=== PATIENT | female | born 1990 | race Caucasian/White ===

== ENCOUNTER 2017-04-14 21:39 | Inpatient (IN) ==
[2017-04-14] MEDS ORDERED: Famotidine 20 MG/2 ML VIAL IVP ONE (21:56)
[2017-04-14] MEDS ORDERED: Promethazine 12.5 MG in 0.9 % Sodium Chloride 50 ML IVPB ONE (21:57)
[2017-04-14] MEDS ORDERED: D5% in 0.45% NACL 1,000 ML IVC SCH (22:00)
--- NOTE | 2017-04-14 22:00 | Emergency Department Note ---
Disposition Clinical Impression: Dehydration, Nausea and vomiting during Disposition: Admitted As Inpatient Condition: Good Nausea/Vomiting/Diarrhea HPI - General Chief complaint: ED Nausea/Vomiting/Diarrhea Stated complaint: vomiting since seen last week Time Seen by Provider: 04/14/17 21:50 Source: patient, family Mode of arrival: ambulatory Limitations: no limitations Nursing Notes Reviewed: Yes Vital Signs Reviewed: Yes - History of Present Illness HPI Narrative: Patient is a currently 8 weeks who complains of persistent nausea and vomiting. Symptoms present for the past several days. She is taking Phenergan and Benadryl at home but states she cannot keep it down. She feels dehydrated. She complains of palpitations and chest pain. She also complains of epigastric pain. She was recently seen for similar symptoms and transferred to [facility]. She states she transiently felt better upon discharge. Pt Subjective Complaint: nausea, vomiting, abdominal pain Onset (ago): day(s) Description of emesis: food contents Associated Abdominal Pain: Yes If pain, Location of pain: epigastric Consistency: intermittent Improves with: nothing Worsens with: vomiting Associated symptoms: Reports: chest pain - Related Data Home Medications Medication Instructions Recorded Confirmed Albuterol Sulfate [Albuterol 1 puff IH Q4HR PRN 01/22/17 04/04/17 Inhaler] Benadryl 25 mg PO Q6HR PRN 04/15/17 04/15/17 Buprenorphine HCl/Naloxone HCl 1 each SL DAILY 04/15/17 04/15/17 [Suboxone 8 mg-2 mg Sl Film] Promethazine [Phenergan] 25 mg PO Q6HR 04/15/17 04/15/17 Previous Rx's Medication Instructions Recorded Ondansetron ODT [Zofran ODT] 4 mg SL Q6HR PRN #20 tab.rapdis 04/03/17 Famotidine [Pepcid] 20 mg PO BID #20 tablet 04/04/17 Ondansetron ODT [Zofran ODT] 4 mg SL Q6HR PRN #12 tab.rapdis 04/04/17 Allergies Allergy/AdvReac Type Severity Reaction Status Date / Time cephalexin [From Keflex] Allergy Rash Verified 04/10/17 22:37 Penicillins [PCN] Allergy Hives Verified 04/10/17 22:37 tramadol [From Ultram] Allergy Chest Pain Verified 04/10/17 22:37 All systems ED: reviewed and negative except as stated. Constitutional: Reports: as per HPI Eyes: Reports: as per HPI ENT ED: Reports: as per HPI Cardiovascular: Reports: chest pain, palpitations Respiratory: Reports: as per HPI Gastrointestinal: Reports: abdominal pain, nausea, vomiting Genitourinary: Reports: as per HPI Musculoskeletal: Reports: back pain Integumentary: Reports: as per HPI Neurological: Reports: as per HPI Psychiatric: Reports: as per HPI Endocrine: Reports: as per HPI Hematological/Lymphatic: Reports: as per HPI Allergic/Immunologic: Reports: as per HPI Past Medical History - Past Medical History Source: patient Medical history: Reports: asthma Surgical history: Reports: cholecystectomy Psychiatric history: Reports: anxiety TOWING PILOT history: Reports: no TOWING PILOT history - Social History Smoking Status: Current every day smoker Smokeless Tobacco Status: No Alcohol use: Reports: none Drug use: Reports: prescription drug abuse Physical Exam - General Limitations: no limitations General appearance: alert, in no apparent distress - Head Head exam: atraumatic - Eye Eye exam: Present: normal appearance - ENT ENT exam: normal exam - Neck Neck exam: Present: normal inspection - Chest Chest inspection: Present: normal inspection, symmetric chest wall rise - Respiratory Respiratory exam: Present: normal lung sounds bilaterally - Cardiovascular Cardiovascular exam: Present: tachycardia, normal heart sounds - Abdominal Exam Abdominal exam: Present: soft, tenderness (minimal tenderness at the epigastrium ) - Rectal Exam Rectal exam: Present: deferred - Extremities Exam Extremities exam: Present: normal inspection - Neurological Exam Neurological exam: Present: alert, oriented X3, CN II-XII intact - Psychiatric Psychiatric exam: Present: normal affect, normal mood - Skin Skin exam: Present: warm, dry, intact Course Course Narrative: Patient complains of continued nausea and vomiting. She is a currently 8 weeks . She is tachycardic on exam. I will hydrate and provide anti- emetics. I will check labs and reassess. - Reevaluation(s) Reevaluation #1: Care to be endorsed to Dr. Melendez at 23:00 pending labs, re-eval Vital Signs Temperature 97.7 F 04/14/17 21:42 Pulse Rate 140 04/14/17 21:42 Respiratory Rate 18 04/14/17 21:42 Blood Pressure 112/77 04/14/17 21:42 O2 Sat by Pulse Oximetry 95 04/14/17 21:42 Temperature 98.3 F 04/15/17 08:00 Pulse Rate 111 04/15/17 08:00 Respiratory Rate 16 04/15/17 08:00 Blood Pressure 123/88 04/15/17 08:00 O2 Sat by Pulse Oximetry 97 04/15/17 08:00 Oxygen Delivery Oxygen Delivery Room Air Nausea/Vomiting/Diarrhea - Medical Records Medical records reviewed: Yes I reviewed the patient's medical records. - Lab Data Result diagrams: 04/14/17 23:15 04/14/17 23:15 Lab Results 04/14/17 04/14/17 04/14/17 Range/Units 22:50 23:15 23:15 WBC 22.8 H (4.3-11.1) K/mcL RBC 5.42 H (3.82-4.97) M/mcL Hgb 16.1 H (11.5-15.4) g/dL Hct 44.5 (35.3-44.9) % MCV 82.1 L (83.0-100.0) fL MCH 29.7 (28.0-33.3) pg MCHC 36.2 H (31.6-35.5) g/dL RDW 12.1 (11.5-14.5) % Plt Count 421 H (140-400) K/mcL MPV 9.7 (9.4-12.4) fL Immature Gran % 0.4 (0-4) % Seg Neutrophils % 72.9 % Lymphocytes % 18.8 % Monocytes % 7.0 % Eosinophils % 0.6 % Basophils % 0.3 % Neutrophils # 16.7 H (1.6-8.9) K/mcL Lymphocytes # 4.3 (0.6-4.6) K/mcL Monocytes # 1.6 H (0.0-1.3) K/mcL Eosinophils # 0.1 (0.0-0.6) K/mcL Basophils # 0.1 (0.0-0.2) K/mcL Sodium 134 L (136-145) mEq/L Potassium 3.5 (3.5-4.5) mEq/L Chloride 99 (98-109) mEq/L Carbon Dioxide 20 (19-29) mEq/L BUN 8 (7-20) mg/dL Creatinine 0.61 (0.57-1.11) mg/dL Est GFR ( Amer) > 60 (> 60) Est GFR (Non-Af Amer) > 60 (> 60) BUN/Creatinine Ratio 13 (6-26) Glucose 100 H (70-99) mg/dL Calculated Osmolality 276 L (280-300) Calcium 10.4 (8.6-10.8) mg/dL Magnesium 2.1 (1.6-2.6) mg/dL Total Bilirubin 0.7 (0.2-1.2) mg/dL AST 38 H (5-34) Units/L ALT 80 H (0-55) Units/L Alkaline Phosphatase 94 (38-126) Units/L Serum Total Protein 8.3 (6.0-8.3) g/dL Albumin 4.6 (3.5-5.0) g/dL Globulin 3.7 H (2.4-3.5) g/dL Albumin/Globulin Ratio 1.2 (1.1-2.2) Lipase 24 (8-78) Units/L Urine Color Dark Yellow (Yellow) Urine Clarity Cloudy A (Clear) Urine pH 6.5 (5.0-8.0) pH Units Ur Specific [place] > 1.030 H (1.010-1.025) Urine Protein >=300 H (Neg-Trace) mg/dL Urine Glucose (UA) 100 H (Normal) mg/dL Urine Ketones >=160 H (Negative) mg/dL Urine Blood Trace H (Negative) Urine Nitrite Negative (Negative) Urine Bilirubin Small H (Negative) Urine Urobilinogen Normal (Normal) mg/dL Ur Leukocyte Esterase Negative (Negative) Urine Microscopic RBC 0-3 (0-3) per hpf Urine Microscopic WBC 3-5 H (0-3) per hpf Ur Squamous Epith Cells Many H (None-Few) per lpf Urine Bacteria Few (None-Few) per hpf Hyaline Casts Few (None-Few) per lpf - EKG Data EKG attestation: Yes I reviewed and interpreted this EKG. EKG results narrative: Sinus tachycardia rate 116 CO 132 QRS 82 QT/QTC 317/386. No acute ST segment elevation
[2017-04-14] MEDS ORDERED: *HR* Promethazine 25 MG/ML VIAL IV ONE (22:15)
--- NOTE | 2017-04-14 23:08 | Emergency Department Note ---
Disposition Clinical Impression: Dehydration, Nausea and vomiting during Disposition: Admitted As Inpatient Condition: Good Referrals: NONE,PCP [Primary Care Provider] - Forms: ED Satisfaction Letter Time of Disposition: 00:53 Nausea/Vomiting/Diarrhea HPI - General Chief complaint: ED Nausea/Vomiting/Diarrhea Stated complaint: vomiting since seen last week Time Seen by Provider: 04/14/17 21:50 Source: patient, family Mode of arrival: ambulatory Limitations: no limitations - History of Present Illness Pt Subjective Complaint: nausea, vomiting, abdominal pain Description of emesis: food contents Associated Abdominal Pain: Yes If pain, Location of pain: epigastric Improves with: nothing Worsens with: vomiting Associated symptoms: Reports: chest pain - Related Data Home Medications Medication Instructions Recorded Confirmed Albuterol Sulfate [Albuterol 1 puff IH Q4HR PRN 01/22/17 04/04/17 Inhaler] Previous Rx's Medication Instructions Recorded Ondansetron ODT [Zofran ODT] 4 mg SL Q6HR PRN #20 tab.rapdis 04/03/17 Famotidine [Pepcid] 20 mg PO BID #20 tablet 04/04/17 Ondansetron ODT [Zofran ODT] 4 mg SL Q6HR PRN #12 tab.rapdis 04/04/17 Allergies Allergy/AdvReac Type Severity Reaction Status Date / Time cephalexin [From Keflex] Allergy Rash Verified 04/10/17 22:37 Penicillins [PCN] Allergy Hives Verified 04/10/17 22:37 tramadol [From Ultram] Allergy Chest Pain Verified 04/10/17 22:37 Constitutional: Reports: as per HPI Eyes: Reports: as per HPI ENT ED: Reports: as per HPI Cardiovascular: Reports: chest pain, palpitations Respiratory: Reports: as per HPI Gastrointestinal: Reports: abdominal pain, nausea, vomiting Genitourinary: Reports: as per HPI Musculoskeletal: Reports: back pain Integumentary: Reports: as per HPI Neurological: Reports: as per HPI Psychiatric: Reports: as per HPI Endocrine: Reports: as per HPI Hematological/Lymphatic: Reports: as per HPI Allergic/Immunologic: Reports: as per HPI Past Medical History - Past Medical History Medical history: Reports: asthma Surgical history: Reports: cholecystectomy Psychiatric history: Reports: anxiety EXTRACT OPERATOR history: Reports: no EXTRACT OPERATOR 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 She has not been able to eat or drink anything over the last several days to weeks. She was seen earlier this week and transferred to [facility] for symptomatic treatment. She is provided with IV Phenergan at that facility and then discharged home with the same medication. She has been unable to take that home would last several days. Denies any other complaints or issues. No vaginal discharge. Denies any fevers or chills at home. Patient has significant emesis secondary to what appears to be hyperemesis gravidarum. Lungs are clear heart is regular abdomen is soft. Patient does have some diminished skin turgor and dry mucous members. IV access. And nausea medication management will be given consideration to get achieved with the Phenergan and her previous evaluation. Labs will be drawn and collected. Expect patient will most likely need admission to the hospital for poorly controlled emesis outpatient management. Patient is otherwise stable resting comfortably by this time and understands a productive course of care. No other concerns or issues noted initially. - Reevaluation(s) Reevaluation #1: She still has significant protein and ketones in her urine. She does have an elevated white blood cell count is most likely reactionary. Patient is still only 8 weeks and is not a viable this point. Patient denies any bleeding or discharge at this point. Fluids been provided along with Phenergan for nausea control. Nausea is better for a while but is coming back at this point. Repeat dosing of Phenergan to be given in the admission process for hyperemesis to be completed. Patient family was informed and comfortable this plan. Discussed this with the hospital since he is comfortable taking care of this patient here in our facility. Dr. Contreras the on-call obstetrics provider was contacted. She requested a serum ketone evaluation test positive she is happy to keep the patient here in the hospital for evaluation. No other concerns or issues noted this point. Fluid hydration and antiemetics to be given. Patient is otherwise resting comfortably in the bed. Time: 00:52 Reevaluation #2: She does have elevated ketones in the serum at this time. Patient will be admitted to the obstetrics floor for further evaluation. Time: 01:28 Vital Signs Temperature 97.7 F 04/14/17 21:42 Pulse Rate 140 04/14/17 21:42 Respiratory Rate 18 04/14/17 21:42 Blood Pressure 112/77 04/14/17 21:42 O2 Sat by Pulse Oximetry 95 04/14/17 21:42 Temperature 97.7 F 04/14/17 21:42 Pulse Rate 140 04/14/17 21:42 Respiratory Rate 18 04/14/17 21:42 Blood Pressure 112/77 04/14/17 21:42 O2 Sat by Pulse Oximetry 95 04/14/17 21:42 Oxygen Delivery Oxygen Delivery Room Air Nausea/Vomiting/Diarrhea - MDM Narrative Medical decision making narrative: Hyperemesis gravidarum. First trimester gestation. - Medical Records Medical records reviewed: Yes I reviewed the patient's medical records. - Lab Data Lab results reviewed: Yes I reviewed the patient's lab results. Result diagrams: 04/14/17 23:15 04/14/17 23:15 Lab Results 04/14/17 04/14/17 04/14/17 Range/Units 22:50 23:15 23:15 WBC 22.8 H (4.3-11.1) K/mcL RBC 5.42 H (3.82-4.97) M/mcL Hgb 16.1 H (11.5-15.4) g/dL Hct 44.5 (35.3-44.9) % MCV 82.1 L (83.0-100.0) fL MCH 29.7 (28.0-33.3) pg MCHC 36.2 H (31.6-35.5) g/dL RDW 12.1 (11.5-14.5) % Plt Count 421 H (140-400) K/mcL MPV 9.7 (9.4-12.4) fL Immature Gran % 0.4 (0-4) % Seg Neutrophils % 72.9 % Lymphocytes % 18.8 % Monocytes % 7.0 % Eosinophils % 0.6 % Basophils % 0.3 % Neutrophils # 16.7 H (1.6-8.9) K/mcL Lymphocytes # 4.3 (0.6-4.6) K/mcL Monocytes # 1.6 H (0.0-1.3) K/mcL Eosinophils # 0.1 (0.0-0.6) K/mcL Basophils # 0.1 (0.0-0.2) K/mcL Sodium 134 L (136-145) mEq/L Potassium 3.5 (3.5-4.5) mEq/L Chloride 99 (98-109) mEq/L Carbon Dioxide 20 (19-29) mEq/L BUN 8 (7-20) mg/dL Creatinine 0.61 (0.57-1.11) mg/dL Est GFR ( Amer) > 60 (> 60) Est GFR (Non-Af Amer) > 60 (> 60) BUN/Creatinine Ratio 13 (6-26) Glucose 100 H (70-99) mg/dL Calculated Osmolality 276 L (280-300) Calcium 10.4 (8.6-10.8) mg/dL Magnesium 2.1 (1.6-2.6) mg/dL Total Bilirubin 0.7 (0.2-1.2) mg/dL AST 38 H (5-34) Units/L ALT 80 H (0-55) Units/L Alkaline Phosphatase 94 (38-126) Units/L Serum Total Protein 8.3 (6.0-8.3) g/dL Albumin 4.6 (3.5-5.0) g/dL Globulin 3.7 H (2.4-3.5) g/dL Albumin/Globulin Ratio 1.2 (1.1-2.2) Lipase 24 (8-78) Units/L Urine Color Dark Yellow (Yellow) Urine Clarity Cloudy A (Clear) Urine pH 6.5 (5.0-8.0) pH Units Ur Specific [place] > 1.030 H (1.010-1.025) Urine Protein >=300 H (Neg-Trace) mg/dL Urine Glucose (UA) 100 H (Normal) mg/dL Urine Ketones >=160 H (Negative) mg/dL Urine Blood Trace H (Negative) Urine Nitrite Negative (Negative) Urine Bilirubin Small H (Negative) Urine Urobilinogen Normal (Normal) mg/dL Ur Leukocyte Esterase Negative (Negative) Urine Microscopic RBC 0-3 (0-3) per hpf Urine Microscopic WBC 3-5 H (0-3) per hpf Ur Squamous Epith Cells Many H (None-Few) per lpf Urine Bacteria Few (None-Few) per hpf Hyaline Casts Few (None-Few) per lpf
[2017-04-14 23:25] LABS: Basophils # 0.1 K/mcL (0.0-0.2); Basophils % 0.3 %; Eosinophils # 0.1 K/mcL (0.0-0.6); Eosinophils % 0.6 %; Hematocrit 44.5 % (35.3-44.9); Hemoglobin 16.1 g/dL (11.5-15.4); Immature Granulocytes % 0.4 % (0-4); Lymphocytes # 4.3 K/mcL (0.6-4.6); Lymphocytes % 18.8 %; Mean Corpuscular HGB Conc 36.2 g/dL (31.6-35.5); Mean Corpuscular Hemoglobin 29.7 pg (28.0-33.3); Mean Corpuscular Volume 82.1 fL (83.0-100.0); Mean Platelet Volume 9.7 fL (9.4-12.4); Monocytes # 1.6 K/mcL (0.0-1.3); Neutrophils # 16.7 K/mcL (1.6-8.9); Platelet Count 421 K/mcL (140-400); Red Blood Count 5.42 M/mcL (3.82-4.97); Red Cell Distribution Width 12.1 % (11.5-14.5); Segmented Neutrophils % 72.9 %
[2017-04-14 23:36] LABS: Alanine Aminotransferase 80 Units/L (0-55); Albumin 4.6 g/dL (3.5-5.0); Albumin/Globulin Ratio 1.2 (1.1-2.2); Alkaline Phosphatase 94 Units/L (38-126); Aspartate Amino Transferase 38 Units/L (5-34); BUN/Creatinine Ratio 13 (6-26); Bilirubin,Total 0.7 mg/dL (0.2-1.2); Blood Urea Nitrogen 8 mg/dL (7-20); Calcium 10.4 mg/dL (8.6-10.8); Carbon Dioxide 20 mEq/L (19-29); Chloride 99 mEq/L (98-109); Globulin 3.7 g/dL (2.4-3.5); Glucose 100 mg/dL (70-99); Lipase 24 Units/L (8-78); Magnesium 2.1 mg/dL (1.6-2.6); Osmolality,Calculated 276 (280-300); Potassium 3.5 mEq/L (3.5-4.5); Sodium 134 mEq/L (136-145); Total Protein 8.3 g/dL (6.0-8.3); eGFR For African Americans > 60 (> 60); eGFR For Non-African Americans > 60 (> 60)
[2017-04-14 23:59] LABS: Bilirubin,Urine Small (Negative); Blood,Urine Trace (Negative); Clarity,Urine Cloudy (Clear); Color,Urine Dark Yellow (Yellow); Glucose,Urine (UA) 100 mg/dL (Normal); Ketones,Urine >=160 mg/dL (Negative); Leukocyte Esterase,Urine Negative (Negative); Nitrite,Urine Negative (Negative); PH,Urine 6.5 pH Units (5.0-8.0); Protein,Urine >=300 mg/dL (Neg-Trace); Specific Gravity,Urine > 1.030 (1.010-1.025); Urobilinogen,Urine Normal (Normal)
[2017-04-15] LABS: Bacteria,Urine Few per hpf (None-Few); Hyaline Casts,Urine Few per lpf (None-Few); RBC,Urine 0-3 per hpf (0-3); Squamous Epithelial Cell,Urine Many per lpf (None-Few)
[2017-04-15] MEDS ORDERED: *HR* Promethazine 25 MG/ML VIAL IVP ONE (01:27)
[2017-04-15] MEDS: D5% in 0.45% NACL 1,000 ML IVC SCH ×4 (01:47→22:10)
[2017-04-15] MEDS: Promethazine 25 MG in 0.9 % Sodium Chloride 50 ML IVPB SCH ×3 (02:18→15:23)
[2017-04-15 03:09] LABS: Amphetamine Screen,Urine Negative ng/mL (Cutoff=1000); Barbiturate Screen,Urine Negative ng/mL (Cutoff=200); Benzodiazepines Screen,Urine Negative ng/mL (Cutoff=200); Cannabinoid Screen,Urine Positive ng/mL (Cutoff = 50); Cocaine Screen,Urine Negative ng/mL (Cutoff= 300); Opiate Screen,Urine Negative ng/mL (Cutoff=300); Phencyclidine Screen,Urine Negative ng/mL (Cutoff=25)
[2017-04-15] MEDS: Famotidine 20 MG/2 ML VIAL IVP SCH ×2 (05:54→18:12)
--- NOTE | 2017-04-15 08:53 | OB/GYN History & Physical ---
Date of Encounter: 04/15/17 Time of Encounter: 07:50 Assessment and Plan (1) Nausea and vomiting during Current visit: Yes Status: Acute BP is normotensive at 123/88. She is afebrile. Tachycardia at 111 likely secondary to some dehydration. Elevated liver enzymes likely secondary to hyperemesis. Patient denies any history of hepatitis. Elevated Beta- hydroxybuyric acid likely secondary to hyperemesis. Corrected AG at 13.5. Slightly hyponatremic. Other electrolytes within normal ranges. Lipase within normal range. UA non indicative of infection. UDS was positive for THC. WBC elevated at 22.8 which is likely reactionary secondary to dehydration. - Continue IV fluids. - Continue Bendaryl PRN. - Pepcid. - Continue Phenergan. - Regular diet. - Obtain lab records from [facility]. (2) Dehydration Current visit: Yes Status: Acute (3) Drug addiction Current visit: No Status: Acute Patient has been taking suboxone at home for past 6 months. (4) 9 weeks gestation of Current visit: Yes Status: Acute History of Present Illness Chief complaint: Nausea/vomiting HPI: Ms. Callahan is a 27 year old female at 9 weeks gestation that presents for nausea/vomiting. Patient says that she started experiencing symptoms of MCCOY, ear aches, head congestion, cough, fever, chills, and total body cramps on . She then proceeded to have persistent vomiting everyday since 03/30/17. She says she has not been able to eat anything since then because she ends up vomiting anything she eats. She has been taking Phenergan and Benadryl at home but states that she hasn't been able to keep it down. She reported to the ER at [facility] on 04/10/17 and was discharged after feeling better, but came to [place] ER on 04/14/17 after she got worse again. Patient had significant protein and ketones in her urine and had an elevated WBC count. She was complaining of chest pain last night with radiation to her left arm. An EKG was done and showed a sinus tachycardia with no ST-elevations or other ischemic changes. No significant changes of EKG from 2005. When seen today, patient says she feels much better than last night. She denies any MCCOY, vision changes, fever, chills, or dizziness, but still admits to some nausea. Last time she vomited was at 0200 at night. She says that she has been able to eat some crackers today and not vomit for the first time since 03/30/17. She denies having any blood in her urine. She says she has not had a bowel movement since her symptoms started on the . She does admit that she had some minor vaginal blood spotting 3 days ago. Patient says that she has been on suboxone for the past 6 months. She denies any history of hepatitis. Agree with above note, patient states that the last time she "Suboxone off the straight was 23 days ago. She states she has had nothing in that time symptoms have progressively gotten worse since then also. On the patient did have a positive opiate drug screen. Patient was in our Suboxone group in the past but according to the physician that ran that practice she was dismissed for noncompliance. Patient states she was seeing someone up in [place] but has not done there in some time now. Patient's had 3 visits in the last week for similar complaints it was noted that her white count has slowly been elevating and urinalysis looks like she might have a UTI. Patient has characteristics of some ongoing through withdrawals we will consult the hospitalist to evaluate the patient go-ahead started on antibiotics and then wait and see what additional laboratory might need. At this time we will wait to see what they recommend before changing her antinausea medicine Past Med Surg Social Fam HX - Past Medical History Medical history: asthma Psychiatric history: anxiety - Past Surgical History Surgical History: cholecystectomy - Social History Smoking Status: Current every day smoker Smokeless Tobacco Status: No Alcohol use: none Drug use: prescription drug abuse Obstetrical History - Pregnancies : 5 Para: 4 Term: 4 : 0 Ab's: 0 Livin Medications and Allergies Albuterol Sulfate [Albuterol Inhaler] 1 puff IH Q4HR PRN 01/22/17 [History] Ondansetron ODT [Zofran ODT] 4 mg SL Q6HR PRN #20 tab.rapdis 04/03/17 [Rx] Famotidine [Pepcid] 20 mg PO BID #20 tablet 04/04/17 [Rx] Ondansetron ODT [Zofran ODT] 4 mg SL Q6HR PRN #12 tab.rapdis 04/04/17 [Rx] Benadryl 25 mg PO Q6HR PRN 04/15/17 [History] Buprenorphine HCl/Naloxone HCl [Suboxone 8 mg-2 mg Sl Film] 1 each SL DAILY 10/25 [History] Promethazine [Phenergan] 25 mg PO Q6HR 04/15/17 [History] 3 Allergy/AdvReac Type Severity Reaction Status Date / Time cephalexin [From Keflex] Allergy Rash Verified 04/10/17 22:37 Penicillins [PCN] Allergy Hives Verified 04/10/17 22:37 tramadol [From Ultram] Allergy Chest Pain Verified 04/10/17 22:37 Exam - Vital Signs Vital signs: Initial Vital Signs Temp Pulse Resp BP Pulse Ox 97.7 F 140 18 112/77 95 04/14/17 21:42 04/14/17 21:42 04/14/17 21:42 04/14/17 21:42 04/14/17 21:42 - Constitutional Constitutional: well developed, well nourished, no acute distress, average body habitus - Lungs Respiratory exam: CTAB - Cardiovascular Cardiovascular exam: RRR, +S1, +S2 - Abdomen Abdomen: Present: bowel sounds normal. Absent: guarding noted Abdomen detail: right upper quadrant: tenderness (Minor tenderness with deep palpation B/L. ), right lower quadrant: tenderness - Extremities Extremities exam: full ROM, normal inspection, radial pulses palpable and symmetrical Deep Tendon Reflex Grade: 2+ Normal Results Result Diagrams: 04/14/17 23:15 04/14/17 23:15 Abnormal lab results WBC 22.8 K/mcL (4.3-11.1) H 04/14/17 23:15 RBC 5.42 M/mcL (3.82-4.97) H 04/14/17 23:15 Hgb 16.1 g/dL (11.5-15.4) H 04/14/17 23:15 MCV 82.1 fL (83.0-100.0) L 04/14/17 23:15 MCHC 36.2 g/dL (31.6-35.5) H 04/14/17 23:15 Plt Count 421 K/mcL (140-400) H 04/14/17 23:15 Neutrophils # 16.7 K/mcL (1.6-8.9) H 04/14/17 23:15 Monocytes # 1.6 K/mcL (0.0-1.3) H 04/14/17 23:15 Sodium 134 mEq/L (136-145) L 04/14/17 23:15 Glucose 100 mg/dL (70-99) H 04/14/17 23:15 Calculated Osmolality 276 (280-300) L 04/14/17 23:15 AST 38 Units/L (5-34) H 04/14/17 23:15 ALT 80 Units/L (0-55) H 04/14/17 23:15 Globulin 3.7 g/dL (2.4-3.5) H 04/14/17 23:15 Beta-Hydroxybutyric Acd 1.75 mmol/L (0.02-0.27) H 04/15/17 01:08 EST Urine Clarity Cloudy (Clear) A 04/14/17 22:50 Ur Specific [place] > 1.030 (1.010-1.025) H 04/14/17 22:50 Urine Protein >=300 mg/dL (Neg-Trace) H 04/14/17 22:50 Urine Glucose (UA) 100 mg/dL (Normal) H 04/14/17 22:50 Urine Ketones >=160 mg/dL (Negative) H 04/14/17 22:50 Urine Blood Trace (Negative) H 04/14/17 22:50 Urine Bilirubin Small (Negative) H 04/14/17 22:50 Urine Microscopic WBC 3-5 per hpf (0-3) H 04/14/17 22:50 Ur Squamous Epith Cells Many per lpf (None-Few) H 04/14/17 22:50 U Marijuana (THC) Screen Positive ng/mL (Cutoff = 50) H 04/15/17 02:50 All other labs normal. - Attending Attestation I examined this patient and my medical decision-making was reviewed with the Resident Physician. I agree with the documented findings, disposition and treatment plan as described except to the extent set forth below. Rafael Vazquez DO
[2017-04-15] MEDS ORDERED: Gentamicin 120 MG in 0.9 % Sodium Chloride 100 ML IVPB ONE (13:27)
--- NOTE | 2017-04-15 14:37 | Internal Medicine Consult Note ---
Date of Encounter: 04/15/17 Time of Encounter: 14:33 - Assessment and Plan (1) Nausea and vomiting during Current Visit: Yes Status: Acute Assessment and plan: suspect multifactorial with hyperemesis gravidarum. Also component of suboxone withdrawal and possible UTI/SIRS. (2) Drug addiction Current Visit: No Status: Acute Assessment and plan: Uses 1/2 tab suboxone BID. Will start subutex 2mg QD for now and monitor response - discussed risk and benefit with patient related to 1st trimester and potential for harm, addiction. Also d/w primary service. Will need to establish with Dr Davila and wean off. (3) SIRS (systemic inflammatory response syndrome) Current Visit: Yes Status: Acute Assessment and plan: urine and blood cx ordered Possible UTI On empiric gent IV IVF trend lactate (4) UTI (urinary tract infection) Current Visit: Yes Status: Acute Assessment and plan: on antibiotics Qualifiers: Urinary tract infection type: acute cystitis Qualified Code(s): N30.00 - Acute cystitis without hematuria (5) 9 weeks gestation of Current Visit: Yes Status: Acute Assessment and plan: management per OB. Will need social work, case packer and for patient to see Dr davila for comprehensive care in this complicated . High risk for morbidity and mortality due to the above Internal Medicine - CN: HPI - Data of Consult Requesting Physician: Michelle Contreras - Consult Narrative Reason for consult: Withdrawal, emesis, elevated WBC History of present illness: Ms. Callahan is a 27 year old female who has not received pre-rolo care and is approx 8 week (has 5 children at home) who presents with intracted n/v since Mar. Found elevated WBC and pyuria suspicious for UTI. Of not, she has been a self-prescribed suboxone user 1/2 tab BID for last 6-8 months. She was previously self medicating with off the streets opiate for her dental pain but transitioned to suboxone as she was told that it would not cause her to be addicted - unlike pain medications. Her last subutex dose was 3 days ago. She is displaying new diarrhea today along with chest, abdo cramps, anxiety concerning for acute suboxone withdrawal. ROS positive for chills. Past Med Surg Social Fam HX - Past Medical History Medical history: asthma Psychiatric history: anxiety - Past Surgical History Surgical History: cholecystectomy - Social History Smoking Status: Current every day smoker Smokeless Tobacco Status: No Alcohol use: none Drug use: prescription drug abuse - Additional Family History Additional family history: HTN Review of systems: ROS 14 point review of systems reviewed as best as possible given presentation. Pertinent positive or negative as per HPI or otherwise reviewed as negative Internal Medicine - CN: Meds Albuterol Sulfate [Albuterol Inhaler] 1 puff IH Q4HR PRN 01/22/17 [History] Ondansetron ODT [Zofran ODT] 4 mg SL Q6HR PRN #20 tab.rapdis 04/03/17 [Rx] Famotidine [Pepcid] 20 mg PO BID #20 tablet 04/04/17 [Rx] Ondansetron ODT [Zofran ODT] 4 mg SL Q6HR PRN #12 tab.rapdis 04/04/17 [Rx] Benadryl 25 mg PO Q6HR PRN 04/15/17 [History] Buprenorphine HCl/Naloxone HCl [Suboxone 8 mg-2 mg Sl Film] 1 each SL DAILY 10/25 [History] Promethazine [Phenergan] 25 mg PO Q6HR 04/15/17 [History] 3 Allergy/AdvReac Type Severity Reaction Status Date / Time cephalexin [From Keflex] Allergy Rash Verified 04/10/17 22:37 Penicillins [PCN] Allergy Hives Verified 04/10/17 22:37 tramadol [From Ultram] Allergy Chest Pain Verified 04/10/17 22:37 Internal Medicine - CN: Exam - Constitutional Vitals: Temp Pulse Resp BP Pulse Ox 98.6 F 93 16 152/99 98 04/15/17 13:32 04/15/17 13:32 04/15/17 13:32 04/15/17 13:32 04/15/17 13:32 Exam: General - AAO x 3 Psych - Appropriate affect/speech. No agitation Eyes - GIBSON. Eye lids intact. No scleral icterus Heart - Sinus. RRR. S1 and S2 present. No added HS/murmurs appreciated. No elevated JVD appreciated. Lung - Adequate air entry b/l, No crackles/wheezes appreciated GI - Soft, non-tender. No hepatosplenomegaly/ascites. BS+ - No CVA/suprapubic tenderness or palpable bladder distension Skin - Intact. No rash/petechiae/ecchymosis. Warm extremities Internal Medicine - CN: Reslt - Labs CBC & Chem 7: 04/14/17 23:15 04/14/17 23:15 Consult Discharge Plan - Plan Referrals: NONE,PCP [Primary Care Provider] -
--- NOTE | 2017-04-15 14:56 | OB/GYN Progress Note ---
Date of Encounter: 04/15/17 Time of Encounter: 14:45 - Assessment and Plan (1) Chest pain Current Visit: No Status: Acute Patient unable to describe chest pain symptoms in full detail. EKG was ordered and revealed a normal sinus rhythm with no ST-elevations or signs of ischemic changes. Qualifiers: Chest pain type: unspecified Qualified Code(s): R07.9 - Chest pain, unspecified (2) Nausea and vomiting during Current Visit: Yes Status: Acute Patient continues to feel nausea and is vomiting. She has been unable to eat. Given her symptoms and history of suboxone use and the fact that her last dose was 3 days ago and she has been taking it intermittently for the past month, her current state is probably a combination of hyperemesis gravidum and opiod withdrawl. - Internal medicine consult order. - Continue IV fluids. - Continue Bendaryl PRN. - Pepcid. - Continue Phenergan. - Regular diet. - Obtain lab records from [facility]. (3) Dehydration Current Visit: Yes Status: Acute - Continue IV fluids. (4) Drug addiction Current Visit: No Status: Acute Per IM consult, patient has been started on suboxone. (5) UTI (urinary tract infection) Current Visit: Yes Status: Acute Possible UTI. Per IM consult, urine and blood culture were ordered. - On Gentamicin. Qualifiers: Urinary tract infection type: acute cystitis Hematuria presence: without hematuria Qualified Code(s): N30.00 - Acute cystitis without hematuria (6) 9 weeks gestation of Current Visit: Yes Status: Acute Subjective - Subjective Principal diagnosis: Nausea/vomiting Interval history: Patient says that she has been having chest pain. She said it was located all across her chest. She continues to complain of nausea, muscle aches, rhinorrea, diarrhea, and insomnia. She denies any fever. She said she was had two incidents of vomiting since this morning. She has still been unable to eat without feeling nauseous and vomiting. She refused to give more information as she was afraid of vomiting. I evaluated the patient with the resident and agree with the above Objective - Vital Signs Vital Signs: Vital Signs Temp Pulse Pulse Resp BP Pulse Ox 04/15/17 13:32 98.6 F 93 16 152/99 98 04/15/17 08:00 98.3 F 111 111 16 123/88 97 04/15/17 06:17 97.5 F L 95 16 119/80 98 04/15/17 01:45 EST 98.5 F 108 16 118/87 97 04/15/17 01:20 EST 16 132/70 Intake and Output 04/15/17 04/15/17 04/15/17 00:59 07:59 15:59 Intake Total 1250 / 1250 Output Total 800 / 800 Balance 450 / 450 Intake: IV Fluids 950 / 950 D5% And 0.45% Nacl 1000 Ml Bag 950 / 950 1,000 ML @ 150 mls/hr IVC . Q6H40M [facility] Rx#:[id number] Phenergan 25 MG In 0.9 % Sodium Chloride 50 ML @ 204 mls/hr IVPB Q8HR [facility] Rx#:[id number] Oral 300 / 300 Output: Urine 500 / 500 Emesis 300 / 300 Other: Stool Consistency liquid Stool Color Green # Bowel Movements 3 Weight Patient Weight 04/15/17 22:59 Weight 72.8 kg - Exam Comments: Patient refused physical examination. - Labs Labs: Abnormal lab results WBC 22.8 K/mcL (4.3-11.1) H 04/14/17 23:15 RBC 5.42 M/mcL (3.82-4.97) H 04/14/17 23:15 Hgb 16.1 g/dL (11.5-15.4) H 04/14/17 23:15 MCV 82.1 fL (83.0-100.0) L 04/14/17 23:15 MCHC 36.2 g/dL (31.6-35.5) H 04/14/17 23:15 Plt Count 421 K/mcL (140-400) H 04/14/17 23:15 Neutrophils # 16.7 K/mcL (1.6-8.9) H 04/14/17 23:15 Monocytes # 1.6 K/mcL (0.0-1.3) H 04/14/17 23:15 Sodium 134 mEq/L (136-145) L 04/14/17 23:15 Glucose 100 mg/dL (70-99) H 04/14/17 23:15 Calculated Osmolality 276 (280-300) L 04/14/17 23:15 AST 38 Units/L (5-34) H 04/14/17 23:15 ALT 80 Units/L (0-55) H 04/14/17 23:15 Globulin 3.7 g/dL (2.4-3.5) H 04/14/17 23:15 Beta-Hydroxybutyric Acd 1.75 mmol/L (0.02-0.27) H 04/15/17 01:08 EST Urine Clarity Cloudy (Clear) A 04/14/17 22:50 Ur Specific [place] > 1.030 (1.010-1.025) H 04/14/17 22:50 Urine Protein >=300 mg/dL (Neg-Trace) H 04/14/17 22:50 Urine Glucose (UA) 100 mg/dL (Normal) H 04/14/17 22:50 Urine Ketones >=160 mg/dL (Negative) H 04/14/17 22:50 Urine Blood Trace (Negative) H 04/14/17 22:50 Urine Bilirubin Small (Negative) H 04/14/17 22:50 Urine Microscopic WBC 3-5 per hpf (0-3) H 04/14/17 22:50 Ur Squamous Epith Cells Many per lpf (None-Few) H 04/14/17 22:50 U Marijuana (THC) Screen Positive ng/mL (Cutoff = 50) H 04/15/17 02:50
[2017-04-15] MEDS: *HR* Buprenorphine HCl 2 MG SUBLINGUAL TABLET SL SCH (15:46)
[2017-04-15] MEDS ORDERED: Nicotine 14 MG PATCH.TD24 TD SCH (22:15)
[2017-04-16] MEDS: Promethazine 25 MG in 0.9 % Sodium Chloride 50 ML IVPB SCH ×2 (00:02→08:16)
[2017-04-16] MEDS: D5% in 0.45% NACL 1,000 ML IVC SCH (04:55)
[2017-04-16 05:21] LABS: Basophils % 0.2 %; Eosinophils # 0.3 K/mcL (0.0-0.6); Eosinophils % 1.9 %; Hematocrit 36.2 % (35.3-44.9); Immature Granulocytes % 0.3 % (0-4); Lymphocytes # 4.7 K/mcL (0.6-4.6); Lymphocytes % 32.5 %; Mean Corpuscular HGB Conc 35.4 g/dL (31.6-35.5); Mean Corpuscular Hemoglobin 29.2 pg (28.0-33.3); Mean Corpuscular Volume 82.6 fL (83.0-100.0); Mean Platelet Volume 9.8 fL (9.4-12.4); Monocytes # 0.9 K/mcL (0.0-1.3); Monocytes % 6.1 %; Neutrophils # 8.6 K/mcL (1.6-8.9); Platelet Count 293 K/mcL (140-400); Red Blood Count 4.38 M/mcL (3.82-4.97)
[2017-04-16 05:22] LABS: Hemoglobin 12.8 g/dL (11.5-15.4)
[2017-04-16 05:35] LABS: Alanine Aminotransferase 74 Units/L (0-55); Albumin/Globulin Ratio 1.1 (1.1-2.2); Alkaline Phosphatase 73 Units/L (38-126); Aspartate Amino Transferase 36 Units/L (5-34); Bilirubin,Direct 0.4 mg/dL (0.0-0.5); Bilirubin,Indirect 0.4 mg/dL (0.0-1.2); Bilirubin,Total 0.8 mg/dL (0.2-1.2); Calcium 8.9 mg/dL (8.6-10.8); Carbon Dioxide 22 mEq/L (19-29); Chloride 104 mEq/L (98-109); Globulin 3.1 g/dL (2.4-3.5); Glucose 121 mg/dL (70-99); Magnesium 1.4 mg/dL (1.6-2.6); Osmolality,Calculated 278 (280-300); Potassium 2.7 mEq/L (3.5-4.5); Sodium 135 mEq/L (136-145); eGFR For African Americans > 60 (> 60); eGFR For Non-African Americans > 60 (> 60)
[2017-04-16 05:36] LABS: Albumin 3.3 g/dL (3.5-5.0); Total Protein 6.4 g/dL (6.0-8.3)
[2017-04-16 05:49] LABS: BUN/Creatinine Ratio 6 (6-26); Blood Urea Nitrogen 3 mg/dL (7-20)
[2017-04-16] MEDS: Famotidine 20 MG/2 ML VIAL IVP SCH (06:43)
[2017-04-16] MEDS ORDERED: Potassium Chloride Elixir 20 MEQ/15 ML UDC PO ONE (08:10)
[2017-04-16] MEDS: *HR* Buprenorphine HCl 2 MG SUBLINGUAL TABLET SL SCH (08:17)
[2017-04-16 08:59] LABS: Hepatitis A Antibody IgM Nonreactive (Nonreactive); Hepatitis B Core IgM Nonreactive (Nonreactive); Hepatitis B Surface Antigen Nonreactive (Nonreactive); Hepatitis C Virus Antibody Nonreactive (Nonreactive)
[2017-04-16 12:04] VITALS: BP 125/87
--- NOTE | 2017-04-16 13:25 | OB/GYN Progress Note ---
Date of Encounter: 04/16/17 Time of Encounter: 13:22 - Assessment and Plan (1) Nausea and vomiting during Status: Resolved Patient states [facility] prescribed phenergen and benadryl as prescribed by [facility]. Requesting Phenergen. Discussed with Dr. Willoughby will give reglan upon discharge. -Patient stable for discharge, awaiting medicine final recommendations. (2) Drug addiction Status: Acute Patient enrolled in subutex clinic and follow up weekly group meetings. -FU already scheduled with Dr. Akins Subjective - Subjective Principal diagnosis: Opiate Withdrawal Interval history: Pt states no emesis since 1899 last night, tolerating diet without difficulty. States had BM Patient is tearful and requesting to be discharged immediately. She is requesting a refill of phenergen despite tremors. She is willing to begin subutex clinic with the providers here at [place]. She expresses motivation to get sober once no longer . She expressed curiosity about recovery. She does state her nausea and vomitting has improved with administration of subutex. Antepartum ROS: movement normal, no loss of fluid, no vaginal bleeding Objective - Vital Signs Vital Signs: Intake and Output 04/15/17 04/16/17 04/16/17 23:59 07:59 15:59 Intake Total 200 / 300 Balance 200 / -200 Intake: IV Fluids 200 / 200 Potassium Chloride 10 mEq/100mL 200 / 200 10 meq In 100 ml @ 100 mls/hr IVPB Q1H [facility] Rx#:[id number] - Exam Auscultation: bilateral: normal Abdomen: Present: normal appearance, soft. Absent: tenderness - Labs Labs: Abnormal lab results WBC 14.5 K/mcL (4.3-11.1) H 04/16/17 05:11 MCV 82.6 fL (83.0-100.0) L 04/16/17 05:11 Lymphocytes # 4.7 K/mcL (0.6-4.6) H 04/16/17 05:11 Sodium 135 mEq/L (136-145) L 04/16/17 05:11 Potassium 2.7 mEq/L (3.5-4.5) L 04/16/17 05:11 BUN 3 mg/dL (7-20) L 04/16/17 05:11 Creatinine 0.50 mg/dL (0.57-1.11) L 04/16/17 05:11 Glucose 121 mg/dL (70-99) H 04/16/17 05:11 Calculated Osmolality 278 (280-300) L 04/16/17 05:11 Magnesium 1.4 mg/dL (1.6-2.6) L 04/16/17 05:11 AST 36 Units/L (5-34) H 04/16/17 05:11 ALT 74 Units/L (0-55) H 04/16/17 05:11 Albumin 3.3 g/dL (3.5-5.0) L D 04/16/17 05:11 Beta-Hydroxybutyric Acd 1.75 mmol/L (0.02-0.27) H 04/15/17 01:08 EST Urine Clarity Cloudy (Clear) A 04/14/17 22:50 Ur Specific [place] > 1.030 (1.010-1.025) H 04/14/17 22:50 Urine Protein >=300 mg/dL (Neg-Trace) H 04/14/17 22:50 Urine Glucose (UA) 100 mg/dL (Normal) H 04/14/17 22:50 Urine Ketones >=160 mg/dL (Negative) H 04/14/17 22:50 Urine Blood Trace (Negative) H 04/14/17 22:50 Urine Bilirubin Small (Negative) H 04/14/17 22:50 Urine Microscopic WBC 3-5 per hpf (0-3) H 04/14/17 22:50 Ur Squamous Epith Cells Many per lpf (None-Few) H 04/14/17 22:50 U Marijuana (THC) Screen Positive ng/mL (Cutoff = 50) H 04/15/17 02:50 - Allied health notes Allied health notes reviewed: social work
--- NOTE | 2017-04-16 13:55 | Discharge Summary ---
Date of Encounter: 04/16/17 Time of Encounter: 14:03 - Discharge Diagnosis (1) Nausea and vomiting during Priority: Primary Status: Resolved Comments: Patient now tolerating PO diet -Nausea has improved. -BM today. No emesis for 18 hours. -Patient requesting discharge home with promethazine, but reports tremor and use of benadryl to ameliorate tremor. We will discharge her home with reglan instead of promethazine. -Discussed plan of care with Dr. Willoughby. (2) Drug addiction Priority: Primary Status: Acute Comments: Patient has intake appointment on Sunday with Dr. Akins. -Maternal Recovery group on . -Patient expresses interest in recovery, desires to be a present and available mother. - Discharge Medications Prescriptions: Metoclopramide [Reglan] 10 mg PO Q6HR #30 tablet Home Medications: Albuterol Sulfate [Albuterol Inhaler] 1 puff IH Q4HR PRN 01/22/17 [History] Famotidine [Pepcid] 20 mg PO BID #20 tablet 04/04/17 [Rx] Benadryl 25 mg PO Q6HR PRN 04/15/17 [History] Buprenorphine HCl/Naloxone HCl [Suboxone 8 mg-2 mg Sl Film] 1 each SL DAILY 10/25 [History] Metoclopramide [Reglan] 10 mg PO Q6HR #30 tablet 04/16/17 [Rx] Nicotine Patch [Nicoderm] 14 mg TD DAILY patch.td24 04/16/17 [Rx] Allergies/Adverse Reactions: 3 Allergy/AdvReac Type Severity Reaction Status Date / Time cephalexin [From Keflex] Allergy Rash Verified 04/10/17 22:37 Penicillins [PCN] Allergy Hives Verified 04/10/17 22:37 tramadol [From Ultram] Allergy Chest Pain Verified 04/10/17 22:37 Date of admission: 04/16/17 08:34 Primary care physician: PCP NONE Consults: Medicine Discharging clinician: Rachael Jolly Anticipated date of discharge: 04/16/17 - Patient Status Disposition: Home, Self-Care Condition: Good Overall status at discharge: patient is progressing back to baseline - Discharge Instructions Follow Up With: NONE,PCP [Primary Care Provider] - Renny Akins MD [Partnered Physician] - Additional Instructions: Small meals throughout day - Diet and Activity Activity: increase activity as tolerated Diet: advance to your usual diet Hospital Course [employer]PATCH[employer] Reason for admission: other (Nausea and Vomitting; drug withdrawal) Discharge diagnosis: other (Nausea and Vomitting, Opiate withdrawal) Hospital course: 27 yo presented to [facility] with nausea and vomitting. She was found to be in suboxone withdrawal. Patients symptoms improved upon resuming buprenorphine treatment as an inpatient. Patient did receive one dose of gentamycin for a presumed UTI, however, urine cultures were negative, and antibiotics were discontinued. Patient states nausea improved with administration of phenergen which she was prescribed at [facility] along with benadryl for EPS side effects. Patient understood she would be discharged home with reglan instead of phenergen to see if she tolerated this medication more favorably. All questions were answered and patient expressed understanding of the plan to be discharged home with FU with Dr. Akins for medication assistance on Sunday, and maternal centered recovery group on . Time Attestation: Total time spent providing and/or coordinating discharge services: Time Spent: Less than 30 minutes Exam - Constitutional Vitals: Temp Pulse Resp BP Pulse Ox 98.4 F 96 16 125/87 98 04/16/17 08:10 04/16/17 08:10 04/16/17 08:10 04/16/17 08:10 04/16/17 08:10 General appearance IM: A&O X 3 - Respiratory Respiratory exam: Present: CTAB - Cardiovascular Cardiovascular exam IM: Present: RRR, +S1, +S2. Absent: diastolic murmur, systolic murmur - GI/Abdominal GI/Abdominal exam IM: normal bowel sounds, soft, no peritoneal signs - Extremities Exam Extremities exam IM: Present: normal inspection, radial pulses palpable and symmetrical. Absent: pedal edema - Neurological Exam Neurological exam: normal gait, oriented X3 - VTE Reasons for not Prescribing Prophylaxis: Treatment not Indicated - Low risk for VTE
--- NOTE | 2017-04-16 14:27 | Internal Med Progress Note ---
Date of Encounter: 04/16/17 Time of Encounter: 14:00 - Assessment and plan (1) Nausea and vomiting during Status: Resolved Assessment and plan: Improving; likely related to morning sickness and withdrawal from Suboxone; has been started on Subutex in the hospital along with supportive care with PRN antiemetics; tolerates diet; (2) SIRS (systemic inflammatory response syndrome) Status: Acute Assessment and plan: has leukocytosis and tachycardia, which are likely due to withdrawal and vomiting; WBC count stable; urine culture shows no significant growth. No further antibiotics at this time. (3) UTI (urinary tract infection) Status: Ruled-out Qualifiers: Urinary tract infection type: site unspecified Hematuria presence: without hematuria Qualified Code(s): N39.0 - Urinary tract infection, site not specified (4) Drug withdrawal Status: Acute Assessment and plan: Patient has been using Suboxone obtained off the streets for the last 6-8 months. Encouraged patient to follow up with Dr. Akins for continued Suboxone treatment and obstetrics care. dining services manager on board. Qualifiers: Substance type: opioid Qualified Code(s): F11.23 - Opioid dependence with withdrawal (5) Tobacco abuse Status: Chronic Assessment and plan: Smoking cessation advised. Patient states that she has smoked through her previous 5 pregnancies but had healthy children. She does not see this as a priority at this time. - Subjective Interval history: Feels better; still has nausea and intermittent palpitations but no vomiting, abdominal pain, diarrhea; no fever/chills; - Constitutional Vitals: Temp Pulse Resp BP Pulse Ox 98.4 F 96 16 125/87 98 04/16/17 08:10 04/16/17 08:10 04/16/17 08:10 04/16/17 08:10 04/16/17 08:10 General appearance: Present: A&O X 3, answers questions appropriately - Respiratory Respiratory exam: Present: CTAB. Absent: accessory muscle use, rales, rhonchi, wheezes - Cardiovascular Cardiovascular exam: Present: RRR, +S1, +S2, tachycardia. Absent: diastolic murmur, gallop, rubs, systolic murmur - GI/Abdominal GI/Abdominal exam: Present: normal bowel sounds, soft, no peritoneal signs. Absent: distended, tenderness - Extremities Exam Extremities exam: Present: full ROM, warm, radial pulses palpable and symmetrical. Absent: calf tenderness, cyanotic, pedal edema Internal Medicine: Result - Labs CBC & Chem 7: 04/16/17 05:11 04/16/17 14:16 - VTE Reasons for not Prescribing Prophylaxis: Treatment not Indicated - Low risk for VTE Consult Discharge Plan - Plan Additional Instructions: Small meals throughout day Referrals: NONE,PCP [Primary Care Provider] - Renny Akins MD [Partnered Physician] - Prescriptions: Metoclopramide [Reglan] 10 mg PO Q6HR #30 tablet
--- NOTE | 2017-04-16 16:42 | Electrocardiograph Report ---
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
--- NOTE | 2017-04-16 16:57 | Electrocardiograph Report ---
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
== END 2017-04-16 14:30 | disposition home or self-care (01) | DRG 566 ==
LOC: EMEROO 21:39 → 1NENUOBS 21:39
PROVIDERS: ADMIT Obstetrics & Gynecology; ATTEND Obstetrics & Gynecology

== ENCOUNTER 2017-06-13 11:07 | Observation (INO) ==
[2017-06-13] MEDS ORDERED: Scopolamine Patch 1.5 MG PATCH.TD72 TD SCH (13:15)
[2017-06-13] MEDS ORDERED: Pyridoxine (B-6) 25 MG in Ringers Solution, Lactated 1,000 ML IVPB SCH (13:30)
[2017-06-13] MEDS: Ondansetron 4 MG/2 ML VIAL IVP PRN ×2 (14:43→21:16)
[2017-06-13] MEDS: Pyridoxine (B-6) 25 MG in Ringers Solution, Lactated 1,000 ML IVPB SCH (15:29)
--- NOTE | 2017-06-13 15:36 | OB/GYN History & Physical ---
Date of Encounter: 06/13/17 Time of Encounter: 15:34 Assessment and Plan (1) Dehydration Current visit: No Status: Acute Pt has already received IV fluid bolus in ED after UA showed 160 ketones and high specific gravity. (2) Drug withdrawal Current visit: No Status: Acute Pt hasn't been able to keep down her subutex for the last 2 days. Will try to get nausea and vomiting under control and then resume subutex. Qualifiers: Substance type: opioid Qualified Code(s): F11.23 - Opioid dependence with withdrawal (3) Nausea and vomiting during prior to 22 weeks gestation Current visit: No Status: Acute Pt has failed treatment with zofran, reglan, and phenergan. Admit for observation to antepartum. Will try adding vitamin B6 and phenergan to IV bag. Scopalamine patch ordered as well. History of Present Illness Chief complaint: vomiting HPI: Ms. Callahan is a 27 year old female presenting at 17 weeks 2 days gestation with c/o intractable nausea and vomiting. She was seen earlier today at [place] ED where she received an IV fluid bolus, reglan, zofran, phenergan, and benadryl. She was transferred here due to ongoing vomiting after treatment. Pt reports she has had intermittent vomiting throughout her but that it worsened yesterday afternoon and she hasn't kept anything down since. States that she has been vomiting every 15 minutes and cannot keep anything down including her medications. She reports upper abdominal and epigastric pain that started after the vomiting and only occurs during and immediately after her vomiting episodes. States she has not had a bowel movement in 1 week. States her last prior bowel movement was hard. She is a at 17 weeks gestation with EDC of 11/19 by ultrasound. This has been complicated by recurrent nausea and vomiting. Her only medications are Subutex, vitamins, Reglan and Zofran. States she has not been able to keep down her Subutex for the past 2 days. She also tried taking her Reglan and Zofran at home but vomited this back up as well. Reports chills but no fever. No urinary symptoms. No URI symptoms. No vaginal bleeding or leakage of fluid. She does report positive movement. No chest pain or difficulty breathing. She sees Dr. Akins for OB. States she saw her steeple jack yesterday and reported the nausea and vomiting. She was not given any new medications. [facility] she was told to come back if things got worse. [facility] she wanted to go to [facility] today but did not have enough gas money to get there. She has been on Subutex since March. Prior to that she was on Suboxone. [facility] she used to abuse prescription pain pills but has not used in over 6 months. No other chronic medical problems. She states the only thing that typically works for her nausea when she goes to the hospital is Phenergan and Benadryl. [facility] she was prescribed Reglan and Zofran for home because she told the doctor she did not want to be drowsy with her kids which happens with Phenergan and Benadryl. She has had a cholecystectomy but no other abdominal surgeries. Past Med Surg Social Fam HX - Past Medical History Medical history: asthma Psychiatric history: anxiety - Past Surgical History Surgical History: cholecystectomy - Social History Smoking Status: Current every day smoker Smokeless Tobacco Status: No Alcohol use: none Drug use: prescription drug abuse Obstetrical History - Pregnancies : 5 Para: 4 Term: 4 : 0 Ab's: 0 Livin Medications and Allergies Buprenorphine HCl/Naloxone HCl [Suboxone 8 mg-2 mg Sl Film] 1 each SL DAILY 10/25 [History] Metoclopramide [Reglan] 10 mg PO Q6HR #30 tablet 04/16/17 [Rx] Vit #116/Iron/FA/Dha [ Formula-Dha Softgel] 1 each PO DAILY 08/26 [History] 3 Allergy/AdvReac Type Severity Reaction Status Date / Time cephalexin [From Keflex] Allergy Rash Verified 04/10/17 22:37 Penicillins [PCN] Allergy Hives Verified 04/10/17 22:37 tramadol [From Ultram] Allergy Chest Pain Verified 04/10/17 22:37 Review of System OB All systems PM: reviewed and no additional remarkable complaints except as stated Exam - Vital Signs Vital signs: Initial Vital Signs Temp Pulse Resp BP Pulse Ox 98.4 F 92 16 121/74 99 06/13/17 13:03 06/13/17 13:03 06/13/17 13:03 06/13/17 13:03 06/13/17 13:03 - Constitutional Constitutional: well developed, well nourished, no acute distress - HEENT HEENT: Mucus Membranes Moist - Lungs Respiratory exam: CTAB - Cardiovascular Cardiovascular exam: RRR - Abdomen Abdomen: Present: gravid, non tender - Extremities Extremities exam: normal inspection - Uterus Uterus exam: Present: normal size (below U) Results All other labs normal.
[2017-06-13 16:24] LABS: Amphetamine Screen,Urine Negative ng/mL (Cutoff=1000); Barbiturate Screen,Urine Negative ng/mL (Cutoff=200); Benzodiazepines Screen,Urine Negative ng/mL (Cutoff=200); Cannabinoid Screen,Urine Negative ng/mL (Cutoff = 50); Cocaine Screen,Urine Negative ng/mL (Cutoff= 300); Opiate Screen,Urine Negative ng/mL (Cutoff=300); Phencyclidine Screen,Urine Negative ng/mL (Cutoff=25)
[2017-06-13] MEDS: Promethazine 50 MG in Ringers Solution, Lactated 1,000 ML IVPB SCH (17:56)
[2017-06-13] MEDS ORDERED: *HR* Buprenorphine HCl 8 MG TAB.SUBL SL ONE (19:25)
[2017-06-14] MEDS: Promethazine 50 MG in Ringers Solution, Lactated 1,000 ML IVPB SCH ×3 (00:45→13:29)
[2017-06-14] MEDS: Pyridoxine (B-6) 25 MG in Ringers Solution, Lactated 1,000 ML IVPB SCH ×2 (01:40→09:31)
[2017-06-14] MEDS ORDERED: Acetaminophen 325 MG TABLET PO ONE (05:35)
[2017-06-14] MEDS: Ondansetron 4 MG/2 ML VIAL IVP PRN (06:18)
[2017-06-14] MEDS ORDERED: D5% in Lactated Ringers 1,000 ML IVC SCH (08:00)
[2017-06-14] MEDS ORDERED: Famotidine 20 MG/2 ML VIAL IVP ONE (08:39)
[2017-06-14] MEDS ORDERED: Metoclopramide 10 MG/2 ML VIAL IVP SCH (08:45)
[2017-06-14] MEDS ORDERED: *HR* Buprenorphine HCl 2 MG SUBLINGUAL TABLET SL SCH (09:00)
--- NOTE | 2017-06-14 09:24 | OB/GYN Progress Note ---
Date of Encounter: 06/14/17 Time of Encounter: 09:20 - Assessment and Plan (1) Nausea and vomiting during Current Visit: Yes Status: Resolved Mild improvement in vomiting Change Zofran to scheduled Add Reglan Add Pepcid X1 for epigastric pain Continue other nausea medications Continue IV hydration (2) Chest pain Current Visit: Yes Status: Acute Unlikely cardiac in nature - will not do EKG at this time Consistent with chest pain in the past during vomiting episodes Trial of pepcid Qualifiers: Chest pain type: unspecified Qualified Code(s): R07.9 - Chest pain, unspecified (3) Dehydration Current Visit: Yes Status: Acute Continue IV hydration Electrolytes normal (4) Drug withdrawal Current Visit: Yes Status: Acute Continue Subutex 8mg BID SL - continued to pet counselor patient to remove from her mouth if she needs to vomit while trying to get the medication to dissolve Qualifiers: Substance type: opioid Qualified Code(s): F11.23 - Opioid dependence with withdrawal Subjective - Subjective Principal diagnosis: Nausea/Vomiting Interval history: Pt reports that her nausea continues, but her vomiting has mildly slowed. She is also reporting some epigastric and chest pain that is worse with vomiting and coughing. Her chest pain is tender to palpation and worse with breathing. She denies any history of heart problems and states that her chest and stomach usually feel like this when she is vomiting a lot. She feels very fatigued and is chilling some. She denies fevers, dyspnea, changes in bowels, dysuria, shakiness, or edema. Antepartum ROS: movement normal (irregular, but appropriate for gestational age) Objective - Vital Signs Vital Signs: Vital Signs Temp Pulse Resp BP Pulse Ox 06/14/17 08:08 98.5 F 102 18 153/96 98 06/14/17 05:35 99.1 F 96 16 111/71 96 06/13/17 23:40 98.8 F 98 16 105/63 96 06/13/17 20:00 98.2 F 99 14 138/89 98 06/13/17 16:43 98.5 F 95 16 127/77 98 06/13/17 13:03 98.4 F 92 16 121/74 99 Intake and Output 06/13/17 06/14/17 06/14/17 23:59 07:59 15:59 Intake Total 420 / 420 2702.25 / 2702.25 Output Total 500 / 500 500 / 500 Balance -80 / -80 220. / 2201. Intake: IV Fluids 300 / 300 2702.25 / 2702.25 Phenergan 50 MG In Lactated 2001 / 2001 Ringers 1,000 ML @ 150 mls/hr IVPB .Q6H41M [facility] Rx#:[id number] Vitamin B-6 25 MG In Lactated 300 / 300 700.25 / 700.25 Ringers 1,000 ML @ 125 mls/hr IVPB .Q8H1M [facility] Rx#:[id number] Oral 120 / 120 Output: Urine 300 / 300 500 / 500 Emesis 200 / 200 Other: Stool Characteristics Normal for Patient - Exam Auscultation: bilateral: normal Abdomen: Present: normal appearance, soft, gravid, tenderness (epigastric and RUQ) Comments: Heart RRR, S1 and S2 Chest - tender to palpation along sternum and anterior ribs Normal inspection of extremities, No extremity edema
[2017-06-14] MEDS ORDERED: Ondansetron 4 MG/2 ML VIAL IVP SCH (12:00)
--- NOTE | 2017-06-14 14:20 | Discharge Summary ---
Date of Encounter: 06/14/17 Time of Encounter: 14:20 - Discharge Diagnosis (1) Nausea and vomiting during Priority: Primary Status: Resolved Comments: Pt reports that she is feeling better and her appetite is returning Will continue Reglan and Scopolamine at home. Zofran and Phenergan PRN Encouraged continued hydration (2) Chest pain Priority: Secondary Status: Acute Comments: Much improved with pepcid. Likely related to her vomiting and heartburn Qualifiers: Chest pain type: unspecified Qualified Code(s): R07.9 - Chest pain, unspecified (3) Dehydration Priority: Secondary Status: Acute (4) Drug withdrawal Priority: Secondary Status: Acute Qualifiers: Substance type: opioid Qualified Code(s): F11.23 - Opioid dependence with withdrawal - Discharge Medications Prescriptions: Metoclopramide [Reglan] 10 mg PO Q6HR #30 tablet Ondansetron ODT [Zofran ODT] 4 mg SL Q6HR #60 tab.rapdis Promethazine [Phenergan] 25 mg PO Q6HR #60 tablet Famotidine [Pepcid] 20 mg PO BID PRN #30 tablet PRN Reason: Heartburn Scopolamine Patch [Transderm-Scop] 1.5 mg TD Q72H #4 patch.td72 Home Medications: Buprenorphine HCl/Naloxone HCl [Suboxone 8 mg-2 mg Sl Film] 1 each SL DAILY 10/25 [History] Vit #116/Iron/FA/Dha [ Formula-Dha Softgel] 1 each PO DAILY 08/26 [History] Famotidine [Pepcid] 20 mg PO BID PRN #30 tablet 06/14/17 [Rx] Metoclopramide [Reglan] 10 mg PO Q6HR #30 tablet 06/14/17 [Rx] Ondansetron ODT [Zofran ODT] 4 mg SL Q6HR #60 tab.rapdis 06/14/17 [Rx] Promethazine [Phenergan] 25 mg PO Q6HR #60 tablet 06/14/17 [Rx] Scopolamine Patch [Transderm-Scop] 1.5 mg TD Q72H #4 patch.td72 06/14/17 [Rx] Allergies/Adverse Reactions: 3 Allergy/AdvReac Type Severity Reaction Status Date / Time cephalexin [From Keflex] Allergy Rash Verified 04/10/17 22:37 Penicillins [PCN] Allergy Hives Verified 04/10/17 22:37 tramadol [From Ultram] Allergy Chest Pain Verified 04/10/17 22:37 Data Procedures and tests throughout hospitalization: Laboratory Tests 06/13/17 13:50 Urine Opiates Screen Negative Ur Barbiturates Screen Negative Ur Phencyclidine Scrn Negative Ur Amphetamines Screen Negative U Benzodiazepines Scrn Negative Urine Cocaine Screen Negative U Marijuana (THC) Screen Negative Labs on day of discharge: Labs from last 24 hours 06/13/17 13:50 Urine Opiates Screen Negative Ur Barbiturates Screen Negative Ur Phencyclidine Scrn Negative Ur Amphetamines Screen Negative U Benzodiazepines Scrn Negative Urine Cocaine Screen Negative U Marijuana (THC) Screen Negative Date of admission: 06/13/17 12:08 Primary care physician: PCP AV Discharging clinician: Washington Ruiz Anticipated date of discharge: 06/14/17 - Patient Status Disposition: Home, Self-Care Condition: Good Functional capacity at discharge: independent ambulation Overall status at discharge: patient is progressing back to baseline - Discharge Instructions Follow Up With: NONE,PCP [Primary Care Provider] - Additional Instructions: Take Reglan every 6 hours Use scopolamine patch every 3 days Take Zofran and Phenergan as needed Follow-up with OB Return to the hospital if your symptoms return or worsen - Diet and Activity Activity: increase activity as tolerated Diet: advance to your usual diet Hospital Course HELP DESK INTERN Reason for admission: other (nausea and vomiting) Discharge diagnosis: other (nausea and vomiting) Hospital course: Pt presented with intractable nause and vomiting. She was dehydrated as well. She was taking meds at home for N/V, but they were unable to control her symptoms. During her hospitalization her symptoms have improved. She was also able to take her subutex this morning which she as unable to do at home for the past 2 days. She will be discharged home with scheduled reglan and scopolamine, with zofran and phenergan PRN. Time Attestation: Total time spent providing and/or coordinating discharge services: Time Spent: Less than 30 minutes Exam - Constitutional Vitals: Temp Pulse Resp BP Pulse Ox 98.5 F 102 18 153/96 98 06/14/17 08:08 06/14/17 08:08 06/14/17 08:08 06/14/17 08:08 06/14/17 08:08 General appearance IM: A&O X 3, no acute distress - Respiratory Respiratory exam: Present: CTAB - Cardiovascular Cardiovascular exam IM: Present: RRR, +S1, +S2 - GI/Abdominal GI/Abdominal exam IM: normal bowel sounds, soft, no peritoneal signs - Extremities Exam Extremities exam IM: Present: normal capillary refill, normal inspection - Neurological Exam Neurological exam: alert, no focal deficits - VTE Documentation of Mechanical Device: Intermittent pneumatic compression device - Attending Attestation I examined this patient and my medical decision-making was reviewed with the Resident Physician. I agree with the documented findings, disposition and treatment plan as described. Neida Walsh CNM
[2017-06-14 14:34] VITALS: BP 111/67
== END 2017-06-14 15:31 | disposition home or self-care (01) ==
LOC: 1NENUPED → 1NENUOBS 12:52
PROVIDERS: ADMIT Registered Nurse; ATTEND Registered Nurse

== ENCOUNTER 2017-06-18 23:21 | Observation (INO) ==
[2017-06-18] MEDS ORDERED: 0.9 % Sodium Chloride 1,000 ML IVC ONE (23:28)
[2017-06-18] MEDS ORDERED: *HR* Promethazine 25 MG/ML VIAL IVP ONE (23:28)
--- NOTE | 2017-06-18 23:32 | Emergency Department Note ---
Disposition Clinical Impression: Hyperemesis arising during , Electrolyte abnormality, Dehydration Disposition: Admitted As Inpatient Condition: Fair Time of Disposition: 02:30 General Adult HPI - General Chief complaint: ED Nausea/Vomiting/Diarrhea Stated complaint: , vomiting Time Seen by Provider: 06/18/17 23:22 Source: patient, EMS Mode of arrival: EMS Limitations: no limitations Nursing Notes Reviewed: Yes Vital Signs Reviewed: Yes - History of Present Illness HPI Narrative: Patient is a 27-year-old female currently 18 weeks gestational age presenting to emergency Department with complaint of multiple episodes of nausea and vomiting over the past 3 days. The patient states that she was recently discharged from the hospital for N/V in which she was prescribed medications that were not covered by her insurance so she has been using Zofran which does not help she states that scopolamine patch and Phenergan helped her, however she has been unable to get these medications. Patient reports positive movement, no vaginal bleeding or discharge, and no abdominal pain. Currently the patient's chart history she is currently on Subutex. The patient states that she is unable to keep this down causing her to have withdrawal symptoms. Pain Scale: 1 - Related Data Home Medications Medication Instructions Recorded Confirmed Buprenorphine HCl/Naloxone HCl 1 each SL DAILY 04/15/17 06/13/17 [Suboxone 8 mg-2 mg Sl Film] Vit #116/Iron/FA/Dha 1 each PO DAILY 06/13/17 06/13/17 [ Formula-Dha Softgel] Previous Rx's Medication Instructions Recorded Famotidine [Pepcid] 20 mg PO BID PRN #30 tablet 06/14/17 Metoclopramide [Reglan] 10 mg PO Q6HR #30 tablet 06/14/17 Ondansetron ODT [Zofran ODT] 4 mg SL Q6HR #60 tab.rapdis 06/14/17 Promethazine [Phenergan] 25 mg PO Q6HR #60 tablet 06/14/17 Scopolamine Patch [Transderm-Scop] 1.5 mg TD Q72H #4 patch.td72 06/14/17 Allergies Allergy/AdvReac Type Severity Reaction Status Date / Time cephalexin [From Keflex] Allergy Rash Verified 04/10/17 22:37 Penicillins [PCN] Allergy Hives Verified 04/10/17 22:37 tramadol [From Ultram] Allergy Chest Pain Verified 04/10/17 22:37 All systems ED: reviewed and negative except as stated. Constitutional: Denies: fever, chills ENT ED: Denies: congestion Cardiovascular: Denies: chest pain Respiratory: Denies: cough, wheezes Gastrointestinal: Reports: nausea, vomiting. Denies: abdominal pain, diarrhea Genitourinary: Denies: urgency, dysuria Musculoskeletal: Denies: back pain, neck pain Integumentary: Denies: rash Neurological: Denies: headache Past Medical History - Past Medical History Attestation: Yes The following information was validated with the patient. Medical history: Reports: asthma Surgical history: Reports: cholecystectomy Psychiatric history: Reports: anxiety NITRILES LAB TECHNICIAN history: Reports: no NITRILES LAB TECHNICIAN history : 5 Para: 4 Ab: 0 - Social History Smoking Status: Current every day smoker Smokeless Tobacco Status: No Alcohol use: Reports: none Drug use: Reports: prescription drug abuse Physical Exam Patient is 19-year-old female came in by squad shows appear to be in mild distress she is hunched over in the evening into a puke bag. Her vital signs she is mildly tachycardic and her blood pressure is slightly elevated. - General Limitations: no limitations General appearance: alert, in distress (Patient appears exhausted and she is sitting over forward in bed holding an emesis bag.) - Head Head exam: atraumatic, normocephalic, normal inspection - Eye Eye exam: Present: normal appearance, PERRL, EOMI - ENT ENT exam: normal exam, normal oropharynx, mucous membranes dry - Neck Neck exam: Present: normal inspection, full ROM, trachea midline. Absent: tenderness - Chest Chest inspection: Present: normal inspection, symmetric chest wall rise. Absent : tenderness - Respiratory Respiratory exam: Present: normal lung sounds bilaterally. Absent: respiratory distress, wheezes - Cardiovascular Cardiovascular exam: Present: normal rhythm, tachycardia, normal heart sounds, + S1, +S2 - Abdominal Exam Abdominal exam: Present: soft, Non-Tender, normal bowel sounds - Extremities Exam Extremities exam: Present: normal inspection, full ROM, normal capillary refill. Absent: tenderness, pedal edema - Back Exam Back exam: Present: normal inspection, full ROM. Absent: tenderness, CVA tenderness (R), CVA tenderness (L) - Neurological Exam Neurological exam: Present: alert, oriented X3 - Psychiatric Psychiatric exam: Present: normal affect, normal mood - Skin Skin exam: Present: warm, dry, intact, normal color Course Course Narrative: Plan is to order a UA and chem panel on this patient to check for any electrolyte abnormalities. We will also check heart tones noted the patient Phenergan and Benadryl as she states that when she is admitted previously this is what worked for her. - Reevaluation(s) Reevaluation #1: FHT were 156. Patient was discharged from the hospital 4 days ago in which she was treated given a prescription for Reglan and scopolamine at home and Zofran and Phenergan as needed. Also had a scopolamine patch due to the patient having no resolution of symptoms with IV Phenergan and Benadryl. Plan is wait for labs to result and then consult with OB. Time: 23:37 Reevaluation #2: Discussed the patient's case with Karlene Kunz, [employer] on-call and she agrees to accept the patient under. Request the patient be started on D50. Patient accepted to L&D. Patient is influenza negative. Time: 02:31 Vital Signs Temperature 98.3 F 06/18/17 23:22 Pulse Rate 101 06/18/17 23:22 Respiratory Rate 16 06/18/17 23:22 Blood Pressure 141/107 06/18/17 23:22 O2 Sat by Pulse Oximetry 97 06/18/17 23:22 Temperature 98.3 F 06/18/17 23:22 Pulse Rate 84 06/19/17 02:06 Respiratory Rate 16 06/19/17 02:06 Blood Pressure 139/92 06/19/17 02:06 O2 Sat by Pulse Oximetry 98 06/19/17 02:06 Oxygen Delivery Oxygen Delivery Room Air Medical Decision Making - Medical Records Medical records reviewed: Yes I reviewed the patient's medical records. - Lab Data Lab results reviewed: Yes I reviewed the patient's lab results. Result diagrams: 06/19/17 00:05 06/19/17 00:05 Lab Results 06/19/17 06/19/17 06/19/17 Range/Units 00:05 00:05 00:05 WBC 9.8 (4.3-11.1) K/mcL RBC 3.52 L (3.82-4.97) M/mcL Hgb 10.6 L D (11.5-15.4) g/dL Hct 30.9 L (35.3-44.9) % MCV 87.8 (83.0-100.0) fL MCH 30.1 (28.0-33.3) pg MCHC 34.3 (31.6-35.5) g/dL RDW 13.2 (11.5-14.5) % Plt Count 210 (140-400) K/mcL MPV 10.3 (9.4-12.4) fL Immature Gran % 0.8 (0-4) % Seg Neutrophils % 87.4 % Lymphocytes % 8.8 % Monocytes % 2.4 % Eosinophils % 0.3 % Basophils % 0.3 % Neutrophils # 8.6 (1.6-8.9) K/mcL Lymphocytes # 0.9 (0.6-4.6) K/mcL Monocytes # 0.2 (0.0-1.3) K/mcL Eosinophils # 0.0 (0.0-0.6) K/mcL Basophils # 0.0 (0.0-0.2) K/mcL Sodium 134 L (136-145) mEq/L Potassium 3.2 L (3.5-5.1) mEq/L Chloride 107 (98-107) mEq/L Carbon Dioxide 20 L (23-29) mEq/L BUN 4 L (6-20) mg/dL Creatinine 0.31 L (0.60-1.20) mg/dL Est GFR ( Amer) > 60 (> 60) Est GFR (Non-Af Amer) > 60 (> 60) BUN/Creatinine Ratio 13 (6-26) Glucose 97 (70-105) mg/dL Calculated Osmolality 275 L (280-300) Calcium 8.4 L (8.6-10.3) mg/dL Beta-Hydroxybutyric Acd 0.85 H (0.02-0.27) mmol/L Urine Color (Yellow) Urine Clarity (Clear) Urine pH (5.0-8.0) pH Units Ur Specific [place] (1.010-1.025) Urine Protein (Neg-Trace) mg/dL Urine Glucose (UA) (Normal) mg/dL Urine Ketones (Negative) mg/dL Urine Blood (Negative) Urine Nitrite (Negative) Urine Bilirubin (Negative) Urine Urobilinogen (Normal) mg/dL Ur Leukocyte Esterase (Negative) Urine Microscopic RBC (0-3) per hpf Urine Microscopic WBC (0-3) per hpf Ur Squamous Epith Cells (None-Few) per lpf Urine Bacteria (None-Few) per hpf Hyaline Casts (None-Few) per lpf Ur Culture Indicated? (NO) 06/19/17 Range/Units 01:10 WBC (4.3-11.1) K/mcL RBC (3.82-4.97) M/mcL Hgb (11.5-15.4) g/dL Hct (35.3-44.9) % MCV (83.0-100.0) fL MCH (28.0-33.3) pg MCHC (31.6-35.5) g/dL RDW (11.5-14.5) % Plt Count (140-400) K/mcL MPV (9.4-12.4) fL Immature Gran % (0-4) % Seg Neutrophils % % Lymphocytes % % Monocytes % % Eosinophils % % Basophils % % Neutrophils # (1.6-8.9) K/mcL Lymphocytes # (0.6-4.6) K/mcL Monocytes # (0.0-1.3) K/mcL Eosinophils # (0.0-0.6) K/mcL Basophils # (0.0-0.2) K/mcL Sodium (136-145) mEq/L Potassium (3.5-5.1) mEq/L Chloride (98-107) mEq/L Carbon Dioxide (23-29) mEq/L BUN (6-20) mg/dL Creatinine (0.60-1.20) mg/dL Est GFR ( Amer) (> 60) Est GFR (Non-Af Amer) (> 60) BUN/Creatinine Ratio (6-26) Glucose (70-105) mg/dL Calculated Osmolality (280-300) Calcium (8.6-10.3) mg/dL Beta-Hydroxybutyric Acd (0.02-0.27) mmol/L Urine Color Yellow (Yellow) Urine Clarity Cloudy A (Clear) Urine pH 6.5 (5.0-8.0) pH Units Ur Specific [place] 1.017 (1.010-1.025) Urine Protein Negative (Neg-Trace) mg/dL Urine Glucose (UA) Normal (Normal) mg/dL Urine Ketones >=160 H (Negative) mg/dL Urine Blood Negative (Negative) Urine Nitrite Negative (Negative) Urine Bilirubin Negative (Negative) Urine Urobilinogen Normal (Normal) mg/dL Ur Leukocyte Esterase Negative (Negative) Urine Microscopic RBC 3-5 H (0-3) per hpf Urine Microscopic WBC 0-3 (0-3) per hpf Ur Squamous Epith Cells Many H (None-Few) per lpf Urine Bacteria None Seen (None-Few) per hpf Hyaline Casts None Seen (None-Few) per lpf Ur Culture Indicated? NO (NO) Attestation Statement - Attestation Attestation: I, Shantanu Melendez DO, examined this patient [id number] and my medical decision-making was reviewed with Dr. Ron Luevano, Resident Physician. I agree with the documented findings, disposition and treatment plan as described except to the extent set forth below. Please see my progress notes for details. 27-year-old female that is well known to our emergency room for noncompliance with her nausea and vomiting as well as her Subutex presents emergency room for similar issue. Patient has been admitted or transferred 3 different times for -induced nausea and vomiting along with inability taken pleat or take her Subutex. On presentation here patient had dry mucous membranes appear to be ill. Influenza was negative screening labs otherwise unremarkable except for mild anemia hyponatremia, hypokalemia, decreased bicarbonate. Kidney function is otherwise unremarkable. Urinalysis is negative. Patient's serum ketones as well as urine ketones are significantly elevated. Lengthy discussion was had with the on-call obstetrics providers. Patient has been admitted to their service twice in the past. Reviewed and appreciate their intervention recommendations. Patient will be admitted to the floor for further evaluation. They understand that the patient is most likely a combination of Medrol burst inability to tolerate the medications or prescriptions in the outpatient setting. Patient otherwise rested comfortably in the bed. The heart tones were confirmed at 156. Patient otherwise has not had any emesis while here after being provided the medications. Patient is otherwise stabilized with fluids and nausea medication. Will be admitted at this time for definitive management. See detailed documentation of physical exam, medical intervention, medical decision-making and disposition in the resident physician's note.
[2017-06-19 00:36] LABS: BUN/Creatinine Ratio 13 (6-26); Blood Urea Nitrogen 4 mg/dL (6-20); Calcium 8.4 mg/dL (8.6-10.3); Carbon Dioxide 20 mEq/L (23-29); Chloride 107 mEq/L (98-107); Glucose 97 mg/dL (70-105); Osmolality,Calculated 275 (280-300); Potassium 3.2 mEq/L (3.5-5.1); Sodium 134 mEq/L (136-145); eGFR For African Americans > 60 (> 60); eGFR For Non-African Americans > 60 (> 60)
[2017-06-19] MEDS ORDERED: 0.9 % Sodium Chloride 1,000 ML IVC ONE (01:19)
[2017-06-19 01:21] LABS: Bilirubin,Urine Negative (Negative); Blood,Urine Negative (Negative); Clarity,Urine Cloudy (Clear); Color,Urine Yellow (Yellow); Glucose,Urine (UA) Normal (Normal); Ketones,Urine >=160 mg/dL (Negative); Leukocyte Esterase,Urine Negative (Negative); Nitrite,Urine Negative (Negative); PH,Urine 6.5 pH Units (5.0-8.0); Protein,Urine Negative (Neg-Trace); Specific Gravity,Urine 1.017 (1.010-1.025); Urobilinogen,Urine Normal (Normal)
[2017-06-19 01:22] LABS: Bacteria,Urine None Seen per hpf (None-Few); Hyaline Casts,Urine None Seen per lpf (None-Few); Squamous Epithelial Cell,Urine Many per lpf (None-Few); WBC,Urine 0-3 per hpf (0-3)
[2017-06-19 01:25] LABS: Basophils % 0.3 %; Eosinophils % 0.3 %; Hematocrit 30.9 % (35.3-44.9); Hemoglobin 10.6 g/dL (11.5-15.4); Immature Granulocytes % 0.8 % (0-4); Lymphocytes # 0.9 K/mcL (0.6-4.6); Lymphocytes % 8.8 %; Mean Corpuscular HGB Conc 34.3 g/dL (31.6-35.5); Mean Corpuscular Hemoglobin 30.1 pg (28.0-33.3); Mean Corpuscular Volume 87.8 fL (83.0-100.0); Mean Platelet Volume 10.3 fL (9.4-12.4); Monocytes # 0.2 K/mcL (0.0-1.3); Monocytes % 2.4 %; Neutrophils # 8.6 K/mcL (1.6-8.9); Platelet Count 210 K/mcL (140-400); Red Blood Count 3.52 M/mcL (3.82-4.97); Red Cell Distribution Width 13.2 % (11.5-14.5); Segmented Neutrophils % 87.4 %
[2017-06-19] MEDS ORDERED: Scopolamine Patch 1.5 MG PATCH.TD72 TD ONE (01:37)
[2017-06-19] MEDS ORDERED: Scopolamine Patch 1.5 MG PATCH.TD72 TD SCH (04:15)
[2017-06-19] MEDS ORDERED: *HR* Promethazine 25 MG/ML VIAL ONE (04:17)
[2017-06-19] MEDS: *HR* Promethazine 25 MG/ML VIAL IVP PRN ×3 (04:26→19:17)
[2017-06-19] MEDS: Ondansetron 4 MG/2 ML VIAL IVP PRN ×2 (06:32→14:12)
--- NOTE | 2017-06-19 06:35 | OB/GYN History & Physical ---
Date of Encounter: 06/19/17 Time of Encounter: 06:33 Assessment and Plan (1) Nausea and vomiting during Current visit: Yes Status: Resolved Continue zofran, reglan, phenergan, and scopolamine patches Was unable to get scripts filled from last discharge due to insurance coverage - continue to work with office staff for prior auth Continue IV fluids - encourage po fluid intake (2) Drug withdrawal Current visit: Yes Status: Acute Pt takes Subutex 8mg 1.5 tabs per day - reports not being able to take all of her doses over the past few days Pill count inaccurate upon admission - 2.5 tabs, when she should have 3 tabs Will consider allowing her to take home subutex for now once verified by pharmacy Both rapid urine UDS and full UDS collected on admission Qualifiers: Substance type: opioid Qualified Code(s): F11.23 - Opioid dependence with withdrawal (3) Tobacco abuse Current visit: Yes Status: Chronic (4) Hypokalemia Current visit: Yes Status: Acute K 3.2 - Consult hospitalist for electrolyte management Will check Mag History of Present Illness Chief complaint: Nausea/Vomiting HPI: Ms. Callahan is a 27 year old female at 18w1d presenting to the hospital with intractable nausea, vomiting, and epigastric pain. This has been an ongoing problem for her. She was discharged from the hospital about 3 days ago, but was unable to fill some of her prescriptions due to insurance coverage. During that hospitalization reglan, phenergan, zofran, and scopolamine patch. She is also on Subutex, but reports that she has not been able to take all of her doses due to vomiting. Her dose is 8mg 1.5 tablet per day. She reports other symptoms of subjective fevers, chills, and dry cough that have been going on for the past few days as well. Denies headaches, vision changes, dyspnea, chest pain, changes in bowels, dysuria, or edema. Past Med Surg Social Fam HX - Past Medical History Medical history: asthma Psychiatric history: anxiety, bipolar - Past Surgical History Surgical History: cholecystectomy - Social History Smoking Status: Current every day smoker Smokeless Tobacco Status: No Alcohol use: none Drug use: prescription drug abuse Medications and Allergies Buprenorphine HCl/Naloxone HCl [Suboxone 8 mg-2 mg Sl Film] 1 each SL DAILY 10/25 [History] Vit #116/Iron/FA/Dha [ Formula-Dha Softgel] 1 each PO DAILY 08/26 [History] Famotidine [Pepcid] 20 mg PO BID PRN #30 tablet 06/14/17 [Rx] Metoclopramide [Reglan] 10 mg PO Q6HR #30 tablet 06/14/17 [Rx] Ondansetron ODT [Zofran ODT] 4 mg SL Q6HR #60 tab.rapdis 06/14/17 [Rx] Promethazine [Phenergan] 25 mg PO Q6HR #60 tablet 06/14/17 [Rx] Scopolamine Patch [Transderm-Scop] 1.5 mg TD Q72H #4 patch.td72 06/14/17 [Rx] 3 Allergy/AdvReac Type Severity Reaction Status Date / Time cephalexin [From Keflex] Allergy Rash Verified 04/10/17 22:37 Penicillins [PCN] Allergy Hives Verified 04/10/17 22:37 tramadol [From Ultram] Allergy Chest Pain Verified 04/10/17 22:37 Review of System OB All systems PM: reviewed and no additional remarkable complaints except as stated Exam - Vital Signs Vital signs: Initial Vital Signs Temp Pulse Resp BP Pulse Ox 98.3 F 101 16 141/107 97 06/18/17 23:22 06/18/17 23:22 06/18/17 23:22 06/18/17 23:22 06/18/17 23:22 - Constitutional Constitutional: well developed, well nourished, average body habitus, mild distress - HEENT HEENT: Normocephaly, Mucus Membranes Dry - Lungs Respiratory exam: CTAB - Cardiovascular Cardiovascular exam: RRR, +S1, +S2 - Abdomen Abdomen: Present: bowel sounds normal, gravid Abdomen detail: right upper quadrant: tenderness (epigastric) - Extremities Extremities exam: normal capillary refill, normal inspection Results Result Diagrams: 06/19/17 00:05 06/19/17 00:05 Abnormal lab results RBC 3.52 M/mcL (3.82-4.97) L 06/19/17 00:05 Hgb 10.6 g/dL (11.5-15.4) L D 06/19/17 00:05 Hct 30.9 % (35.3-44.9) L 06/19/17 00:05 Sodium 134 mEq/L (136-145) L 06/19/17 00:05 Potassium 3.2 mEq/L (3.5-5.1) L 06/19/17 00:05 Carbon Dioxide 20 mEq/L (23-29) L 06/19/17 00:05 BUN 4 mg/dL (6-20) L 06/19/17 00:05 Creatinine 0.31 mg/dL (0.60-1.20) L 06/19/17 00:05 Calculated Osmolality 275 (280-300) L 06/19/17 00:05 Calcium 8.4 mg/dL (8.6-10.3) L 06/19/17 00:05 Beta-Hydroxybutyric Acd 0.85 mmol/L (0.02-0.27) H 06/19/17 00:05 Urine Clarity Cloudy (Clear) A 06/19/17 01:10 Urine Ketones >=160 mg/dL (Negative) H 06/19/17 01:10 Urine Microscopic RBC 3-5 per hpf (0-3) H 06/19/17 01:10 Ur Squamous Epith Cells Many per lpf (None-Few) H 06/19/17 01:10 All other labs normal.
[2017-06-19 07:12] LABS: Amphetamine Screen,Urine Negative ng/mL (Cutoff=1000); Barbiturate Screen,Urine Negative ng/mL (Cutoff=200); Benzodiazepines Screen,Urine Negative ng/mL (Cutoff=200); Cannabinoid Screen,Urine Negative ng/mL (Cutoff = 50); Cocaine Screen,Urine Negative ng/mL (Cutoff= 300); Opiate Screen,Urine Negative ng/mL (Cutoff=300); Phencyclidine Screen,Urine Negative ng/mL (Cutoff=25)
[2017-06-19 08:48] LABS: Magnesium 1.8 mg/dL (1.6-2.6)
[2017-06-19] MEDS ORDERED: *HR* Buprenorphine HCl 2 MG SUBLINGUAL TABLET SL SCH ×2 (09:00)
[2017-06-19] MEDS ORDERED: *HR* Buprenorphine HCl 8 MG TAB.SUBL SL SCH (09:00)
[2017-06-19] MEDS: Famotidine 20 MG/2 ML VIAL IVP SCH ×2 (09:04→21:26)
[2017-06-19] MEDS: Metoclopramide 10 MG/2 ML VIAL IVP SCH ×3 (09:07→21:29)
--- NOTE | 2017-06-19 09:59 | Internal Medicine Consult Note ---
Date of Encounter: 06/19/17 Time of Encounter: 09:58 - Assessment and Plan (1) Electrolyte abnormality Current Visit: Yes Status: Acute Assessment and plan: 27/female Referred for multiple electrolyte abnormality. Patient is getting frequently admitted to this hospital for persistent nausea/ vomiting. Noted that patient every admission is getting symptomatic treatment but apparently patient is not getting better. The reason for admission is not yet clear. Patient also takes Suboxone (8 mg tablet) 1.5 tablet per day. I understood that on the pill count she is only lacking 0.5 tablet. Assessment: Patient is not getting her Suboxone due to the insurance issues. There is a possibility that she may be under withdrawal. Plan: We will treat let her electrolyte abnormalities with the replacement. Potassium: 20 mg potassium chloride liquid twice a day. No need to replace calcium at this point. Continue IV hydration. We will repeat labs tomorrow morning. The rest management as per LICENSED SALES ASSISTANT. Thank you for allowing us to participate in the care of Mrs. Callahan. (2) Nausea and vomiting during Current Visit: Yes Status: Resolved Assessment and plan: see above (3) Dehydration Current Visit: Yes Status: Acute Assessment and plan: see above. Internal Medicine - CN: HPI - Data of Consult Requesting Physician: Rafael Vazquez - Consult Narrative History of present illness: 27/female 5, para 4, 18 weeks and 1 day Admitted with persistent nausea, vomiting and epigastric pain. This is ongoing problem after reviewing the chart and it seems that patient is here every week with the same issues. Morning patient is presently on Reglan, Phenergan, Zofran and a scopolamine patch for her ongoing issues. Patient claims that she cannot keep anything down and unable to sleep last night. Patient was asked IVDU and presently on Subutex. She was not able to get her medications refilled because of the insurance issues. Present dosage of some Botox is 1.5 tab per day( 8 mg). Patient denies chest pain, shortness of breath, dizziness, diarrhea, any dysuria or edema feet. Past Med Surg Social Fam HX - Past Medical History Medical history: asthma Psychiatric history: anxiety, bipolar - Past Surgical History Surgical History: cholecystectomy - Social History Smoking Status: Current every day smoker Smokeless Tobacco Status: No Alcohol use: none Drug use: prescription drug abuse - Constitutional Constitutional: as per HPI - EENT Ears: as per HPI - Cardiovascular Cardiovascular ROS IM: as per HPI - Gastrointestinal Gastrointestinal: belching, bloating, dyspepsia, nausea, vomiting Internal Medicine - CN: Meds Buprenorphine HCl/Naloxone HCl [Suboxone 8 mg-2 mg Sl Film] 1 each SL DAILY 10/25 [History] Vit #116/Iron/FA/Dha [ Formula-Dha Softgel] 1 each PO DAILY 08/26 [History] Famotidine [Pepcid] 20 mg PO BID PRN #30 tablet 06/14/17 [Rx] Metoclopramide [Reglan] 10 mg PO Q6HR #30 tablet 06/14/17 [Rx] Ondansetron ODT [Zofran ODT] 4 mg SL Q6HR #60 tab.rapdis 06/14/17 [Rx] Promethazine [Phenergan] 25 mg PO Q6HR #60 tablet 06/14/17 [Rx] Scopolamine Patch [Transderm-Scop] 1.5 mg TD Q72H #4 patch.td72 06/14/17 [Rx] 3 Allergy/AdvReac Type Severity Reaction Status Date / Time cephalexin [From Keflex] Allergy Rash Verified 04/10/17 22:37 Penicillins [PCN] Allergy Hives Verified 04/10/17 22:37 tramadol [From Ultram] Allergy Chest Pain Verified 04/10/17 22:37 Internal Medicine - CN: Exam - Constitutional Vitals: Temp Pulse Resp BP Pulse Ox 98.9 F 90 14 139/90 100 06/19/17 09:31 06/19/17 09:31 06/19/17 09:31 06/19/17 09:31 06/19/17 09:31 I have examined this patient at the bedside. Examination of her head, eyes, ears, nose, cervical area and oral cavity is within normal limits. Examination of lungs did not reveal any abnormal breath sounds. Examination of heart within normal limits including first and second heart sound. I did not hear any gallop, murmur, thrill. Examination of the abdomen revealed occasional pain in her epigastric region. Objective examination of the central nervous system is within the normal limit. I did not reveal any scar, draining sinuses or any dilated veins in her upper extremity. General appearance IM: Present: mild distress, A&O X 3, pleasant, answers questions appropriately - Eye Eye exam: Present: PERRL - ENT ENT exam: Present: normal exam - Respiratory Respiratory exam: Present: CTAB Internal Medicine - CN: Reslt - Labs CBC & Chem 7: 06/19/17 00:05 06/19/17 00:05 Labs: Reviewed Consult Discharge Plan - Plan Referrals: NONE,PCP [Primary Care Provider] -
[2017-06-19] MEDS ORDERED: BUPRENORPHINE HCL SL SCH (11:15)
[2017-06-19] MEDS: D5% in 0.9% NACL 1,000 ML IVC SCH ×2 (11:16→19:16)
[2017-06-19] MEDS ORDERED: Metoclopramide 10 MG/2 ML VIAL IVP SCH (12:00)
[2017-06-19] MEDS: Potassium Chloride Elixir 20 MEQ/15 ML UDC PO SCH (21:32)
[2017-06-20] MEDS: *HR* Promethazine 25 MG/ML VIAL IVP PRN ×4 (03:59→22:12)
[2017-06-20] MEDS: D5% in 0.9% NACL 1,000 ML IVC SCH ×3 (04:02→22:18)
[2017-06-20 04:52] LABS: Basophils % 0.2 %; Eosinophils # 0.1 K/mcL (0.0-0.6); Eosinophils % 1.6 %; Hematocrit 34.4 % (35.3-44.9); Hemoglobin 11.4 g/dL (11.5-15.4); Immature Granulocytes % 0.7 % (0-4); Lymphocytes # 3.1 K/mcL (0.6-4.6); Lymphocytes % 37.5 %; Mean Corpuscular HGB Conc 33.1 g/dL (31.6-35.5); Mean Corpuscular Hemoglobin 29.2 pg (28.0-33.3); Mean Platelet Volume 9.9 fL (9.4-12.4); Monocytes # 0.7 K/mcL (0.0-1.3); Monocytes % 8.6 %; Neutrophils # 4.2 K/mcL (1.6-8.9); Platelet Count 237 K/mcL (140-400); Red Blood Count 3.91 M/mcL (3.82-4.97); Red Cell Distribution Width 13.4 % (11.5-14.5); Segmented Neutrophils % 51.4 %
[2017-06-20 05:06] LABS: Alanine Aminotransferase 22 Units/L (7-52); Albumin 3.8 g/dL (3.5-5.7); Albumin/Globulin Ratio 1.3 (1.1-2.2); Alkaline Phosphatase 70 Units/L (34-104); Aspartate Amino Transferase 15 Units/L (13-39); BUN/Creatinine Ratio 9 (6-26); Bilirubin,Total 0.4 mg/dL (0.3-1.0); Blood Urea Nitrogen 3 mg/dL (6-20); Calcium 8.5 mg/dL (8.6-10.3); Carbon Dioxide 22 mEq/L (23-29); Chloride 110 mEq/L (98-107); Glucose 92 mg/dL (70-105); Osmolality,Calculated 280 (280-300); Potassium 2.9 mEq/L (3.5-5.1); Sodium 137 mEq/L (136-145); Total Protein 6.8 g/dL (6.4-8.9); eGFR For African Americans > 60 (> 60); eGFR For Non-African Americans > 60 (> 60)
[2017-06-20] MEDS: Metoclopramide 10 MG/2 ML VIAL IVP SCH ×3 (05:16→18:03)
[2017-06-20] MEDS: Ondansetron 4 MG/2 ML VIAL IVP PRN ×3 (07:54→20:53)
[2017-06-20] MEDS: Famotidine 20 MG/2 ML VIAL IVP SCH ×2 (08:12→17:59)
[2017-06-20] MEDS: Potassium Chloride Elixir 20 MEQ/15 ML UDC PO SCH ×2 (08:29→20:56)
--- NOTE | 2017-06-20 10:21 | Internal Med Progress Note ---
<Jose Wild - Last Filed: 06/20/17 10:49> Date of Encounter: 06/20/17 Time of Encounter: 10:21 - Assessment and plan (1) Hypokalemia Current Visit: Yes Status: Acute Assessment and plan: K+ 2.9 being replaced. also replaced Magnesium. (2) Nausea and vomiting during Current Visit: Yes Status: Acute Assessment and plan: continues to have emesis 400cc continue IVF due to poor oral intake on phenergan, reglan, benadryl, scopolamine reports burning chest pain and thorat pain. on pepcid. may start carafate for relief. (3) Drug withdrawal Current Visit: Yes Status: Acute Assessment and plan: likely cause of her tachycardia, N/V managed by OBGYN Qualifiers: Substance type: opioid Qualified Code(s): F11.23 - Opioid dependence with withdrawal - Subjective Interval history: continues to have N/V. 400cc emesis this morning described as chunks by nurse without blood. patient reports burning pain mid chest and thorat. - Constitutional Vitals: Temp Pulse Resp BP Pulse Ox 98.3 F 92 16 157/97 98 06/20/17 09:00 06/20/17 09:00 06/20/17 09:00 06/20/17 09:00 06/20/17 09:00 General appearance: Present: mild distress, A&O X 3, pleasant, answers questions appropriately - Head Head exam: Present: atraumatic, normocephalic - Eye Eye exam: Present: PERRL, conjuntiva pink, sclera anicteric - Neck Neck exam general surgery: Present: supple, trachea midline. Absent: lymphadenopathy - Respiratory Respiratory exam: Present: CTAB. Absent: accessory muscle use, rales, rhonchi, wheezes - Cardiovascular Cardiovascular exam: Present: +S1, +S2, tachycardia. Absent: diastolic murmur, gallop, rubs, systolic murmur - GI/Abdominal GI/Abdominal exam: Present: normal bowel sounds, soft, no peritoneal signs. Absent: distended, tenderness - Extremities Exam Extremities exam: Present: warm, radial pulses palpable and symmetrical. Absent : calf tenderness, cyanotic, pedal edema - Neurological Exam Neurological exam: Present: CN II-XII intact, oriented X3, no focal deficits. Absent: pronater drift, facial droop, speech deficit - Skin Skin exam: Present: dry, intact Internal Medicine: Result - Labs CBC & Chem 7: 06/20/17 04:36 06/20/17 04:36 Labs: Short CBC 06/20/17 Range/Units 04:36 WBC 8.3 (4.3-11.1) K/mcL Hgb 11.4 L (11.5-15.4) g/dL Hct 34.4 L (35.3-44.9) % Plt Count 237 (140-400) K/mcL Neutrophils # 4.2 (1.6-8.9) K/mcL BMP 06/20/17 04:36 Sodium 137 Potassium 2.9 L Chloride 110 H Carbon Dioxide 22 L BUN 3 L Creatinine 0.35 L Glucose 92 Calcium 8.5 L Liver Function 06/20/17 Range/Units 04:36 Total Bilirubin 0.4 (0.3-1.0) mg/dL AST 15 (13-39) Units/L ALT 22 (7-52) Units/L Alkaline Phosphatase 70 (34-104) Units/L Albumin 3.8 (3.5-5.7) g/dL Consult Discharge Plan - Plan Referrals: NONE,PCP [Primary Care Provider] - <Fred Ceballos T - Last Filed: 06/20/17 13:20> Date of Encounter: 06/20/17 - Constitutional Vitals: Temp Pulse Resp BP Pulse Ox 98.8 F 89 19 147/90 98 06/20/17 11:35 06/20/17 11:35 06/20/17 11:35 06/20/17 11:35 06/20/17 11:35 Internal Medicine: Result - Labs CBC & Chem 7: 06/20/17 04:36 06/20/17 04:36 Labs: Short CBC 06/20/17 Range/Units 04:36 WBC 8.3 (4.3-11.1) K/mcL Hgb 11.4 L (11.5-15.4) g/dL Hct 34.4 L (35.3-44.9) % Plt Count 237 (140-400) K/mcL Neutrophils # 4.2 (1.6-8.9) K/mcL BMP 06/20/17 04:36 Sodium 137 Potassium 2.9 L Chloride 110 H Carbon Dioxide 22 L BUN 3 L Creatinine 0.35 L Glucose 92 Calcium 8.5 L Liver Function 06/20/17 Range/Units 04:36 Total Bilirubin 0.4 (0.3-1.0) mg/dL AST 15 (13-39) Units/L ALT 22 (7-52) Units/L Alkaline Phosphatase 70 (34-104) Units/L Albumin 3.8 (3.5-5.7) g/dL - Attending Attestation I examined this patient and my medical decision-making was reviewed with the Resident Physician on 06/20/17. I agree with the documented findings, disposition and treatment plan as described except to the extent set forth below. Seen and examined at the bedside 27 F with opiate dependence and 18 weeks + , admitted to OBGYN for hyperemesis gravidarum She is still nauseous but not vomiting She developed multiple eletcrolyte abnormalities due to vomiting She states she is getting her opiates but could not get the phenergan due to insurance issues Abdomen examination, uterus, appropriate size.Edema. Heart sounds S1 and S2. Labs and imaging reviewed: Potassium 2.9, hyponatremia is improving, Mag low normal toxicology is negative influenza is negative urinalysis shows starvation ketonuria. Plan : Give 2 g of magnesium, 40 mg of potassium IV, continue oral potassium replacement as well. Started to monitor chemistry. We will continue to follow. Management of emesis and cyesis as in OB REst as in resident physician's documentation
--- NOTE | 2017-06-20 15:59 | OB/GYN Progress Note ---
Date of Encounter: 06/20/17 Time of Encounter: 10:00 - Assessment and Plan (1) Nausea and vomiting during Current Visit: Yes Status: Acute Continue zofran, reglan, phenergan, and scopolamine patches Was unable to get scripts filled from last discharge due to insurance coverage - prior auth unsuccessful for scopalamine patches, now trying to prior auth for home health subcutaneous zofran Continue IV fluids - encourage po fluid intake electrolyte replacement per IM (2) Drug withdrawal Current Visit: Yes Status: Acute Pt takes Subutex 8mg 1.5 tabs per day - reports not being able to take all of her doses over the past few days Pill count inaccurate upon admission - 2.5 tabs, when she should have 3 tabs Pt had one 8mg tablet remaining for today. Will take home med. Both rapid urine UDS and full UDS collected on admission Qualifiers: Substance type: opioid Qualified Code(s): F11.23 - Opioid dependence with withdrawal (3) Tobacco abuse Current Visit: Yes Status: Chronic (4) Hypokalemia Current Visit: Yes Status: Acute K 3.2 - Consult hospitalist for electrolyte management Will check Mag Subjective - Subjective Interval history: Pt continues to report nausea and vomiting. No diarrhea today. She reports pain all over. Yesterday she took 8mg of her subutex but then refused the rest of her ordered dose because she was nauseated. She reports burning pain from her upper abdomen to her throat. Antepartum ROS: no loss of fluid, no vaginal bleeding, no contractions Objective - Vital Signs Vital Signs: Vital Signs Temp Pulse Resp BP Pulse Ox 06/20/17 15:40 98.1 F 86 12 141/100 98 06/20/17 11:35 98.8 F 89 19 147/90 98 06/20/17 09:00 98.3 F 92 16 157/97 98 06/20/17 03:20 97.9 F 89 16 105/66 99 06/19/17 19:40 98.6 F 108 14 114/86 98 06/19/17 15:58 99.4 F 99 14 128/88 95 Intake and Output 06/19/17 06/20/17 06/20/17 23:59 07:59 15:59 Intake Total 1000 / 1000 1000 / 1000 1300 / 1300 Output Total 250 / 250 1200 / 1200 2900 / 2900 Balance 750 / 750 -200 / -200 -1600 / -1600 Intake: IV Fluids 1000 / 1000 1000 / 1000 1300 / 1300 D5% And 0.9% Nacl 1000 Ml 1,000 1000 / 1000 1000 / 1000 1000 / 1000 ML @ 125 mls/hr IVC .Q8H [facility] Rx#:[id number] Potassium Chloride 10 mEq/100mL 300 / 300 10 meq In 100 ml @ 100 mls/hr IVPB Q1H [facility] Rx#:[id number] Output: Urine 800 / 800 2700 / 2700 Emesis 250 / 250 400 / 400 200 / 200 Other: Weight 71.259 kg Patient Weight 06/20/17 23:59 Weight 71.259 kg - Exam FHR: auscultation normal FHR comments: 147 BPM Auscultation: bilateral: normal Abdomen: Present: soft. Absent: tenderness Uterus: Absent: tenderness - Labs Labs: Abnormal lab results Hgb 11.4 g/dL (11.5-15.4) L 06/20/17 04:36 Hct 34.4 % (35.3-44.9) L 06/20/17 04:36 Potassium 2.9 mEq/L (3.5-5.1) L 06/20/17 04:36 Chloride 110 mEq/L (98-107) H 06/20/17 04:36 Carbon Dioxide 22 mEq/L (23-29) L 06/20/17 04:36 BUN 3 mg/dL (6-20) L 06/20/17 04:36 Creatinine 0.35 mg/dL (0.60-1.20) L 06/20/17 04:36 Calcium 8.5 mg/dL (8.6-10.3) L 06/20/17 04:36 Beta-Hydroxybutyric Acd 0.85 mmol/L (0.02-0.27) H 06/19/17 00:05 Urine Clarity Cloudy (Clear) A 06/19/17 01:10 Urine Ketones >=160 mg/dL (Negative) H 06/19/17 01:10 Urine Microscopic RBC 3-5 per hpf (0-3) H 06/19/17 01:10 Ur Squamous Epith Cells Many per lpf (None-Few) H 06/19/17 01:10
[2017-06-21] MEDS: Metoclopramide 10 MG/2 ML VIAL IVP SCH ×4 (00:30→18:36)
[2017-06-21] MEDS: Ondansetron 4 MG/2 ML VIAL IVP PRN ×4 (03:06→21:21)
[2017-06-21] MEDS: *HR* Promethazine 25 MG/ML VIAL IVP PRN ×4 (04:30→23:16)
[2017-06-21 04:47] LABS: Basophils % 0.3 %; Eosinophils % 0.3 %; Hematocrit 30.6 % (35.3-44.9); Hemoglobin 10.5 g/dL (11.5-15.4); Immature Granulocytes % 1.2 % (0-4); Lymphocytes # 2.4 K/mcL (0.6-4.6); Lymphocytes % 23.3 %; Mean Corpuscular HGB Conc 34.3 g/dL (31.6-35.5); Mean Corpuscular Hemoglobin 29.2 pg (28.0-33.3); Mean Corpuscular Volume 85.2 fL (83.0-100.0); Mean Platelet Volume 9.7 fL (9.4-12.4); Monocytes # 0.7 K/mcL (0.0-1.3); Monocytes % 7.2 %; Neutrophils # 6.9 K/mcL (1.6-8.9); Platelet Count 265 K/mcL (140-400); Red Blood Count 3.59 M/mcL (3.82-4.97); Red Cell Distribution Width 12.9 % (11.5-14.5); Segmented Neutrophils % 67.7 %
[2017-06-21 05:44] LABS: Alanine Aminotransferase 58 Units/L (7-52); Albumin 3.6 g/dL (3.5-5.7); Albumin/Globulin Ratio 1.2 (1.1-2.2); Alkaline Phosphatase 65 Units/L (34-104); Aspartate Amino Transferase 52 Units/L (13-39); Bilirubin,Total 0.5 mg/dL (0.3-1.0); Blood Urea Nitrogen < 2 mg/dL (6-20); Calcium 8.3 mg/dL (8.6-10.3); Carbon Dioxide 22 mEq/L (23-29); Chloride 107 mEq/L (98-107); Globulin 2.9 g/dL (2.4-3.5); Glucose 108 mg/dL (70-105); Sodium 137 mEq/L (136-145); Total Protein 6.5 g/dL (6.4-8.9); eGFR For African Americans > 60 (> 60); eGFR For Non-African Americans > 60 (> 60)
[2017-06-21] MEDS: D5% in 0.9% NACL 1,000 ML IVC SCH (06:17)
[2017-06-21] MEDS: Famotidine 20 MG/2 ML VIAL IVP SCH ×2 (06:17→18:32)
--- NOTE | 2017-06-21 09:58 | Internal Med Progress Note ---
<Jose Wild - Last Filed: 06/21/17 09:55> Date of Encounter: 06/21/17 Time of Encounter: 09:55 - Assessment and plan (1) Hypokalemia Current Visit: Yes Status: Acute Assessment and plan: K+ 3.0 being replaced. (2) Nausea and vomiting during Current Visit: Yes Status: Acute Assessment and plan: continues to have emesis 400cc continue IVF due to poor oral intake on phenergan, reglan, benadryl, scopolamine reports burning chest pain and thorat pain. on pepcid. carafate provided relief for patient. (3) Drug withdrawal Current Visit: Yes Status: Acute Assessment and plan: likely cause of her tachycardia, N/V managed by OBGYN Qualifiers: Substance type: opioid Qualified Code(s): F11.23 - Opioid dependence with withdrawal - Subjective Interval history: continues to have N/V. 925 emesis this morning. According to patients nurse: Patients last dose of subutex was brought to the room by nurse yesterday at which time patient was havin gvomiting. Nurse left subutex in the room and went out to get supplies to clean up patient and by the time she came back the subutex was gone. - Constitutional Vitals: Temp Pulse Resp BP Pulse Ox 98.5 F 93 16 137/97 96 06/21/17 04:00 06/21/17 04:00 06/21/17 04:00 06/21/17 04:00 06/21/17 04:00 General appearance: Present: mild distress, A&O X 3, pleasant, answers questions appropriately - Other Additional findings: General appearance: Present: mild distress, A&O X 3, pleasant, answers questions appropriately - Head Head exam: Present: atraumatic, normocephalic - Eye Eye exam: Present: PERRL, conjuntiva pink, sclera anicteric - Neck Neck exam general surgery: Present: supple, trachea midline. Absent: lymphadenopathy - Respiratory Respiratory exam: Present: CTAB. Absent: accessory muscle use, rales, rhonchi, wheezes - Cardiovascular Cardiovascular exam: Present: +S1, +S2, NSR Absent: diastolic murmur, gallop, rubs, systolic murmur - GI/Abdominal GI/Abdominal exam: Present: normal bowel sounds, soft, no peritoneal signs. Absent: distended, tenderness - Extremities Exam Extremities exam: Present: warm, radial pulses palpable and symmetrical. Absent : calf tenderness, cyanotic, pedal edema - Neurological Exam Neurological exam: Present: CN II-XII intact, oriented X3, no focal deficits. Absent: pronater drift, facial droop, speech deficit - Skin Skin exam: Present: dry, intact Internal Medicine: Result - Labs CBC & Chem 7: 06/21/17 04:10 06/21/17 04:10 Labs: Short CBC 06/21/17 Range/Units 04:10 WBC 10.1 (4.3-11.1) K/mcL Hgb 10.5 L (11.5-15.4) g/dL Hct 30.6 L (35.3-44.9) % Plt Count 265 (140-400) K/mcL Neutrophils # 6.9 (1.6-8.9) K/mcL BMP 06/20/17 06/21/17 20:59 04:10 Sodium 137 Potassium 3.0 L 3.0 L Chloride 107 Carbon Dioxide 22 L BUN < 2 L Creatinine 0.27 L Glucose 108 H Calcium 8.3 L Liver Function 06/21/17 Range/Units 04:10 Total Bilirubin 0.5 (0.3-1.0) mg/dL AST 52 H (13-39) Units/L ALT 58 H (7-52) Units/L Alkaline Phosphatase 65 (34-104) Units/L Albumin 3.6 (3.5-5.7) g/dL Consult Discharge Plan - Plan Referrals: NONE,PCP [Primary Care Provider] - <Fred Ceballos - Last Filed: 06/21/17 16:00> Date of Encounter: 06/21/17 - Constitutional Vitals: Temp Pulse Resp BP Pulse Ox 99.1 F 85 16 150/94 96 06/21/17 10:31 06/21/17 10:31 06/21/17 10:31 06/21/17 10:31 06/21/17 04:00 Internal Medicine: Result - Labs CBC & Chem 7: 06/21/17 04:10 06/21/17 04:10 Labs: Short CBC 06/21/17 Range/Units 04:10 WBC 10.1 (4.3-11.1) K/mcL Hgb 10.5 L (11.5-15.4) g/dL Hct 30.6 L (35.3-44.9) % Plt Count 265 (140-400) K/mcL Neutrophils # 6.9 (1.6-8.9) K/mcL BMP 06/20/17 06/21/17 20:59 04:10 Sodium 137 Potassium 3.0 L 3.0 L Chloride 107 Carbon Dioxide 22 L BUN < 2 L Creatinine 0.27 L Glucose 108 H Calcium 8.3 L Liver Function 06/21/17 Range/Units 04:10 Total Bilirubin 0.5 (0.3-1.0) mg/dL AST 52 H (13-39) Units/L ALT 58 H (7-52) Units/L Alkaline Phosphatase 65 (34-104) Units/L Albumin 3.6 (3.5-5.7) g/dL - Attending Attestation I examined this patient and my medical decision-making was reviewed with the Resident Physician on 06/21/17. I agree with the documented findings, disposition and treatment plan as described except to the extent set forth below. Seen 27 F with opiate dependence and 18 weeks + , admitted to [facility] for hyperemesis gravidarum Medicine was consulted for management of electrolyte abnormalities, specifically hypokalemia. Patient continues to have nausea and vomiting, with poor oral intake. This is being managed by her primary team [employer]. Her renal function continues to remain normal. Patient is having hypokalemia due to GI loss from vomiting. We will recommend that the primary team continues to manage hypokalemia by giving IV potassium replacements with goal potassium at least 3.6. Medicine we will be signing off this case, kindly reconsult when necessary. Rest as in resident physician's documentation
[2017-06-21] MEDS ORDERED: FOLIC ACID IVC ONE (12:12)
[2017-06-21] MEDS ORDERED: [UNRECOGNIZED DRUG - OTHER] IVC ONE (12:12)
[2017-06-21] MEDS ORDERED: VITAMIN K IVC ONE (12:12)
[2017-06-21] MEDS ORDERED: MVI IVC ONE (12:12)
[2017-06-21] MEDS ORDERED: PYRIDOXINE IVC ONE (12:12)
[2017-06-21] MEDS ORDERED: Thiamine (B-1) 100 MG in D5% in Water 50 ML IVPB SCH (12:15)
[2017-06-21] MEDS: Nicotine 14 MG PATCH.TD24 TD SCH (12:22)
[2017-06-21] MEDS ORDERED: BUPRENORPHINE HCL SL SCH (13:30)
--- NOTE | 2017-06-21 14:02 | OB/GYN Progress Note ---
Date of Encounter: 06/21/17 Time of Encounter: 13:57 - Assessment and Plan (1) Hyperemesis arising during Current Visit: Yes Status: Acute NPO with mouth swabs available for oral comfort Medications as ordered per ACOGs nausea and vomiting protocol Start solumedrol - IV x 3 days and then change to PO and taper down per ACOG recommendations Consider transfer to higher level of care if vomiting not relieved by AM. POC per consult with Dr Akins (2) Dehydration Current Visit: Yes Status: Acute Rehydration with continuous MVI diluted in fluids (3) Drug withdrawal Current Visit: Yes Status: Acute Patient's subutex from group was dispensed today Subutex 8mg in AM and 4mg in PM per Dr Akins's orders. Patient to receive AM dose now due to not having it this AM due to missing home doses and group not until this afternoon. Qualifiers: Substance type: opioid Qualified Code(s): F11.23 - Opioid dependence with withdrawal (4) Electrolyte abnormality Current Visit: Yes Status: Acute Consult to hospitalist Replacing potassium with k riders Started MVI with additional additives per ACOGs recommendations (5) Tobacco abuse Current Visit: Yes Status: Chronic Patient has IV access. Start nicotine patch (6) 18 weeks gestation of Current Visit: Yes Status: Acute Continue FHTs Q shift Subjective - Subjective Principal diagnosis: hyperermesis gravidarum and hypokalemia Interval history: Ms Callahan continues to complain of unrelieved nausea and vomiting today. She also complains that her skin is crawling, her legs are shaking, and that she is "going crazy". When asked when the last time she had her subutex, she states it was over a day ago. She states she wants me to help her and that she would do anything to make the "person inside of her trying to get out out". She is able to tell me what day it is, where she is, and what her name is. She states that she thinks she may be going through withdraw and she is asking for more benadryl. I explained to the patient that she may have it as it is ordered. Antepartum ROS: no loss of fluid, no vaginal bleeding, no contractions Objective - Vital Signs Vital Signs: Vital Signs Temp Pulse Resp BP Pulse Ox 06/21/17 10:31 99.1 F 85 16 150/94 06/21/17 04:00 98.5 F 93 16 137/97 96 06/21/17 00:15 98.8 F 88 14 145/91 99 06/20/17 19:45 98.4 F 84 14 126/84 98 06/20/17 15:40 98.1 F 86 12 141/100 98 Intake and Output 06/20/17 06/21/17 06/21/17 23:59 07:59 15:59 Intake Total 1000 / 1000 1000 / 1000 300 / 300 Output Total 1200 / 1200 1925 / 1925 Balance 1000 / 1000 -200 / -200 -1625 / -1625 Intake: IV Fluids 1000 / 1000 1000 / 1000 300 / 300 D5% And 0.9% Nacl 1000 Ml 1,000 1000 / 1000 1000 / 1000 ML @ 125 mls/hr IVC .Q8H [facility] Rx#:[id number] Potassium Chloride 10 mEq/100mL 300 / 300 10 meq In 100 ml @ 100 mls/hr IVPB Q1H [facility] Rx#:[id number] Output: Urine 1200 / 1200 1000 / 1000 Emesis 925 / 925 Other: Stool Consistency loose liquid # Bowel Movements 1 Weight 69.082 kg Patient Weight 06/21/17 23:59 Weight 69.082 kg - Exam FHR comments: FHTs 152 this AM Auscultation: bilateral: normal Abdomen: Present: normal appearance, soft, gravid Uterus: Present: normal Comments: Ms Callahan was sleeping in her bed until I awoke her for her exam. She begins to writhe in the bed with c/o of crawling skin, restless legs, and hand clenching. She also pulls at her hair. - Labs Labs: Abnormal lab results RBC 3.59 M/mcL (3.82-4.97) L 06/21/17 04:10 Hgb 10.5 g/dL (11.5-15.4) L 06/21/17 04:10 Hct 30.6 % (35.3-44.9) L 06/21/17 04:10 Potassium 3.0 mEq/L (3.5-5.1) L 06/21/17 04:10 Carbon Dioxide 22 mEq/L (23-29) L 06/21/17 04:10 BUN < 2 mg/dL (6-20) L 06/21/17 04:10 Creatinine 0.27 mg/dL (0.60-1.20) L 06/21/17 04:10 Glucose 108 mg/dL (70-105) H 06/21/17 04:10 Calcium 8.3 mg/dL (8.6-10.3) L 06/21/17 04:10 AST 52 Units/L (13-39) H 06/21/17 04:10 ALT 58 Units/L (7-52) H 06/21/17 04:10 Beta-Hydroxybutyric Acd 0.85 mmol/L (0.02-0.27) H 06/19/17 00:05 Urine Clarity Cloudy (Clear) A 06/19/17 01:10 Urine Ketones >=160 mg/dL (Negative) H 06/19/17 01:10 Urine Microscopic RBC 3-5 per hpf (0-3) H 06/19/17 01:10 Ur Squamous Epith Cells Many per lpf (None-Few) H 06/19/17 01:10
[2017-06-21] MEDS: MethylPREDNISolone 40 MG/ML VIAL IVP SCH (14:07)
[2017-06-21] MEDS: Patient Taking Own Medication 1 EACH PO SCH ×2 (14:17→22:35)
[2017-06-21] MEDS: FOLIC ACID IVC SCH (23:42)
[2017-06-21] MEDS: SODIUM CHLORIDE 0.9% IVC SCH (23:42)
[2017-06-21] MEDS: PYRIDOXINE IVC SCH (23:42)
[2017-06-22] MEDS: MethylPREDNISolone 40 MG/ML VIAL IVP SCH ×2 (01:03→10:41)
[2017-06-22] MEDS: Metoclopramide 10 MG/2 ML VIAL IVP SCH ×3 (01:04→11:51)
[2017-06-22] MEDS: *HR* Promethazine 25 MG/ML VIAL IVP PRN ×2 (05:41→11:51)
[2017-06-22] MEDS: PYRIDOXINE IVC SCH (05:42)
[2017-06-22] MEDS: FOLIC ACID IVC SCH (05:42)
[2017-06-22] MEDS: SODIUM CHLORIDE 0.9% IVC SCH (05:42)
[2017-06-22] MEDS: Famotidine 20 MG/2 ML VIAL IVP SCH (06:58)
[2017-06-22 08:25] LABS: Eosinophils # 0.2 K/mcL (0.0-0.6); Hemoglobin 9.8 g/dL (11.5-15.4); Mean Corpuscular HGB Conc 33.8 g/dL (31.6-35.5); Mean Corpuscular Hemoglobin 28.9 pg (28.0-33.3); Mean Corpuscular Volume 85.5 fL (83.0-100.0); Mean Platelet Volume 9.4 fL (9.4-12.4); Platelet Count 233 K/mcL (140-400); Red Blood Count 3.39 M/mcL (3.82-4.97)
[2017-06-22 08:35] VITALS: BP 110/75
[2017-06-22 08:51] LABS: Basophils # 0.2 K/mcL (0.0-0.2); Lymphocytes # 3.2 K/mcL (0.6-4.6); Monocytes # 0.5 K/mcL (0.0-1.3); Neutrophils # 7.3 K/mcL (1.6-8.9)
[2017-06-22 08:52] LABS: Platelet Estimate Normal (Normal)
[2017-06-22 08:54] LABS: Alanine Aminotransferase 156 Units/L (7-52); Albumin 3.4 g/dL (3.5-5.7); Albumin/Globulin Ratio 1.4 (1.1-2.2); Alkaline Phosphatase 53 Units/L (34-104); Aspartate Amino Transferase 106 Units/L (13-39); BUN/Creatinine Ratio 21 (6-26); Bilirubin,Total 0.5 mg/dL (0.3-1.0); Blood Urea Nitrogen 6 mg/dL (6-20); Calcium 8.1 mg/dL (8.6-10.3); Carbon Dioxide 21 mEq/L (23-29); Chloride 106 mEq/L (98-107); Globulin 2.4 g/dL (2.4-3.5); Glucose 91 mg/dL (70-105); Osmolality,Calculated 277 (280-300); Potassium 3.5 mEq/L (3.5-5.1); Sodium 135 mEq/L (136-145); Total Protein 5.8 g/dL (6.4-8.9); eGFR For African Americans > 60 (> 60); eGFR For Non-African Americans > 60 (> 60)
[2017-06-22] MEDS ORDERED: SODIUM CHLORIDE 0.9% IVPB SCH (09:00)
[2017-06-22] MEDS ORDERED: THIAMINE IVPB SCH (09:00)
[2017-06-22] MEDS ORDERED: VITAMIN K IVPB SCH (09:00)
[2017-06-22] MEDS ORDERED: SUBUTEX 8MG PO SCH (09:00)
[2017-06-22] MEDS ORDERED: MVI IVPB SCH (09:00)
--- NOTE | 2017-06-22 09:58 | OB/GYN Progress Note ---
Date of Encounter: 06/22/17 Time of Encounter: 09:56 - Assessment and Plan (1) Abnormal LFTs Current Visit: Yes Status: Acute The patient has had an acute increase in her LFTs over the last 48 hours. I have contacted Dr. Nam of the hospitals group about this. They have been following jointly about this patient but signed off yesterday. The patient reports no Tylenol use. She reports not taking any medications other than what has been prescribed. She has had hepatitis B and C recently tested and all have been normal/negative. Awaiting hospitalist input. This can be managed on an outpatient basis I feel that it is okay to discharge the patient (2) 18 weeks gestation of Current Visit: Yes Status: Acute heart tones stable. Patient asymptomatic with regards to the uterus and fetus (3) Dehydration Current Visit: Yes Status: Acute Resolved with IV fluids. Patient currently tolerating oral. P-lock challenge (4) Drug withdrawal Current Visit: Yes Status: Acute Patient being monitored on Subutex Qualifiers: Substance type: opioid Qualified Code(s): F11.23 - Opioid dependence with withdrawal (5) Electrolyte abnormality Current Visit: Yes Status: Acute The patient is being supplemented and majority of the abnormalities have resolved and the patient is stable (6) Hypokalemia Current Visit: Yes Status: Acute Resolve with supplements and improvement of nausea and vomiting Subjective - Subjective Principal diagnosis: Hosp day 4 Interval history: The patient reports improvement overnight and her nausea and vomiting. She thinks that the steroids are helping. She has a new scope patch placed this morning at 4 AM. She is hoping to be discharged home today. She denies any vaginal bleeding or uterine cramping. Objective - Vital Signs Vital Signs: Vital Signs Temp Pulse Resp BP Pulse Ox 06/22/17 07:30 97.7 F 94 16 110/75 06/22/17 04:25 98.2 F 82 16 114/75 97 06/22/17 01:00 98.4 F 90 16 113/78 96 06/21/17 19:47 98.0 F 91 16 110/79 96 06/21/17 10:31 99.1 F 85 16 150/94 Intake and Output 06/21/17 06/22/17 06/22/17 23:59 07:59 15:59 Intake Total 1000.37 / 1000.37 Balance 1000.37 / 1000.37 Intake: IV Fluids 1000.37 / 1000.37 Folvite 0.6 MG Vitamin B-6 25 1000.37 / 1000.37 MG In 0.9 % Sodium Chloride 1, 000 ML @ 167 mls/hr IVC .Q6H [facility] Rx#:[id number] Vitamin B-1 100 MG In Dextrose 5% 50 ML @ 50 mls/hr IVPB DAILY [facility] Rx#:[id number] Other: Weight 69.082 kg Patient Weight 06/22/17 23:59 Weight 69.082 kg - Exam Auscultation: bilateral: normal Abdomen: Present: soft, gravid, other (Normal bowel sounds). Absent: tenderness (No Mcmahon sign, no guarding or rigidity in the upper abdomen) Comments: CV regular rate and rhythm - Labs Labs: Abnormal lab results WBC 11.4 K/mcL (4.3-11.1) H 06/22/17 08:17 RBC 3.39 M/mcL (3.82-4.97) L 06/22/17 08:17 Hgb 9.8 g/dL (11.5-15.4) L 06/22/17 08:17 Hct 29.0 % (35.3-44.9) L 06/22/17 08:17 Sodium 135 mEq/L (136-145) L 06/22/17 08:17 Carbon Dioxide 21 mEq/L (23-29) L 06/22/17 08:17 Creatinine 0.28 mg/dL (0.60-1.20) L 06/22/17 08:17 Calculated Osmolality 277 (280-300) L 06/22/17 08:17 Calcium 8.1 mg/dL (8.6-10.3) L 06/22/17 08:17 AST 106 Units/L (13-39) H 06/22/17 08:17 ALT 156 Units/L (7-52) H 06/22/17 08:17 Serum Total Protein 5.8 g/dL (6.4-8.9) L 06/22/17 08:17 Albumin 3.4 g/dL (3.5-5.7) L 06/22/17 08:17 Beta-Hydroxybutyric Acd 0.85 mmol/L (0.02-0.27) H 06/19/17 00:05 Urine Clarity Cloudy (Clear) A 06/19/17 01:10 Urine Ketones >=160 mg/dL (Negative) H 06/19/17 01:10 Urine Microscopic RBC 3-5 per hpf (0-3) H 06/19/17 01:10 Ur Squamous Epith Cells Many per lpf (None-Few) H 06/19/17 01:10 - Allied health notes Allied health notes reviewed: nursing
[2017-06-22] MEDS: Nicotine 14 MG PATCH.TD24 TD SCH (10:41)
--- NOTE | 2017-06-22 15:11 | Discharge Summary ---
Date of Encounter: 06/22/17 Time of Encounter: 15:09 - Discharge Diagnosis (1) Elevated liver enzymes Priority: Secondary Status: Acute Comments: Per hospitalist repeat labs outpatient due to history of elevated in past with returning to normal values Discussed patient with Dr. Contreras who reports patient may be discharged home with labs to be repeated at next OB appointment (2) 18 weeks gestation of Priority: Secondary Status: Acute Comments: admitted for hyperemesis IV hydration electrolyte replacement (3) Hyperemesis arising during Priority: Primary Status: Acute Comments: Patient doing better with steroids will send home with taper dose home with Carafate - Discharge Medications Prescriptions: Promethazine [Phenergan] 25 mg PO Q6HR #60 tablet Sucralfate [Carafate] 1 gm PO QIDAC 7 Days #280 oral.susp Home Medications: Buprenorphine HCl/Naloxone HCl [Suboxone 8 mg-2 mg Sl Film] 1 each SL DAILY 10/25 [History] Vit #116/Iron/FA/Dha [ Formula-Dha Softgel] 1 each PO DAILY 08/26 [History] Metoclopramide [Reglan] 10 mg PO Q6HR #30 tablet 06/14/17 [Rx] Ondansetron ODT [Zofran ODT] 4 mg SL Q6HR #60 tab.rapdis 06/14/17 [Rx] Scopolamine Patch [Transderm-Scop] 1.5 mg TD Q72H #4 patch.td72 06/14/17 [Rx] DiphenhydraMINE [Benadryl] 25 mg PO Q8HR #30 capsule 06/22/17 [Rx] Patient Taking Own Medication 0.5 each PO HS each 06/22/17 [Rx] Patient Taking Own Medication 1 each PO QAM each 06/22/17 [Rx] Promethazine [Phenergan] 25 mg PO Q6HR #60 tablet 06/22/17 [Rx] Sucralfate [Carafate] 1 gm PO QIDAC 7 Days #280 oral.susp 06/22/17 [Rx] Allergies/Adverse Reactions: 3 Allergy/AdvReac Type Severity Reaction Status Date / Time cephalexin [From Keflex] Allergy Rash Verified 04/10/17 22:37 Penicillins [PCN] Allergy Hives Verified 04/10/17 22:37 tramadol [From Ultram] Allergy Chest Pain Verified 04/10/17 22:37 Data Procedures and tests throughout hospitalization: Laboratory Tests 06/19/17 06/19/17 06/20/17 05:55 05:55 04:36 WBC 8.3 RBC 3.91 Hgb 11.4 L Hct 34.4 L MCV 88.0 MCH 29.2 MCHC 33.1 RDW 13.4 Plt Count 237 MPV 9.9 Immature Gran % 0.7 Seg Neutrophils % 51.4 Lymphocytes % 37.5 Monocytes % 8.6 Eosinophils % 1.6 Basophils % 0.2 Neutrophils # 4.2 Lymphocytes # 3.1 Monocytes # 0.7 Eosinophils # 0.1 Basophils # 0.0 Platelet Estimate Sodium Potassium Chloride Carbon Dioxide BUN Creatinine Est GFR ( Amer) Est GFR (Non-Af Amer) BUN/Creatinine Ratio Glucose Calculated Osmolality Calcium Total Bilirubin AST ALT Alkaline Phosphatase Serum Total Protein Albumin Globulin Albumin/Globulin Ratio Ur Pain Drugs Screen SEE BELOW Urine Opiates Screen Negative Ur Barbiturates Screen Negative Ur Phencyclidine Scrn Negative Ur Amphetamines Screen Negative U Benzodiazepines Scrn Negative Urine Cocaine Screen Negative U Marijuana (THC) Screen Negative 06/20/17 06/20/17 06/21/17 04:36 20:59 04:10 WBC 10.1 RBC 3.59 L Hgb 10.5 L Hct 30.6 L MCV 85.2 MCH 29.2 MCHC 34.3 RDW 12.9 Plt Count 265 MPV 9.7 Immature Gran % 1.2 Seg Neutrophils % 67.7 Lymphocytes % 23.3 Monocytes % 7.2 Eosinophils % 0.3 Basophils % 0.3 Neutrophils # 6.9 Lymphocytes # 2.4 Monocytes # 0.7 Eosinophils # 0.0 Basophils # 0.0 Platelet Estimate Sodium 137 Potassium 2.9 L 3.0 L Chloride 110 H Carbon Dioxide 22 L BUN 3 L Creatinine 0.35 L Est GFR ( Amer) > 60 Est GFR (Non-Af Amer) > 60 BUN/Creatinine Ratio 9 Glucose 92 Calculated Osmolality 280 Calcium 8.5 L Total Bilirubin 0.4 AST 15 ALT 22 Alkaline Phosphatase 70 Serum Total Protein 6.8 Albumin 3.8 Globulin 3.0 Albumin/Globulin Ratio 1.3 Ur Pain Drugs Screen Urine Opiates Screen Ur Barbiturates Screen Ur Phencyclidine Scrn Ur Amphetamines Screen U Benzodiazepines Scrn Urine Cocaine Screen U Marijuana (THC) Screen 06/21/17 06/22/17 06/22/17 04:10 08:17 08:17 WBC 11.4 H RBC 3.39 L Hgb 9.8 L Hct 29.0 L MCV 85.5 MCH 28.9 MCHC 33.8 RDW 13.0 Plt Count 233 MPV 9.4 Immature Gran % Seg Neutrophils % 64.0 Lymphocytes % 28.0 Monocytes % 4.0 Eosinophils % 2.0 Basophils % 2.0 Neutrophils # 7.3 Lymphocytes # 3.2 Monocytes # 0.5 Eosinophils # 0.2 Basophils # 0.2 Platelet Estimate Normal Sodium 137 135 L Potassium 3.0 L 3.5 Chloride 107 106 Carbon Dioxide 22 L 21 L BUN < 2 L 6 Creatinine 0.27 L 0.28 L Est GFR ( Amer) > 60 > 60 Est GFR (Non-Af Amer) > 60 > 60 BUN/Creatinine Ratio TNP 21 Glucose 108 H 91 Calculated Osmolality TNP 277 L Calcium 8.3 L 8.1 L Total Bilirubin 0.5 0.5 AST 52 H 106 H ALT 58 H 156 H Alkaline Phosphatase 65 53 Serum Total Protein 6.5 5.8 L Albumin 3.6 3.4 L Globulin 2.9 2.4 Albumin/Globulin Ratio 1.2 1.4 Ur Pain Drugs Screen Urine Opiates Screen Ur Barbiturates Screen Ur Phencyclidine Scrn Ur Amphetamines Screen U Benzodiazepines Scrn Urine Cocaine Screen U Marijuana (THC) Screen Labs on day of discharge: Labs from last 24 hours 06/22/17 06/22/17 08:17 08:17 WBC 11.4 H RBC 3.39 L Hgb 9.8 L Hct 29.0 L MCV 85.5 MCH 28.9 MCHC 33.8 RDW 13.0 Plt Count 233 MPV 9.4 Seg Neutrophils % 64.0 Lymphocytes % 28.0 Monocytes % 4.0 Eosinophils % 2.0 Basophils % 2.0 Neutrophils # 7.3 Lymphocytes # 3.2 Monocytes # 0.5 Eosinophils # 0.2 Basophils # 0.2 Platelet Estimate Normal Sodium 135 L Potassium 3.5 Chloride 106 Carbon Dioxide 21 L BUN 6 Creatinine 0.28 L Est GFR ( Amer) > 60 Est GFR (Non-Af Amer) > 60 BUN/Creatinine Ratio 21 Glucose 91 Calculated Osmolality 277 L Calcium 8.1 L Total Bilirubin 0.5 AST 106 H ALT 156 H Alkaline Phosphatase 53 Serum Total Protein 5.8 L Albumin 3.4 L Globulin 2.4 Albumin/Globulin Ratio 1.4 Date of admission: 06/19/17 02:41 Primary care physician: PCP NONE Consults: 06/19/17 04:13 Consult to Nutrition [CONS] Routine Comment: Consulting Provider: NUTRITION Reason for Dietary Consult: MST Score Consult to Shaper Set Up Operator [CONS] Routine Reason for SW Consult: Unable to get prescriptions covered after last hospital admission 06/19/17 06:46 Consult to Hospitalist [CONS] Routine Consulting Provider: Hospitalist Jennifer Reason for Consult: correct electrolyte imbalance Call Completed: Yes Discharging clinician: Alla Cotton Anticipated date of discharge: 06/22/17 - Patient Status Disposition: Home, Self-Care Condition: Good Functional capacity at discharge: independent ambulation - Discharge Instructions Follow Up With: NONE,PCP [Primary Care Provider] - Renny Akins MD [Partnered Physician] - Forms: ED Satisfaction Letter - Diet and Activity Activity: increase activity as tolerated Diet: advance to your usual diet Hospital Course [employer] Hospital course: Patient to go home also with a taper dose of Prednisone. RX called to pharmacy. Time Attestation: Total time spent providing and/or coordinating discharge services: Time Spent: Less than 30 minutes Exam - Constitutional Vitals: Temp Pulse Resp BP Pulse Ox 97.7 F 94 16 110/75 97 06/22/17 07:30 06/22/17 07:30 06/22/17 07:30 06/22/17 07:30 06/22/17 04:25 General appearance IM: A&O X 3, pleasant, answers questions appropriately
== END 2017-06-22 17:13 | disposition home or self-care (01) ==
LOC: 1NENUOBS 23:21 → EMEROO 23:21 → SUATTDRO 06-19 02:41 → 1NENUOBS 06-19 03:22
PROVIDERS: ADMIT Obstetrics & Gynecology; ATTEND Internal Medicine

== ENCOUNTER 2017-07-19 17:16 | Observation (INO) ==
[2017-07-19] MEDS ORDERED: Ringers Solution, Lactated 1,000 ML IVC ONE (18:06)
[2017-07-19 18:49] LABS: Basophils % 0.2 %; Eosinophils % 0.3 %; Hematocrit 34.7 % (35.3-44.9); Hemoglobin 11.9 g/dL (11.5-15.4); Immature Granulocytes % 0.4 % (0-4); Lymphocytes # 1.3 K/mcL (0.6-4.6); Mean Corpuscular HGB Conc 34.3 g/dL (31.6-35.5); Mean Corpuscular Volume 87.4 fL (83.0-100.0); Mean Platelet Volume 9.6 fL (9.4-12.4); Monocytes # 0.2 K/mcL (0.0-1.3); Monocytes % 1.7 %; Neutrophils # 11.5 K/mcL (1.6-8.9); Platelet Count 265 K/mcL (140-400); Red Blood Count 3.97 M/mcL (3.82-4.97); Red Cell Distribution Width 12.8 % (11.5-14.5); Segmented Neutrophils % 87.4 %
[2017-07-19 19:05] LABS: Bilirubin,Total 0.3 mg/dL (0.3-1.0); Calcium 8.8 mg/dL (8.6-10.3); Carbon Dioxide 23 mEq/L (23-29); Chloride 107 mEq/L (98-107); Potassium 3.6 mEq/L (3.5-5.1); Sodium 135 mEq/L (136-145)
[2017-07-19 19:11] LABS: Alanine Aminotransferase 5 Units/L (7-52); Albumin/Globulin Ratio 1.3 (1.1-2.2); Alkaline Phosphatase 67 Units/L (34-104); Aspartate Amino Transferase 9 Units/L (13-39); BUN/Creatinine Ratio 23 (6-26); Blood Urea Nitrogen 7 mg/dL (6-20); Glucose 123 mg/dL (70-105); Osmolality,Calculated 279 (280-300); eGFR For African Americans > 60 (> 60); eGFR For Non-African Americans > 60 (> 60)
[2017-07-19] MEDS ORDERED: Ondansetron 4 MG/2 ML VIAL IVP ONE (19:38)
[2017-07-19 19:57] LABS: Bilirubin,Urine Negative (Negative); Blood,Urine Negative (Negative); Clarity,Urine Cloudy (Clear); Color,Urine Yellow (Yellow); Glucose,Urine (UA) Normal (Normal); Ketones,Urine Trace mg/dL (Negative); Leukocyte Esterase,Urine Negative (Negative); Nitrite,Urine Negative (Negative); PH,Urine 7.5 pH Units (5.0-8.0); Protein,Urine Trace mg/dL (Neg-Trace); Specific Gravity,Urine 1.024 (1.010-1.025); Urobilinogen,Urine Normal (Normal)
[2017-07-19 20:00] LABS: Bacteria,Urine None Seen per hpf (None-Few); Hyaline Casts,Urine None Seen per lpf (None-Few); Squamous Epithelial Cell,Urine Many per lpf (None-Few); WBC,Urine 0-3 per hpf (0-3)
[2017-07-19 20:02] LABS: Amphetamine Screen,Urine Negative ng/mL (Cutoff=1000); Barbiturate Screen,Urine Negative ng/mL (Cutoff=200); Benzodiazepines Screen,Urine Negative ng/mL (Cutoff=200); Cannabinoid Screen,Urine Negative ng/mL (Cutoff = 50); Cocaine Screen,Urine Negative ng/mL (Cutoff= 300); Opiate Screen,Urine Negative ng/mL (Cutoff=300); Phencyclidine Screen,Urine Negative ng/mL (Cutoff=25)
--- NOTE | 2017-07-19 20:37 | OB/GYN Progress Note ---
Date of Encounter: 07/19/17 Time of Encounter: 20:23 - Assessment and Plan (1) 22 weeks gestation of Current Visit: Yes Status: Acute FHT obtained by doppler Admit for Observation d/t nausea/vomiting (2) Drug use affecting in second trimester Current Visit: Yes Status: Acute Patient is in the Subutex group currently Has been noncompliant with care, only been seen in the office once. May take Subutex home med tonight (3) Nausea and vomiting during Current Visit: No Status: Acute Patient is currently on a Zofran pump and has a Phenergan prescription at home. Admit overnight for Observation Consult hospitalist IV hydration, Zofran q6 prn Patient states she is too weak to walk and doesn't feel safe going home. Mueller catheter SCD's Subjective - Subjective Principal diagnosis: Nausea/Vomiting Interval history: Carmen is a 27 year old at 22w3d who presents for intractable vomiting she states began yesterday. Patient has been admitted on multiple occasions for this same complaint. She currently has a Zofran pump in place but is requesting Phenergan. She reports that she feel the Zofran pump was helping her nausea until yesterday. Reports positive movement, denies fluid leakage and vaginal bleeding. After patient told Crystal she wanted to go home she told the nurse she did not feel safe going home because she is too weak and dizzy. Will admit to observation and consult hospitalist, give IV hydration. Antepartum ROS: movement normal, no loss of fluid, no vaginal bleeding, no contractions Objective - Vital Signs Vital Signs: Intake and Output 07/19/17 07/19/17 07/19/17 07:59 15:59 23:59 Other: Weight 74.8 kg Patient Weight 07/19/17 23:59 Weight 74.8 kg - Exam FHR: auscultation normal FHR comments: 140 bpm Auscultation: bilateral: normal Abdomen: Present: normal appearance, soft, gravid Uterus: Present: normal Cervical dilation: deferred - Labs Labs: Abnormal lab results WBC 13.2 K/mcL (4.3-11.1) H 07/19/17 18:40 Hct 34.7 % (35.3-44.9) L 07/19/17 18:40 Neutrophils # 11.5 K/mcL (1.6-8.9) H 07/19/17 18:40 Sodium 135 mEq/L (136-145) L 07/19/17 18:40 Creatinine 0.30 mg/dL (0.60-1.20) L 07/19/17 18:40 Glucose 123 mg/dL (70-105) H 07/19/17 18:40 Calculated Osmolality 279 (280-300) L 07/19/17 18:40 AST 9 Units/L (13-39) L 07/19/17 18:40 ALT 5 Units/L (7-52) L 07/19/17 18:40 Urine Clarity Cloudy (Clear) A 07/19/17 19:39 Urine Ketones Trace mg/dL (Negative) H 07/19/17 19:39 Urine Microscopic RBC 3-5 per hpf (0-3) H 07/19/17 19:39 Ur Squamous Epith Cells Many per lpf (None-Few) H 07/19/17 19:39 - Allied health notes Allied health notes reviewed: social work (Crystal Quigley spoke with patient while she was here.)
[2017-07-19] MEDS ORDERED: SUBUTEX 8 MG SL ONE ×2 (21:02→21:15)
[2017-07-19] MEDS ORDERED: D5% in Lactated Ringers 1,000 ML IVC ONE (21:18)
[2017-07-19] MEDS ORDERED: Ondansetron 4 MG/2 ML VIAL IVP PRN (22:21)
--- NOTE | 2017-07-19 22:54 | Internal Medicine Consult Note ---
Date of Encounter: 07/19/17 Time of Encounter: 22:49 - Assessment and Plan (1) Hyperemesis arising during Current Visit: No Status: Acute Assessment and plan: Cont zofran 4mg Q4-6hr PRN Please avoid phenergan / compazine since pt is on Subutuex Encourage sips of water, small quantity of food Pt does have drug seeking behavior, which is going to make things more complicated cont close monitoring She does not look malnourished..however will check Prealbumin level in AM Also may get benefit with sap pi architect annie Depending on prealbumin level we can assess for TPN need in AM recommend to start her on PPI along with Zofran cont IV hydration (2) Dehydration Current Visit: No Status: Acute Assessment and plan: Cont IV hydration (3) 22 weeks gestation of Current Visit: Yes Status: Acute Assessment and plan: Continue current excellent care by primary OB team (4) GERD (gastroesophageal reflux disease) Current Visit: Yes Status: Acute Assessment and plan: Recommend PPI Qualifiers: Qualified Code(s): K21.9 - Gastro-esophageal reflux disease without esophagitis (5) Narcotic dependence Current Visit: Yes Status: Acute Assessment and plan: currently on Subutuex daily..will cont for now I would not suggest to give phenergan / sedative with Subutuex (6) Physical deconditioning Current Visit: Yes Status: Acute Assessment and plan: PT / OT eval Internal Medicine - CN: HPI - Data of Consult Patient: known to practice within the last 3 years Requesting Physician: Renny Akins MD - Consult Narrative History of present illness: Ms. Callahan is a 27 year old female G5, P4, 22W 3D, h/o IV durg abuse , Narcotic dependence currently on Subutex treatment, chronic tobacco dependence, who has multiple hospitlizations here recently for severe hyperemesis and pt was placed on Zofran pump, now she presented to ER with intractable vomiting since yesterday. She currently has a Zofran pump in place, which seems to be not working now, she is getting Zofran IV PRN , however she is requesting for Phenergan. She also c/o She is too weak and dizzy, not able to ambulate well, and unable to take care of herself at home. She denied any CP / SOB. Past Med Surg Social Fam HX - Past Medical History Medical history: asthma Psychiatric history: anxiety, bipolar - Past Surgical History Surgical History: cholecystectomy - Social History Smoking Status: Current every day smoker Smokeless Tobacco Status: No Alcohol use: none Drug use: none, prescription drug abuse - Family History Mother Living Status: Still Living Hx Family Cardiac Disorders: No Hx Family Respiratory Disorders: No Hx Family Cancer: No Hx Family GI Disorders: No Hx Family Genitourinary Disorders: No Hx Family Endocrine Disorder: No Hx Family Musculoskeletal Disorders: No Hx Family Neuromuscular Disorders: No Hx Family Neurologic Disorders: No Hx Family HEENT Disorders: No Hx Family Autoimmune Disorders: No Hx Family Reproductive Disorders: No Hx Family Psychosocial Disorders: No Hx Family Medical Disorders: No Review of systems: All the systems are reviewed everything is benign except the systems and symptoms I mentioned in the history of present illness Internal Medicine - CN: Meds Vit #116/Iron/FA/Dha [ Formula-Dha Softgel] 1 each PO DAILY 08/26 [History] DiphenhydraMINE [Benadryl] 25 mg PO Q8HR #30 capsule 06/22/17 [Rx] Buprenorphine HCl [Subutex] 12 mg SL DAILY 07/19/17 [History] Non-Formulary Medication [Non-Formulary Medication] 07/19/17 [History] Promethazine [Phenergan] 25 mg PO DAILY PRN 07/19/17 [History] 3 Allergy/AdvReac Type Severity Reaction Status Date / Time cephalexin [From Keflex] Allergy Rash Verified 04/10/17 22:37 Penicillins [PCN] Allergy Hives Verified 04/10/17 22:37 tramadol [From Ultram] Allergy Chest Pain Verified 04/10/17 22:37 Internal Medicine - CN: Exam - Constitutional General appearance IM: Present: cooperative, A&O X 3, answers questions appropriately - Head Head exam: Present: atraumatic, normal inspection - Neck Neck exam general surgery: Present: supple - Respiratory Respiratory exam: Present: decreased breath sounds. Absent: rales, respiratory distress, rhonchi, wheezes - Cardiovascular Cardiovascular exam IM: Present: RRR, +S1, +S2. Absent: tachycardia - GI/Abdominal GI/Abdominal exam IM: Present: normal bowel sounds, soft. Absent: rebound, rigid, tenderness - Extremities Exam Extremities exam IM: Absent: calf tenderness, pedal edema, tenderness - Back Exam Back exam: Absent: CVA tenderness (L), CVA tenderness (R) - Neurological Exam Neurological exam: Present: alert, oriented X3 - Psychiatric Psychiatric exam: Present: normal affect, normal mood - Skin Skin exam IM: Absent: rash Internal Medicine - CN: Reslt - Labs CBC & Chem 7: 07/19/17 18:40 07/19/17 18:40 Labs: Short CBC 07/19/17 Range/Units 18:40 WBC 13.2 H (4.3-11.1) K/mcL Hgb 11.9 (11.5-15.4) g/dL Hct 34.7 L (35.3-44.9) % Plt Count 265 (140-400) K/mcL Neutrophils # 11.5 H (1.6-8.9) K/mcL BMP 07/19/17 18:40 Sodium 135 L Potassium 3.6 Chloride 107 Carbon Dioxide 23 BUN 7 Creatinine 0.30 L Glucose 123 H Calcium 8.8 Liver Function 07/19/17 Range/Units 18:40 Total Bilirubin 0.3 (0.3-1.0) mg/dL AST 9 L (13-39) Units/L ALT 5 L (7-52) Units/L Alkaline Phosphatase 67 (34-104) Units/L Albumin 4.0 (3.5-5.7) g/dL Urine 07/19/17 Range/Units 19:39 Urine Color Yellow (Yellow) Urine Clarity Cloudy A (Clear) Urine pH 7.5 (5.0-8.0) pH Units Ur Specific [place] 1.024 (1.010-1.025) Urine Protein Trace (Neg-Trace) mg/dL Urine Glucose (UA) Normal (Normal) mg/dL Consult Discharge Plan - Plan Additional Instructions: LABOR AND DELIVERY DISCHARGE INSTRUCTIONS Signs and Symptoms to be Reported to your Doctor Immediately: * Sudden gush, continuous or intermittent lead of fluid from vagina (note the time of gush and color of fluid) * Onset of bright red vaginal bleeding with or without pain (if you had a vaginal exam during this visit you may notice some dark red spotting. This is normal.) * Lower abdominal cramping or backache that is premenstrual-like feeling. * More than 6 contractions in one hour. * Burning during urination, having to urinate more frequently or pain in your mid-back. * A change in the baby's activity. This could be an increase or decrease in activity. * Severe headache which does not go away with tylenol. * Sudden swelling in the face, hands, arms and/or legs. * Upper abdominal pain - sometimes associated with heartburn or nausea and is not relieved by Maalox, Mylanta or Tums. * Dizziness or blurred vision or visual disturbances (seeing stars/lights). * Kick Counts One hour after a meal, lay down on one side in a quiet place. Count the number of diana the baby moves during an hour. If less than 6 movements, notify your physician. Diet: *Force fluids - 8-10 tall glasses of fluid per day. May include popsicles and jello. *Limit caffeine - this includes chocolate, coffee, tea, any soft drink containing such as all krystal, Jose Yellow and Mountain Dew
[2017-07-20] MEDS: Pantoprazole 40 MG VIAL IVP SCH ×3 (01:33→16:45)
[2017-07-20] MEDS: Ondansetron 4 MG/2 ML VIAL IVP PRN ×5 (04:32→21:40)
[2017-07-20 05:02] LABS: Basophils % 0.2 %; Hematocrit 35.9 % (35.3-44.9); Hemoglobin 12.4 g/dL (11.5-15.4); Immature Granulocytes % 0.7 % (0-4); Lymphocytes # 1.7 K/mcL (0.6-4.6); Mean Corpuscular HGB Conc 34.5 g/dL (31.6-35.5); Mean Corpuscular Volume 86.9 fL (83.0-100.0); Mean Platelet Volume 9.9 fL (9.4-12.4); Monocytes # 0.6 K/mcL (0.0-1.3); Monocytes % 3.6 %; Neutrophils # 14.4 K/mcL (1.6-8.9); Platelet Count 330 K/mcL (140-400); Red Blood Count 4.13 M/mcL (3.82-4.97); Red Cell Distribution Width 12.8 % (11.5-14.5); Segmented Neutrophils % 85.5 %
[2017-07-20 05:40] LABS: Alanine Aminotransferase 6 Units/L (7-52); Albumin 3.7 g/dL (3.5-5.7); Albumin/Globulin Ratio 1.3 (1.1-2.2); Alkaline Phosphatase 63 Units/L (34-104); Aspartate Amino Transferase 8 Units/L (13-39); BUN/Creatinine Ratio 15 (6-26); Bilirubin,Total 0.3 mg/dL (0.3-1.0); Blood Urea Nitrogen 4 mg/dL (6-20); Calcium 8.7 mg/dL (8.6-10.3); Carbon Dioxide 22 mEq/L (23-29); Chloride 105 mEq/L (98-107); Globulin 2.9 g/dL (2.4-3.5); Glucose 119 mg/dL (70-105); Magnesium 1.6 mg/dL (1.6-2.6); Osmolality,Calculated 280 (280-300); Phosphorous 3.1 mg/dL (2.7-4.5); Potassium 3.1 mEq/L (3.5-5.1); Sodium 136 mEq/L (136-145); Total Protein 6.6 g/dL (6.4-8.9); eGFR For African Americans > 60 (> 60); eGFR For Non-African Americans > 60 (> 60)
--- NOTE | 2017-07-20 15:47 | Internal Med Progress Note ---
Date of Encounter: 07/20/17 Time of Encounter: 11:00 - Assessment and plan (1) Hyperemesis arising during Current Visit: No Status: Acute Assessment and plan: Appears to be chronic as she is on a Zofran pump at home. Presented with persistent nausea and vomiting. Patient has a history of substance abuse and there is concern of secondary gain/malingering. Still symptomatic with persistent nausea and vomiting; patient states no relief with Zofran. Continue as needed Zofran for now. Avoid Phenergan/Compazine per OB recommendations. (2) Hypokalemia Current Visit: No Status: Acute Assessment and plan: K 3.1; suspect secondary to nausea and vomiting. Passing chloride is a category C therefore will defer to OB for replacement. (3) 22 weeks gestation of Current Visit: Yes Status: Acute Assessment and plan: Well-known to OB service. OB following. (4) Narcotic dependence Current Visit: Yes Status: Acute Assessment and plan: per hx details unclear. Continue home Subutex. (5) Leukocytosis Current Visit: Yes Status: Acute Assessment and plan: WBC 16K, etiology unknown. Possibly reactive. UA not indicative of UTI. Somewhat tachycardic with heart rates in 110s. Lactic acid, blood cultures pending. Continue IV fluids. Qualifiers: Leukocytosis type: unspecified Qualified Code(s): D72.829 - Elevated white blood cell count, unspecified (6) DVT prophylaxis Current Visit: Yes Status: Acute Assessment and plan: ambulation - Subjective Interval history: Seen and examined bedside. Patient is new to me, information obtained from chart review and patient report. She appears uncomfortable, says she does not feel well. Still with persistent nausea and vomiting area says she is not able to keep food or liquids down. She also reports some upper abdominal pain. No loose stool. - Constitutional Vitals: Temp Pulse Resp BP Pulse Ox 98.8 F 111 16 115/75 96 07/20/17 07:24 07/20/17 07:24 07/20/17 07:24 07/20/17 07:24 07/20/17 07:24 General appearance: Present: cooperative, mild distress, A&O X 3, answers questions appropriately - Head Head exam: Present: atraumatic, normocephalic - Eye Eye exam: Present: PERRL, conjuntiva pink, sclera anicteric Pupils: Present: PERRL - Neck Neck exam general surgery: Present: supple, trachea midline. Absent: lymphadenopathy - Respiratory Respiratory exam: Present: CTAB. Absent: accessory muscle use, rales, rhonchi, wheezes - Cardiovascular Cardiovascular exam: Present: RRR, +S1, +S2. Absent: diastolic murmur, gallop, rubs, systolic murmur - GI/Abdominal GI/Abdominal exam: Present: normal bowel sounds, soft, no peritoneal signs. Absent: distended, tenderness - Extremities Exam Extremities exam: Present: warm, radial pulses palpable and symmetrical. Absent : calf tenderness, cyanotic, pedal edema - Neurological Exam Neurological exam: Present: CN II-XII intact, oriented X3, no focal deficits. Absent: pronater drift, facial droop, speech deficit - Skin Skin exam: Present: dry, intact Internal Medicine: Result - Labs CBC & Chem 7: 07/20/17 04:16 07/20/17 04:16 Labs: Short CBC 07/19/17 07/20/17 Range/Units 18:40 04:16 WBC 13.2 H 16.9 H (4.3-11.1) K/mcL Hgb 11.9 12.4 (11.5-15.4) g/dL Hct 34.7 L 35.9 (35.3-44.9) % Plt Count 265 330 (140-400) K/mcL Neutrophils # 11.5 H 14.4 H (1.6-8.9) K/mcL BMP 07/19/17 07/20/17 18:40 04:16 Sodium 135 L 136 Potassium 3.6 3.1 L Chloride 107 105 Carbon Dioxide 23 22 L BUN 7 4 L Creatinine 0.30 L 0.26 L Glucose 123 H 119 H Calcium 8.8 8.7 Liver Function 07/19/17 07/20/17 Range/Units 18:40 04:16 Total Bilirubin 0.3 0.3 (0.3-1.0) mg/dL AST 9 L 8 L (13-39) Units/L ALT 5 L 6 L (7-52) Units/L Alkaline Phosphatase 67 63 (34-104) Units/L Albumin 4.0 3.7 (3.5-5.7) g/dL Urine 07/19/17 Range/Units 19:39 Urine Color Yellow (Yellow) Urine Clarity Cloudy A (Clear) Urine pH 7.5 (5.0-8.0) pH Units Ur Specific Dougherty 1.024 (1.010-1.025) Urine Protein Trace (Neg-Trace) mg/dL Urine Glucose (UA) Normal (Normal) mg/dL - VTE Reasons for not Prescribing Prophylaxis: Treatment not Indicated - Low risk for VTE Documentation of Mechanical Device: Intermittent pneumatic compression device Consult Discharge Plan - Plan Additional Instructions: LABOR AND DELIVERY DISCHARGE INSTRUCTIONS Signs and Symptoms to be Reported to your Doctor Immediately: * Sudden gush, continuous or intermittent lead of fluid from vagina (note the time of gush and color of fluid) * Onset of bright red vaginal bleeding with or without pain (if you had a vaginal exam during this visit you may notice some dark red spotting. This is normal.) * Lower abdominal cramping or backache that is premenstrual-like feeling. * More than 6 contractions in one hour. * Burning during urination, having to urinate more frequently or pain in your mid-back. * A change in the baby's activity. This could be an increase or decrease in activity. * Severe headache which does not go away with tylenol. * Sudden swelling in the face, hands, arms and/or legs. * Upper abdominal pain - sometimes associated with heartburn or nausea and is not relieved by Maalox, Mylanta or Tums. * Dizziness or blurred vision or visual disturbances (seeing stars/lights). * Kick Counts One hour after a meal, lay down on one side in a quiet place. Count the number of diana the baby moves during an hour. If less than 6 movements, notify your physician. Diet: *Force fluids - 8-10 tall glasses of fluid per day. May include popsicles and jello. *Limit caffeine - this includes chocolate, coffee, tea, any soft drink containing such as all krystal, Jose Yellow and Mountain Dew Referrals: NONE,PCP [Primary Care Provider] -
[2017-07-20] MEDS ORDERED: Ringers Solution, Lactated 1,000 ML IVC SCH (16:00)
--- NOTE | 2017-07-20 16:20 | OB/GYN Progress Note ---
Date of Encounter: 07/20/17 Time of Encounter: 13:00 - Assessment and Plan (1) 22 weeks gestation of Current Visit: Yes Status: Acute Patient receives care with a [facility] COMM[facility] ATTEND[facility] that has been noncompliant with visits and has not received an anatomy scan, this was scheduled for today (2) Drug use affecting in second trimester Current Visit: Yes Status: Acute Patient is part of group, on Subutex. (3) Hypokalemia Current Visit: Yes Status: Acute Potassium rider has been ordered, repeat electrolytes in a.m. (4) Leukocytosis Current Visit: Yes Status: Acute Uncertain etiology. Repeat CBC in a.m. Patient remains afebrile Qualifiers: Leukocytosis type: unspecified Qualified Code(s): D72.829 - Elevated white blood cell count, unspecified (5) Narcotic dependence Current Visit: Yes Status: Chronic Patient is on Subutex and followed by [facility] COMM[facility]ICATION[facility] ATTENDANT in their group program. Phenergan has been discontinued as there is concern that this potentiate the Subutex that the patient receives and she is having a secondary gain from this medication (6) Nausea and vomiting during Current Visit: Yes Status: Acute The patient has multiple admissions for this. She has a Zofran pump at home. She now has hypokalemia which will be replaced. The patient reports that she was too lightheaded to be discharged yesterday so she has been given bedrest. OT and PT have been ordered to help with this. She now has ambulation with assistance ordered Subjective - Subjective Principal diagnosis: 22 wk N+V Interval history: Patient reports new onset of upper abdominal pain and continued nausea and vomiting since admission. Patient requesting Phenergan. She denies any vaginal bleeding. She reports not being able to eat or drink anything for 3 days Antepartum ROS: new complaints (Upper abdominal pain, normal bowel function), movement normal, no loss of fluid, no vaginal bleeding, no contractions Objective - Vital Signs Vital Signs: Vital Signs Temp Pulse Resp BP Pulse Ox 07/20/17 07:24 98.8 F 111 16 115/75 96 07/20/17 02:46 98.3 F 102 16 120/80 98 Intake and Output 07/20/17 07/20/17 07/20/17 07:59 15:59 23:59 Intake Total 0 / 0 Output Total 0 / 0 300 / 300 Balance 0 / 0 -300 / -300 Intake: Oral 0 / 0 Output: Urine 0 / 0 300 / 300 Other: Weight 76.748 kg Blood Glucose* 130 Patient Weight 07/20/17 23:59 Weight 76.748 kg Okay okay - Exam FHR: auscultation normal (140s per Doppler) Abdomen: Present: normal appearance, soft, gravid (At umbilicus), other (No peritoneal signs). Absent: tenderness (No tenderness appreciated in any quadrant) - Labs Labs: Abnormal lab results WBC 16.9 K/mcL (4.3-11.1) H 07/20/17 04:16 Neutrophils # 14.4 K/mcL (1.6-8.9) H 07/20/17 04:16 Potassium 3.1 mEq/L (3.5-5.1) L 07/20/17 04:16 Carbon Dioxide 22 mEq/L (23-29) L 07/20/17 04:16 BUN 4 mg/dL (6-20) L 07/20/17 04:16 Creatinine 0.26 mg/dL (0.60-1.20) L 07/20/17 04:16 Glucose 119 mg/dL (70-105) H 07/20/17 04:16 POC Glucose 130 (58-89) H 07/20/17 02:53 AST 8 Units/L (13-39) L 07/20/17 04:16 ALT 6 Units/L (7-52) L 07/20/17 04:16 Urine Clarity Cloudy (Clear) A 07/19/17 19:39 Urine Ketones Trace mg/dL (Negative) H 07/19/17 19:39 Urine Microscopic RBC 3-5 per hpf (0-3) H 07/19/17 19:39 Ur Squamous Epith Cells Many per lpf (None-Few) H 07/19/17 19:39 - Allied health notes Allied health notes reviewed: nursing
[2017-07-20] MEDS ORDERED: *HR* Buprenorphine HCl 2 MG SUBLINGUAL TABLET SL SCH (16:30)
[2017-07-20] MEDS: Ringers Solution, Lactated 1,000 ML IVC SCH (16:46)
[2017-07-20] MEDS: *HR* Buprenorphine HCl 8 MG TAB.SUBL SL SCH (17:14)
[2017-07-21] MEDS: Ringers Solution, Lactated 1,000 ML IVC SCH ×2 (02:13→04:56)
[2017-07-21] MEDS: Ondansetron 4 MG/2 ML VIAL IVP PRN ×4 (02:15→17:34)
[2017-07-21] MEDS: Pantoprazole 40 MG VIAL IVP SCH ×2 (04:49→17:02)
[2017-07-21] MEDS: Acetaminophen 325 MG TABLET PO PRN (04:56)
[2017-07-21 05:04] LABS: Basophils % 0.3 %; Eosinophils # 0.2 K/mcL (0.0-0.6); Eosinophils % 1.6 %; Hematocrit 30.5 % (35.3-44.9); Immature Granulocytes % 0.3 % (0-4); Lymphocytes # 3.4 K/mcL (0.6-4.6); Lymphocytes % 29.1 %; Mean Corpuscular HGB Conc 33.8 g/dL (31.6-35.5); Mean Corpuscular Hemoglobin 29.5 pg (28.0-33.3); Mean Corpuscular Volume 87.4 fL (83.0-100.0); Mean Platelet Volume 9.6 fL (9.4-12.4); Monocytes # 0.9 K/mcL (0.0-1.3); Monocytes % 7.5 %; Neutrophils # 7.1 K/mcL (1.6-8.9); Platelet Count 266 K/mcL (140-400); Red Blood Count 3.49 M/mcL (3.82-4.97); Red Cell Distribution Width 13.1 % (11.5-14.5); Segmented Neutrophils % 61.2 %
[2017-07-21 05:06] LABS: Hemoglobin 10.3 g/dL (11.5-15.4)
[2017-07-21 05:25] LABS: Alanine Aminotransferase 8 Units/L (7-52); Alkaline Phosphatase 55 Units/L (34-104); Aspartate Amino Transferase 15 Units/L (13-39); BUN/Creatinine Ratio 29 (6-26); Bilirubin,Total 0.4 mg/dL (0.3-1.0); Blood Urea Nitrogen 8 mg/dL (6-20); Calcium 8.3 mg/dL (8.6-10.3); Carbon Dioxide 23 mEq/L (23-29); Chloride 107 mEq/L (98-107); Glucose 84 mg/dL (70-105); Osmolality,Calculated 280 (280-300); Potassium 3.6 mEq/L (3.5-5.1); Sodium 136 mEq/L (136-145); eGFR For African Americans > 60 (> 60); eGFR For Non-African Americans > 60 (> 60)
[2017-07-21 05:26] LABS: Albumin 3.5 g/dL (3.5-5.7); Albumin/Globulin Ratio 1.4 (1.1-2.2); Globulin 2.5 g/dL (2.4-3.5)
[2017-07-21] MEDS ORDERED: *HR* Promethazine 25 MG/ML VIAL IM PRN (06:58)
[2017-07-21] MEDS ORDERED: *HR* Promethazine 25 MG/ML VIAL IM ONE (07:06)
--- NOTE | 2017-07-21 11:28 | OB/GYN Progress Note ---
Date of Encounter: 07/21/17 Time of Encounter: 11:30 - Assessment and Plan (1) 22 weeks gestation of Current Visit: Yes Status: Acute (2) Drug use affecting in second trimester Current Visit: Yes Status: Acute (3) GERD (gastroesophageal reflux disease) Current Visit: Yes Status: Acute Qualifiers: Esophagitis presence: without esophagitis Qualified Code(s): K21.9 - Gastro -esophageal reflux disease without esophagitis (4) Nausea and vomiting during Current Visit: Yes Status: Acute We will try adding some Phenergan to the IV bags along with pyridoxine to another bag and a multivitamin to the third bag and rotated on an 8 hour basis to see if this will help get of the medicines in her system slowly and help with her nausea vomiting. Subjective - Subjective Interval history: Patient continues to complain of severe nausea vomiting unable to keep anything down. The patient has had multiple visits for this and is on a Zofran pump at home. Patient states anything that controls her N/V is Phenergan but states whenever states Phenergan it causes her to feel like her skin is calling and she wants Benadryl with that. Did inform her I cannot give her both of those medications since both the sedatives and a concerned with the baby. Patient states her brother have Phenergan than the Benadryl. Did inform her we will try a low-dose of the Phenergan and then switch her IVs around to include Phenergan in the first bag of fluid followed by pyridoxine in the second bag and a multivitamin the third to see if this will help. Did talk to her about visits she states that we keep cancelling them on her in the office she does have on this week. Patient is still on a liquid diet not been able to advance her to regularly yet. Antepartum ROS: other (Nausea and vomiting) Objective - Vital Signs Vital Signs: Vital Signs Temp Pulse Resp BP Pulse Ox 07/21/17 09:09 99.0 F 90 17 150/95 98 07/21/17 03:04 97.6 F 90 16 100/64 97 07/20/17 22:57 98.0 F 56 16 88/57 95 Intake and Output 07/20/17 07/21/17 07/21/17 23:59 07:59 15:59 Intake Total 100 / 100 1999 Balance 100 / 100 1999 Intake: IV Fluids 100 / 100 1999 Lactated Ringers 1,000 ML @ 125 1999 mls/hr IVC .Q8H [facility] Rx#: [id number] Potassium Chloride 10 mEq/100mL / 10 meq In 100 ml @ 100 mls/hr IVPB Q1H [facility] Rx#:[id number] - Exam FHR: auscultation normal Abdomen: Present: gravid Uterus: Present: firm - Labs Labs: Abnormal lab results WBC 11.6 K/mcL (4.3-11.1) H 07/21/17 04:45 RBC 3.49 M/mcL (3.82-4.97) L 07/21/17 04:45 Hgb 10.3 g/dL (11.5-15.4) L D 07/21/17 04:45 Hct 30.5 % (35.3-44.9) L 07/21/17 04:45 Creatinine 0.28 mg/dL (0.60-1.20) L 07/21/17 04:45 BUN/Creatinine Ratio 29 (6-26) H 07/21/17 04:45 POC Glucose 130 (58-89) H 07/20/17 02:53 Calcium 8.3 mg/dL (8.6-10.3) L 07/21/17 04:45 Serum Total Protein 6.0 g/dL (6.4-8.9) L 07/21/17 04:45 Urine Clarity Cloudy (Clear) A 07/19/17 19:39 Urine Ketones Trace mg/dL (Negative) H 07/19/17 19:39 Urine Microscopic RBC 3-5 per hpf (0-3) H 07/19/17 19:39 Ur Squamous Epith Cells Many per lpf (None-Few) H 07/19/17 19:39
[2017-07-21] MEDS: Promethazine 50 MG in Ringers Solution, Lactated 1,000 ML IVPB SCH (13:25)
[2017-07-21] MEDS: *HR* Buprenorphine HCl 8 MG TAB.SUBL SL SCH (17:02)
--- NOTE | 2017-07-21 17:07 | Internal Med Progress Note ---
Date of Encounter: 07/21/17 Time of Encounter: 12:30 - Assessment and plan (1) Hyperemesis arising during Current Visit: No Status: Acute Assessment and plan: Appears to be chronic as she is on a Zofran pump at home. Presented with persistent nausea and vomiting. Patient has a history of substance abuse and there is concern of secondary gain/malingering. Still symptomatic with persistent nausea and vomiting; patient states no relief with Zofran. OB IV and Phenergan to IV fluids and rotating with multivitamin. Further management per OB (2) Hypokalemia Current Visit: No Status: Acute Assessment and plan: K 3.1; suspect secondary to nausea and vomiting. Passing chloride is a category C therefore will defer to OB for replacement. K normalized on 07/21 (3) 22 weeks gestation of Current Visit: Yes Status: Acute Assessment and plan: Well-known to OB service. OB following. (4) Narcotic dependence Current Visit: Yes Status: Chronic Assessment and plan: per hx details unclear. Continue home Subutex. (5) Leukocytosis Current Visit: Yes Status: Acute Assessment and plan: WBC 16K, etiology unknown. Possibly reactive. UA not indicative of UTI. Was tachycardic , now resolved. Lactic acid normal, WBC trending down. Suspect reactive with persistent nausea vomiting. Continue IV fluids. Qualifiers: Leukocytosis type: unspecified Qualified Code(s): D72.829 - Elevated white blood cell count, unspecified (6) DVT prophylaxis Current Visit: Yes Status: Acute Assessment and plan: ambulation - Subjective Interval history: Seen and examined bedside. Still appears uncomfortable and says she does not feel well. She says she is sore and achy all over. Not tolerating oral intake. Still very nauseated and having multiple emesis. Does not feel she can go home today. - Constitutional Vitals: Temp Pulse Resp BP Pulse Ox 99.0 F 90 17 150/95 98 07/21/17 09:09 07/21/17 09:09 07/21/17 09:09 07/21/17 09:09 07/21/17 09:09 General appearance: Present: cooperative, mild distress, A&O X 3, answers questions appropriately - Head Head exam: Present: atraumatic, normocephalic - Eye Eye exam: Present: PERRL, conjuntiva pink, sclera anicteric Pupils: Present: PERRL - Neck Neck exam general surgery: Present: supple, trachea midline. Absent: lymphadenopathy - Respiratory Respiratory exam: Present: CTAB. Absent: accessory muscle use, rales, rhonchi, wheezes - Cardiovascular Cardiovascular exam: Present: RRR, +S1, +S2. Absent: diastolic murmur, gallop, rubs, systolic murmur - GI/Abdominal GI/Abdominal exam: Present: normal bowel sounds, soft, no peritoneal signs. Absent: distended, tenderness - Extremities Exam Extremities exam: Present: warm, radial pulses palpable and symmetrical. Absent : calf tenderness, cyanotic, pedal edema - Neurological Exam Neurological exam: Present: CN II-XII intact, oriented X3, no focal deficits. Absent: pronater drift, facial droop, speech deficit - Skin Skin exam: Present: dry, intact Internal Medicine: Result - Labs CBC & Chem 7: 07/21/17 04:45 07/21/17 04:45 Labs: Short CBC 07/21/17 Range/Units 04:45 WBC 11.6 H (4.3-11.1) K/mcL Hgb 10.3 L D (11.5-15.4) g/dL Hct 30.5 L (35.3-44.9) % Plt Count 266 (140-400) K/mcL Neutrophils # 7.1 (1.6-8.9) K/mcL BMP 07/21/17 04:45 Sodium 136 Potassium 3.6 Chloride 107 Carbon Dioxide 23 BUN 8 Creatinine 0.28 L Glucose 84 Calcium 8.3 L Liver Function 07/21/17 Range/Units 04:45 Total Bilirubin 0.4 (0.3-1.0) mg/dL AST 15 (13-39) Units/L ALT 8 (7-52) Units/L Alkaline Phosphatase 55 (34-104) Units/L Albumin 3.5 (3.5-5.7) g/dL - Impressions Impressions Obstetrics Ultrasound 07/20/17 19:00 IMPRESSION: Single live intrauterine with gestational age of 22 weeks 1 day by current sonographic biometry. The estimated due date is 18 November 2017. Appropriate interval growth has taken place since prior exam. D/ / Violet Pierson MD / Violet Pierson MD Interpreting Provider: Violet Pierson MD - VTE Reasons for not Prescribing Prophylaxis: Treatment not Indicated - Low risk for VTE Documentation of Mechanical Device: Intermittent pneumatic compression device Consult Discharge Plan - Plan Additional Instructions: LABOR AND DELIVERY DISCHARGE INSTRUCTIONS Signs and Symptoms to be Reported to your Doctor Immediately: * Sudden gush, continuous or intermittent lead of fluid from vagina (note the time of gush and color of fluid) * Onset of bright red vaginal bleeding with or without pain (if you had a vaginal exam during this visit you may notice some dark red spotting. This is normal.) * Lower abdominal cramping or backache that is premenstrual-like feeling. * More than 6 contractions in one hour. * Burning during urination, having to urinate more frequently or pain in your mid-back. * A change in the baby's activity. This could be an increase or decrease in activity. * Severe headache which does not go away with tylenol. * Sudden swelling in the face, hands, arms and/or legs. * Upper abdominal pain - sometimes associated with heartburn or nausea and is not relieved by Maalox, Mylanta or Tums. * Dizziness or blurred vision or visual disturbances (seeing stars/lights). * Kick Counts One hour after a meal, lay down on one side in a quiet place. Count the number of diana the baby moves during an hour. If less than 6 movements, notify your physician. Diet: *Force fluids - 8-10 tall glasses of fluid per day. May include popsicles and jello. *Limit caffeine - this includes chocolate, coffee, tea, any soft drink containing such as all krystal, Jose Yellow and Mountain Dew Referrals: NONE,PCP [Primary Care Provider] -
[2017-07-21 18:52] LABS: Adenovirus Not Detected (Not Detect); Coronavirus 229E Not Detected (Not Detect); Coronavirus HKU1 Not Detected (Not Detect); Coronavirus NL63 Not Detected (Not Detect); Coronavirus OC43 Not Detected (Not Detect); Human Metapneumovirus Not Detected (Not Detect); Human Rhinovirus/Enterovirus Not Detected (Not Detect); Influenza A Subtype 2009 H1 Not Detected (Not Detect); Influenza A Untypeable Not Detected (Not Detect); Influenza B Not Detected (Not Detect); Parainfluenza Virus 1 Not Detected (Not Detect); Parainfluenza Virus 2 Not Detected (Not Detect); Parainfluenza Virus 3 Not Detected (Not Detect)
[2017-07-21 18:53] LABS: Bordetella Pertussis Not Detected (Not Detect); Chlamydophila pneumoniae Not Detected (Not Detect); Mycoplasma pneumoniae Not Detected (Not Detect); Parainfluenza Virus 4 Not Detected (Not Detect); Respiratory Syncytial Virus Not Detected (Not Detect)
[2017-07-21] MEDS: Pyridoxine (B-6) 50 MG in Ringers Solution, Lactated 1,000 ML IVPB SCH (20:34)
[2017-07-22] MEDS: Ondansetron 4 MG/2 ML VIAL IVP PRN ×3 (01:41→16:10)
[2017-07-22] MEDS: *HR* Promethazine 25 MG/ML VIAL IVP PRN ×2 (03:17→11:20)
[2017-07-22] MEDS: Acetaminophen 325 MG TABLET PO PRN (03:17)
[2017-07-22] MEDS ORDERED: MVI, adult with vitamin K 10 ML in Ringers Solution, Lactated 1,000 ML IV SCH (04:00)
[2017-07-22] MEDS: Pantoprazole 40 MG VIAL IVP SCH ×2 (05:42→16:50)
--- NOTE | 2017-07-22 15:15 | OB/GYN Progress Note ---
Date of Encounter: 07/22/17 Time of Encounter: 15:11 - Assessment and Plan (1) Nausea and vomiting during Current Visit: Yes Status: Acute Begin reglan IVP Insert IV Advance diet Reassess for discharge in AM with zofran pump (2) 22 weeks gestation of Current Visit: Yes Status: Acute Follow up in the office with routine labs (3) Drug use affecting in second trimester Current Visit: Yes Status: Acute Continue subutex as ordered. (4) Hypokalemia Current Visit: Yes Status: Acute Resolved (5) Leukocytosis Current Visit: Yes Status: Acute Improving Qualifiers: Leukocytosis type: unspecified Qualified Code(s): D72.829 - Elevated white blood cell count, unspecified Subjective - Subjective Interval history: Patient continues to complain of severe nausea vomiting, able to keep down most clear liquids The patient has had multiple visits for this and is on a Zofran pump at home. Patient states anything that controls her N/V is Phenergan but states whenever states Phenergan it causes her to feel like her skin is calling and she wants Benadryl with that. Did inform her I cannot give her both of those medications since both the sedatives and a concerned with the baby. We will begin to advance her diet with full liquids and dry carbs. I also ordered reglan. Patient has lost her IV, will need to restart or place PICC if unable to place peripheral IV. Antepartum ROS: other (Nausea and vomiting) Objective - Vital Signs Vital Signs: Vital Signs Temp Pulse Resp BP Pulse Ox 07/22/17 07:41 98.9 F 95 16 155/95 97 07/22/17 03:11 98.5 F 87 16 141/94 100 07/21/17 22:51 98.6 F 93 16 100/64 95 07/21/17 19:35 98.3 F 98 16 128/83 95 Intake and Output 07/21/17 07/22/17 07/22/17 23:59 07:59 15:59 Intake Total 1001 / 1001 1000.5 / 1000.5 Output Total 200 / 200 Balance 1001 / 1001 800.5 / 800.5 Intake: IV Fluids 1001 / 1001 1000.5 / 1000.5 Phenergan 50 MG In Lactated 1001 / 1001 Ringers 1,000 ML @ 125.125 mls/ hr IVPB DAILY@1200 [facility] Rx#: [id number] Vitamin B-6 50 MG In Lactated 1000.5 / 1000.5 Ringers 1,000 ML @ 125.063 mls/ hr IVPB DAILY@2000 [facility] Rx#: [id number] Output: Urine 200 / 200 Other: Weight 75.886 kg Patient Weight 07/22/17 23:59 Weight 75.886 kg - Exam FHR: auscultation normal FHR comments: FHTs 160 Auscultation: bilateral: normal Abdomen: Present: normal appearance, soft, gravid Uterus: Present: normal. Absent: firm, tenderness - Labs Labs: Abnormal lab results WBC 11.6 K/mcL (4.3-11.1) H 07/21/17 04:45 RBC 3.49 M/mcL (3.82-4.97) L 07/21/17 04:45 Hgb 10.3 g/dL (11.5-15.4) L D 07/21/17 04:45 Hct 30.5 % (35.3-44.9) L 07/21/17 04:45 Creatinine 0.28 mg/dL (0.60-1.20) L 07/21/17 04:45 BUN/Creatinine Ratio 29 (6-26) H 07/21/17 04:45 POC Glucose 130 (58-89) H 07/20/17 02:53 Calcium 8.3 mg/dL (8.6-10.3) L 07/21/17 04:45 Serum Total Protein 6.0 g/dL (6.4-8.9) L 07/21/17 04:45 Urine Clarity Cloudy (Clear) A 07/19/17 19:39 Urine Ketones Trace mg/dL (Negative) H 07/19/17 19:39 Urine Microscopic RBC 3-5 per hpf (0-3) H 07/19/17 19:39 Ur Squamous Epith Cells Many per lpf (None-Few) H 07/19/17 19:39
--- NOTE | 2017-07-22 16:33 | Internal Med Progress Note ---
Date of Encounter: 07/22/17 Time of Encounter: 16:32 - Assessment and plan (1) Hyperemesis arising during Current Visit: No Status: Acute Assessment and plan: Appears to be chronic as she is on a Zofran pump at home. Presented with persistent nausea and vomiting. Patient has a history of substance abuse and there is concern of secondary gain/malingering. Still symptomatic with persistent nausea and vomiting; patient states no relief with Zofran. IV Phenergan added to IV fluids, rotating with multivitamin and reglan. Further management per OB (2) Hypokalemia Current Visit: No Status: Acute Assessment and plan: K 3.1; suspect secondary to nausea and vomiting. K normalized on 07/21 (3) 22 weeks gestation of Current Visit: Yes Status: Acute Assessment and plan: Well-known to OB service. OB following. (4) Narcotic dependence Current Visit: Yes Status: Chronic Assessment and plan: per hx details unclear. Continue home Subutex. (5) Leukocytosis Current Visit: Yes Status: Acute Assessment and plan: WBC 16K, etiology unknown. Possibly reactive. UA not indicative of UTI. Was tachycardic , now resolved. Lactic acid normal, WBC trending down. Suspect reactive with persistent nausea vomiting. Continue IV fluids. Qualifiers: Leukocytosis type: unspecified Qualified Code(s): D72.829 - Elevated white blood cell count, unspecified (6) DVT prophylaxis Current Visit: Yes Status: Acute Assessment and plan: ambulation - Subjective Interval history: Seen and examined bedside. Still appears uncomfortable and says she does not feel well. Says she has not been eating because she is afraid she will vomit. Has not been out of bed much at all. Discussed case with RN and patient apparently has been using the bedpan refusing to get out of bed. Discussed with OB as well who suspects patient may not be on home dose of Subutex which is contributing to her nausea and vomiting. - Constitutional Vitals: Temp Pulse Resp BP Pulse Ox 100.0 F H 102 17 137/89 95 07/22/17 15:53 07/22/17 15:53 07/22/17 15:53 07/22/17 15:53 07/22/17 15:53 General appearance: Present: cooperative, mild distress, A&O X 3, answers questions appropriately - Head Head exam: Present: atraumatic, normocephalic - Eye Eye exam: Present: PERRL, conjuntiva pink, sclera anicteric Pupils: Present: PERRL - Neck Neck exam general surgery: Present: supple, trachea midline. Absent: lymphadenopathy - Respiratory Respiratory exam: Present: CTAB. Absent: accessory muscle use, rales, rhonchi, wheezes - Cardiovascular Cardiovascular exam: Present: RRR, +S1, +S2. Absent: diastolic murmur, gallop, rubs, systolic murmur - GI/Abdominal GI/Abdominal exam: Present: normal bowel sounds, soft, no peritoneal signs. Absent: distended, tenderness - Extremities Exam Extremities exam: Present: warm, radial pulses palpable and symmetrical. Absent : calf tenderness, cyanotic, pedal edema - Neurological Exam Neurological exam: Present: CN II-XII intact, oriented X3, no focal deficits. Absent: pronater drift, facial droop, speech deficit - Skin Skin exam: Present: dry, intact Internal Medicine: Result - Labs CBC & Chem 7: 07/21/17 04:45 07/21/17 04:45 - VTE Reasons for not Prescribing Prophylaxis: Treatment not Indicated - Low risk for VTE Documentation of Mechanical Device: Intermittent pneumatic compression device Consult Discharge Plan - Plan Additional Instructions: LABOR AND DELIVERY DISCHARGE INSTRUCTIONS Signs and Symptoms to be Reported to your Doctor Immediately: * Sudden gush, continuous or intermittent lead of fluid from vagina (note the time of gush and color of fluid) * Onset of bright red vaginal bleeding with or without pain (if you had a vaginal exam during this visit you may notice some dark red spotting. This is normal.) * Lower abdominal cramping or backache that is premenstrual-like feeling. * More than 6 contractions in one hour. * Burning during urination, having to urinate more frequently or pain in your mid-back. * A change in the baby's activity. This could be an increase or decrease in activity. * Severe headache which does not go away with tylenol. * Sudden swelling in the face, hands, arms and/or legs. * Upper abdominal pain - sometimes associated with heartburn or nausea and is not relieved by Maalox, Mylanta or Tums. * Dizziness or blurred vision or visual disturbances (seeing stars/lights). * Kick Counts One hour after a meal, lay down on one side in a quiet place. Count the number of diana the baby moves during an hour. If less than 6 movements, notify your physician. Diet: *Force fluids - 8-10 tall glasses of fluid per day. May include popsicles and jello. *Limit caffeine - this includes chocolate, coffee, tea, any soft drink containing such as all krystal, Jose Yellow and Mountain Dew Referrals: NONE,PCP [Primary Care Provider] -
[2017-07-22] MEDS: *HR* Buprenorphine HCl 8 MG TAB.SUBL SL SCH (16:50)
[2017-07-22] MEDS: Promethazine 50 MG in Ringers Solution, Lactated 1,000 ML IVPB SCH (16:51)
[2017-07-22] MEDS ORDERED: Metoclopramide 10 MG/2 ML VIAL IVP SCH (18:00)
[2017-07-22] MEDS: Pyridoxine (B-6) 50 MG in Ringers Solution, Lactated 1,000 ML IVPB SCH (21:50)
--- NOTE | 2017-07-22 21:57 | Discharge Summary ---
Date of Encounter: 07/22/17 Time of Encounter: 21:56 - Discharge Diagnosis (1) Nausea and vomiting during Priority: Primary Status: Acute Comments: Patient requesting discharge home tonight Discharge home with Zofran pump (patient has already) Progress to regular diet slowly Follow up in office for routine care. (2) 22 weeks gestation of Priority: Secondary Status: Acute Comments: Follow up in office with Dr Tashi LIN (3) Drug use affecting in second trimester Priority: Secondary Status: Acute Comments: Follow up with group (4) Hypokalemia Priority: Secondary Status: Resolved (5) Leukocytosis Priority: Secondary Status: Acute Comments: Resolving Qualifiers: Leukocytosis type: unspecified Qualified Code(s): D72.829 - Elevated white blood cell count, unspecified - Discharge Medications Home Medications: Vit #116/Iron/FA/Dha [ Formula-Dha Softgel] 1 each PO DAILY 08/26 [History] DiphenhydraMINE [Benadryl] 25 mg PO Q8HR #30 capsule 06/22/17 [Rx] Buprenorphine HCl [Subutex] 12 mg SL DAILY 07/19/17 [History] Non-Formulary Medication 1 each SQ AD 07/19/17 [History] Promethazine [Phenergan] 25 mg PO DAILY PRN 07/19/17 [History] Acetaminophen [Tylenol] 650 mg PO Q6HR PRN tablet 07/22/17 [Rx] Allergies/Adverse Reactions: 3 Allergy/AdvReac Type Severity Reaction Status Date / Time cephalexin [From Keflex] Allergy Rash Verified 04/10/17 22:37 Penicillins [PCN] Allergy Hives Verified 04/10/17 22:37 tramadol [From Ultram] Allergy Chest Pain Verified 04/10/17 22:37 Data Procedures and tests throughout hospitalization: Laboratory Tests 07/19/17 07/19/17 07/19/17 18:40 18:40 19:39 WBC 13.2 H RBC 3.97 Hgb 11.9 Hct 34.7 L MCV 87.4 MCH 30.0 MCHC 34.3 RDW 12.8 Plt Count 265 MPV 9.6 Immature Gran % 0.4 Seg Neutrophils % 87.4 Lymphocytes % 10.0 Monocytes % 1.7 Eosinophils % 0.3 Basophils % 0.2 Neutrophils # 11.5 H Lymphocytes # 1.3 Monocytes # 0.2 Eosinophils # 0.0 Basophils # 0.0 Sodium 135 L Potassium 3.6 Chloride 107 Carbon Dioxide 23 BUN 7 Creatinine 0.30 L Est GFR ( Amer) > 60 Est GFR (Non-Af Amer) > 60 BUN/Creatinine Ratio 23 Glucose 123 H POC Glucose Calculated Osmolality 279 L Lactic Acid Calcium 8.8 Phosphorus Magnesium Total Bilirubin 0.3 AST 9 L ALT 5 L Alkaline Phosphatase 67 Serum Total Protein 7.0 Albumin 4.0 Globulin 3.0 Albumin/Globulin Ratio 1.3 Prealbumin Urine Color Urine Clarity Urine pH Ur Specific [place] Urine Protein Urine Glucose (UA) Urine Ketones Urine Blood Urine Nitrite Urine Bilirubin Urine Urobilinogen Ur Leukocyte Esterase Urine Microscopic RBC Urine Microscopic WBC Ur Squamous Epith Cells Urine Bacteria Hyaline Casts Ur Culture Indicated? Urine Opiates Screen Negative Ur Barbiturates Screen Negative Ur Phencyclidine Scrn Negative Ur Amphetamines Screen Negative U Benzodiazepines Scrn Negative Urine Cocaine Screen Negative U Marijuana (THC) Screen Negative Chlamy pneumoniae PCR Adenovirus (PCR) B. pertussis DNA (PCR) B.parapertussis DNA PCR Coronavirus OC43 (PCR) Coronavirus HKU1 (PCR) Coronavirus 229E (PCR) Coronavirus NL63 (PCR) Human Metapneumovir PCR Influenza A (H1) PCR Influ A (H1N1/09) PCR Influenza A (H3) PCR Influenza A Untype (PCR) Influenza Type B (PCR) M.pneumoniae DNA (PCR) Parainfluenza 1 (PCR) Parainfluenza 2 (PCR) Parainfluenza 3 (PCR) Parainfluenza 4 (PCR) RSV (PCR) Entero/Rhino (PCR) 07/19/17 07/20/17 07/20/17 19:39 02:53 04:16 WBC RBC Hgb Hct MCV MCH MCHC RDW Plt Count MPV Immature Gran % Seg Neutrophils % Lymphocytes % Monocytes % Eosinophils % Basophils % Neutrophils # Lymphocytes # Monocytes # Eosinophils # Basophils # Sodium 136 Potassium 3.1 L Chloride 105 Carbon Dioxide 22 L BUN 4 L Creatinine 0.26 L Est GFR ( Amer) > 60 Est GFR (Non-Af Amer) > 60 BUN/Creatinine Ratio 15 Glucose 119 H POC Glucose 130 H Calculated Osmolality 280 Lactic Acid Calcium 8.7 Phosphorus 3.1 Magnesium 1.6 Total Bilirubin 0.3 AST 8 L ALT 6 L Alkaline Phosphatase 63 Serum Total Protein 6.6 Albumin 3.7 Globulin 2.9 Albumin/Globulin Ratio 1.3 Prealbumin Urine Color Yellow Urine Clarity Cloudy A Urine pH 7.5 Ur Specific [place] 1.024 Urine Protein Trace Urine Glucose (UA) Normal Urine Ketones Trace H Urine Blood Negative Urine Nitrite Negative Urine Bilirubin Negative Urine Urobilinogen Normal Ur Leukocyte Esterase Negative Urine Microscopic RBC 3-5 H Urine Microscopic WBC 0-3 Ur Squamous Epith Cells Many H Urine Bacteria None Seen Hyaline Casts None Seen Ur Culture Indicated? NO Urine Opiates Screen Ur Barbiturates Screen Ur Phencyclidine Scrn Ur Amphetamines Screen U Benzodiazepines Scrn Urine Cocaine Screen U Marijuana (THC) Screen Chlamy pneumoniae PCR Adenovirus (PCR) B. pertussis DNA (PCR) B.parapertussis DNA PCR Coronavirus OC43 (PCR) Coronavirus HKU1 (PCR) Coronavirus 229E (PCR) Coronavirus NL63 (PCR) Human Metapneumovir PCR Influenza A (H1) PCR Influ A (H1N1/) PCR Influenza A (H3) PCR Influenza A Untype (PCR) Influenza Type B (PCR) M.pneumoniae DNA (PCR) Parainfluenza 1 (PCR) Parainfluenza 2 (PCR) Parainfluenza 3 (PCR) Parainfluenza 4 (PCR) RSV (PCR) Entero/Rhino (PCR) 07/20/17 07/20/17 07/20/17 04:16 04:16 16:18 WBC 16.9 H RBC 4.13 Hgb 12.4 Hct 35.9 MCV 86.9 MCH 30.0 MCHC 34.5 RDW 12.8 Plt Count 330 MPV 9.9 Immature Gran % 0.7 Seg Neutrophils % 85.5 Lymphocytes % 10.0 Monocytes % 3.6 Eosinophils % 0.0 Basophils % 0.2 Neutrophils # 14.4 H Lymphocytes # 1.7 Monocytes # 0.6 Eosinophils # 0.0 Basophils # 0.0 Sodium Potassium Chloride Carbon Dioxide BUN Creatinine Est GFR ( Amer) Est GFR (Non-Af Amer) BUN/Creatinine Ratio Glucose POC Glucose Calculated Osmolality Lactic Acid 0.6 Calcium Phosphorus Magnesium Total Bilirubin AST ALT Alkaline Phosphatase Serum Total Protein Albumin Globulin Albumin/Globulin Ratio Prealbumin 24.6 Urine Color Urine Clarity Urine pH Ur Specific [place] Urine Protein Urine Glucose (UA) Urine Ketones Urine Blood Urine Nitrite Urine Bilirubin Urine Urobilinogen Ur Leukocyte Esterase Urine Microscopic RBC Urine Microscopic WBC Ur Squamous Epith Cells Urine Bacteria Hyaline Casts Ur Culture Indicated? Urine Opiates Screen Ur Barbiturates Screen Ur Phencyclidine Scrn Ur Amphetamines Screen U Benzodiazepines Scrn Urine Cocaine Screen U Marijuana (THC) Screen Chlamy pneumoniae PCR Adenovirus (PCR) B. pertussis DNA (PCR) B.parapertussis DNA PCR Coronavirus OC43 (PCR) Coronavirus HKU1 (PCR) Coronavirus 229E (PCR) Coronavirus NL63 (PCR) Human Metapneumovir PCR Influenza A (H1) PCR Influ A (H1N1/09) PCR Influenza A (H3) PCR Influenza A Untype (PCR) Influenza Type B (PCR) M.pneumoniae DNA (PCR) Parainfluenza 1 (PCR) Parainfluenza 2 (PCR) Parainfluenza 3 (PCR) Parainfluenza 4 (PCR) RSV (PCR) Entero/Rhino (PCR) 07/21/17 07/21/17 07/21/17 04:45 04:45 17:27 WBC 11.6 H RBC 3.49 L Hgb 10.3 L D Hct 30.5 L MCV 87.4 MCH 29.5 MCHC 33.8 RDW 13.1 Plt Count 266 MPV 9.6 Immature Gran % 0.3 Seg Neutrophils % 61.2 Lymphocytes % 29.1 Monocytes % 7.5 Eosinophils % 1.6 Basophils % 0.3 Neutrophils # 7.1 Lymphocytes # 3.4 Monocytes # 0.9 Eosinophils # 0.2 Basophils # 0.0 Sodium 136 Potassium 3.6 Chloride 107 Carbon Dioxide 23 BUN 8 Creatinine 0.28 L Est GFR ( Amer) > 60 Est GFR (Non-Af Amer) > 60 BUN/Creatinine Ratio 29 H Glucose 84 POC Glucose Calculated Osmolality 280 Lactic Acid Calcium 8.3 L Phosphorus Magnesium Total Bilirubin 0.4 AST 15 ALT 8 Alkaline Phosphatase 55 Serum Total Protein 6.0 L Albumin 3.5 Globulin 2.5 Albumin/Globulin Ratio 1.4 Prealbumin Urine Color Urine Clarity Urine pH Ur Specific [place] Urine Protein Urine Glucose (UA) Urine Ketones Urine Blood Urine Nitrite Urine Bilirubin Urine Urobilinogen Ur Leukocyte Esterase Urine Microscopic RBC Urine Microscopic WBC Ur Squamous Epith Cells Urine Bacteria Hyaline Casts Ur Culture Indicated? Urine Opiates Screen Ur Barbiturates Screen Ur Phencyclidine Scrn Ur Amphetamines Screen U Benzodiazepines Scrn Urine Cocaine Screen U Marijuana (THC) Screen Chlamy pneumoniae PCR Not Detected Adenovirus (PCR) Not Detected B. pertussis DNA (PCR) Not Detected B.parapertussis DNA PCR Not Detected Coronavirus OC43 (PCR) Not Detected Coronavirus HKU1 (PCR) Not Detected Coronavirus 229E (PCR) Not Detected Coronavirus NL63 (PCR) Not Detected Human Metapneumovir PCR Not Detected Influenza A (H1) PCR Not Detected Influ A (H1N1/09) PCR Not Detected Influenza A (H3) PCR Not Detected Influenza A Untype (PCR) Not Detected Influenza Type B (PCR) Not Detected M.pneumoniae DNA (PCR) Not Detected Parainfluenza 1 (PCR) Not Detected Parainfluenza 2 (PCR) Not Detected Parainfluenza 3 (PCR) Not Detected Parainfluenza 4 (PCR) Not Detected RSV (PCR) Not Detected Entero/Rhino (PCR) Not Detected Labs on day of discharge: Preliminary micro results at discharge 07/20/17 16:21 Blood Culture - Preliminary Peripheral Venipuncture No growth. 07/20/17 16:18 Blood Culture - Preliminary Peripheral Venipuncture No growth. - Impressions ITS Impressions Obstetrics Ultrasound 07/20/17 19:00 IMPRESSION: Single live intrauterine with gestational age of 22 weeks 1 day by current sonographic biometry. The estimated due date is 18 November 2017. Appropriate interval growth has taken place since prior exam. D/ / Violet Pierson MD / Violet Pierson MD Interpreting Provider: Violet Pierson MD Date of admission: 07/19/17 17:16 Primary care physician: PCP NONE Consults: 07/19/17 20:58 Consult to Hospitalist [CONS] Stat Consulting Provider: Hospitalist [place] Reason for Consult: Intractable vomiting Call Completed: Yes 07/19/17 23:06 Consult to Physical Therapy [CONS] Routine Comment: Evaluate, develop and implement POC Reason for Consult: physical deocnditoning OT [Consult to Occupational Therapy] [CONS] Routine Comment: Evaluate, develop and implement POC Reason for Consult: physical deconditioning 07/20/17 03:10 Consult to Watch Assembly Instructor [CONS] Routine Reason for SW Consult: Discharge needs Discharging clinician: Linda Walsh Anticipated date of discharge: 07/22/17 - Patient Status Disposition: Home, Self-Care Condition: Good Functional capacity at discharge: independent ambulation Overall status at discharge: patient is not back to baseline (requesting discharge) - Discharge Instructions Follow Up With: NONE,PCP [Primary Care Provider] - Renny Akins MD [Partnered Physician] - (Please call to schedule appointment [place]) Additional Instructions: LABOR AND DELIVERY DISCHARGE INSTRUCTIONS Signs and Symptoms to be Reported to your Doctor Immediately: * Sudden gush, continuous or intermittent lead of fluid from vagina (note the time of gush and color of fluid) * Onset of bright red vaginal bleeding with or without pain (if you had a vaginal exam during this visit you may notice some dark red spotting. This is normal.) * Lower abdominal cramping or backache that is premenstrual-like feeling. * More than 6 contractions in one hour. * Burning during urination, having to urinate more frequently or pain in your mid-back. * A change in the baby's activity. This could be an increase or decrease in activity. * Severe headache which does not go away with tylenol. * Sudden swelling in the face, hands, arms and/or legs. * Upper abdominal pain - sometimes associated with heartburn or nausea and is not relieved by Maalox, Mylanta or Tums. * Dizziness or blurred vision or visual disturbances (seeing stars/lights). * Kick Counts One hour after a meal, lay down on one side in a quiet place. Count the number of diana the baby moves during an hour. If less than 6 movements, notify your physician. Diet: *Force fluids - 8-10 tall glasses of fluid per day. May include popsicles and jello. 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
[2017-07-22 22:32] VITALS: BP 113/74
[2017-07-24 07:26] LABS: Buprenorphine, Urine <2 ng/mL
== END 2017-07-22 23:18 | disposition home or self-care (01) ==
LOC: 1NENULAB → 3BNU 07-20 02:44
PROVIDERS: ADMIT Obstetrics & Gynecology; ATTEND Obstetrics & Gynecology

== ENCOUNTER → 2017-08-16 21:44 | Observation (INO) ==
--- NOTE | 2017-08-15 04:16 | OB/GYN Progress Note ---
Date of Encounter: 08/15/17 Time of Encounter: 04:14 - Assessment and Plan (1) 26 weeks gestation of Current Visit: Yes Status: Acute (2) Vomiting affecting , antepartum Current Visit: Yes Status: Acute Obtain NST Collect CBC, CMP, UA, UDS LR bolus then 125mL/hr Reglan IV Plan: Discharge home after IV fluid replacement x 2 hours (3) Narcotic dependence Current Visit: Yes Status: Chronic (4) Tobacco abuse Current Visit: Yes Status: Chronic (5) NST (non-stress test) reactive on surveillance Current Visit: Yes Status: Acute Subjective - Subjective Interval history: Ms. Callahan is a at 26 weeks and 2 days who presents to L&D via ambulance with c/o n/v x 2 days. She reports she hasn't been able to keep any food or fluids down during this time as well. Reports she last took her subutex 2 days ago. States her children have had a virus in the past week. Pt endorses good FM and denies LOF, ctx, vaginal bleeding. Denies CP/SOB. Appears to have been more compliant with PNC since previous admission. Antepartum ROS: new complaints Objective - Vital Signs Vital Signs: Intake and Output 08/14/17 08/14/17 08/15/17 15:59 23:59 07:59 Other: Weight 73.482 kg Patient Weight 08/15/17 23:59 Weight 73.482 kg - Exam FHR: auscultation normal FHR comments: Baseline 150 Accelerations present 10x10 Variable decelerations occasional FHR Category I No toco activity Abdomen: Present: normal appearance, soft, gravid Uterus: Present: normal, firm - Labs Labs: CBC CMP UA UDS
[2017-08-15 05:18] LABS: Basophils % 0.1 %; Hematocrit 40.1 % (35.3-44.9); Hemoglobin 13.6 g/dL (11.5-15.4); Immature Granulocytes % 0.5 % (0-4); Lymphocytes # 1.3 K/mcL (0.6-4.6); Lymphocytes % 8.6 %; Mean Corpuscular HGB Conc 33.9 g/dL (31.6-35.5); Mean Corpuscular Hemoglobin 29.9 pg (28.0-33.3); Mean Corpuscular Volume 88.1 fL (83.0-100.0); Mean Platelet Volume 9.9 fL (9.4-12.4); Monocytes # 0.4 K/mcL (0.0-1.3); Monocytes % 2.5 %; Neutrophils # 13.2 K/mcL (1.6-8.9); Platelet Count 307 K/mcL (140-400); Red Blood Count 4.55 M/mcL (3.82-4.97); Red Cell Distribution Width 12.9 % (11.5-14.5); Segmented Neutrophils % 88.3 %
[2017-08-15] MEDS: Ringers Solution, Lactated 1,000 ML IVC SCH (05:18)
[2017-08-15 05:19] LABS: Amphetamine Screen,Urine Negative ng/mL (Cutoff=1000); Barbiturate Screen,Urine Negative ng/mL (Cutoff=200); Benzodiazepines Screen,Urine Negative ng/mL (Cutoff=200); Cannabinoid Screen,Urine Negative ng/mL (Cutoff = 50); Cocaine Screen,Urine Negative ng/mL (Cutoff= 300); Opiate Screen,Urine Negative ng/mL (Cutoff=300); Phencyclidine Screen,Urine Negative ng/mL (Cutoff=25)
[2017-08-15 05:27] LABS: Bilirubin,Urine Negative (Negative); Blood,Urine Negative (Negative); Clarity,Urine Clear (Clear); Color,Urine Dark Yellow (Yellow); Glucose,Urine (UA) Normal (Normal); Ketones,Urine >=160 mg/dL (Negative); Leukocyte Esterase,Urine Negative (Negative); Nitrite,Urine Negative (Negative); Protein,Urine 100 mg/dL (Neg-Trace); Urobilinogen,Urine Normal (Normal)
[2017-08-15 05:30] LABS: Bacteria,Urine None Seen per hpf (None-Few); Squamous Epithelial Cell,Urine Many per lpf (None-Few)
[2017-08-15 05:33] LABS: Alanine Aminotransferase 22 Units/L (7-52); Albumin/Globulin Ratio 1.3 (1.1-2.2); Alkaline Phosphatase 88 Units/L (34-104); Aspartate Amino Transferase 24 Units/L (13-39); BUN/Creatinine Ratio 18 (6-26); Bilirubin,Total 0.6 mg/dL (0.3-1.0); Blood Urea Nitrogen 6 mg/dL (6-20); Calcium 8.9 mg/dL (8.6-10.3); Carbon Dioxide 21 mEq/L (23-29); Chloride 104 mEq/L (98-107); Globulin 3.1 g/dL (2.4-3.5); Glucose 111 mg/dL (70-105); Osmolality,Calculated 282 (280-300); Potassium 3.5 mEq/L (3.5-5.1); Sodium 137 mEq/L (136-145); Total Protein 7.1 g/dL (6.4-8.9); eGFR For African Americans > 60 (> 60); eGFR For Non-African Americans > 60 (> 60)
[2017-08-15] MEDS: Famotidine 20 MG/2 ML VIAL IVP SCH (14:24)
[2017-08-15] MEDS: Metoclopramide 10 MG/2 ML VIAL IVP PRN ×2 (14:27→20:10)
--- NOTE | 2017-08-15 20:49 | OB/GYN Progress Note ---
Date of Encounter: 08/15/17 Time of Encounter: 14:15 - Assessment and Plan (1) 26 weeks gestation of Current Visit: Yes Status: Acute (2) Vomiting affecting , antepartum Current Visit: Yes Status: Acute Will give IV reglan and pepcid, scopalamine patch placed. Pt. continues to use and bolus via zofran pump Maintain IVF Will reevaluate this evening Discussed with patient importance of monitoring, pt still refuses. Do not give subutex per Dr. Akins and send pain mangement urine panel. Plan of care discussed with Dr. Contreras. Subjective - Subjective Interval history: Pt continues to complain of nausea and emesis. Pt states she is so nauseated she cant stand it. Pt states she has had emesis all morning. Weak and unable to get up to restroom per nursing staff. Pt also complains of heartburn and upper abdominal pain. Pt requesting more medication. Pt requesting phenergan and states it is the only medication that allows her to feel any relief. Pt reports good movement, denies contractions, vaginal bleeding or leaking of fluid. Pt refusing monitoring. Pt states she has been so nauseated she has not even tried to take her subutex. Last dose Sunday night Antepartum ROS: movement normal, no loss of fluid, no vaginal bleeding, no contractions Objective - Vital Signs Vital Signs: Intake and Output 08/15/17 08/15/17 08/15/17 07:59 15:59 23:59 Other: Weight 73.482 kg Patient Weight 08/15/17 23:59 Weight 73.482 kg - Exam FHR comments: Pt refused all monitoring. but reports adequate movement. Auscultation: bilateral: normal Abdomen: Present: soft (no tenderness to palpation), gravid - Labs Labs: Abnormal lab results WBC 14.9 K/mcL (4.3-11.1) H 08/15/17 04:57 Neutrophils # 13.2 K/mcL (1.6-8.9) H 08/15/17 04:57 Carbon Dioxide 21 mEq/L (23-29) L 08/15/17 04:57 Creatinine 0.34 mg/dL (0.60-1.20) L 08/15/17 04:57 Glucose 111 mg/dL (70-105) H 08/15/17 04:57 Ur Specific [place] 1.030 (1.010-1.025) H 08/15/17 04:50 Urine Protein 100 mg/dL (Neg-Trace) H 08/15/17 04:50 Urine Ketones >=160 mg/dL (Negative) H 08/15/17 04:50 Urine Microscopic WBC 3-5 per hpf (0-3) H 08/15/17 04:50 Ur Squamous Epith Cells Many per lpf (None-Few) H 08/15/17 04:50
--- NOTE | 2017-08-15 23:22 | OB/GYN History & Physical ---
Date of Encounter: 08/15/17 Time of Encounter: 23:17 Assessment and Plan (1) 26 weeks gestation of Current visit: Yes Status: Acute (2) Vomiting affecting , antepartum Current visit: Yes Status: Acute Changed to admission Will give one time dose of benadryl after reassuring monitoring tracing Dulcolax suppository ordered, but patient refuses to take, discuss cannot resolve nausea without resolving possible underlying causes Continue all other antiemetic medications as ordered. Plan of care discussed with Dr. Contreras History of Present Illness Chief complaint: Nausea HPI: Per admission note: Ms. Callahan is a 27 year old female at 26 weeks and 2 days who presents to L&D via ambulance with c/o n/v x 2 days. She reports she hasn't been able to keep any food or fluids down during this time as well. Reports she last took her subutex 2 days ago. States her children have had a virus in the past week. Pt endorses good FM and denies LOF, ctx, vaginal bleeding. Since admission pt has continued to have complaints of nausea with small emesis. Failed PO challenge of water and goldfish crackers. Pt states she last took Subutex on Sunday evening, did not attempt to take it Sunday or Sunday due to nausea. Pt complains of midepigastric pain. Now tender to palpation. Had gallbladder removed a few years ago. Pt states she has not had a bowel movement in over a week and a half. Pt very upset she is not being given phenergan. Pt was seen sleeping multiple times this afternoon after starting scoplamine, pepcid and reglan. Pt requesting benadryl for sleep. Pt refusing monitoring at this time. Past Med Surg Social Fam HX - Past Medical History Medical history: asthma Psychiatric history: anxiety - Past Surgical History Surgical History: cholecystectomy - Social History Smoking Status: Current every day smoker Packs per day: 1 Smokeless Tobacco Status: No Alcohol use: none Drug use: none, prescription drug abuse - Family History Mother Family Member Ethnicity: Non- Living Status: Still Living Hx Family Cardiac Disorders: No Hx Family Respiratory Disorders: No Hx Family Cancer: No Hx Family GI Disorders: No Hx Family Genitourinary Disorders: No Hx Family Endocrine Disorder: No Hx Family Musculoskeletal Disorders: No Hx Family Neuromuscular Disorders: No Hx Family Neurologic Disorders: No Hx Family HEENT Disorders: No Hx Family Autoimmune Disorders: No Hx Family Reproductive Disorders: No Hx Family Psychosocial Disorders: No Hx Family Medical Disorders: No Obstetrical History - Pregnancies : 5 Para: 4 Term: 0 : 0 Ab's: 0 Livin Medications and Allergies Vit #116/Iron/FA/Dha [ Formula-Dha Softgel] 1 each PO DAILY 08/26 [History] DiphenhydraMINE [Benadryl] 25 mg PO Q8HR #30 capsule 06/22/17 [Rx] Buprenorphine HCl [Subutex] 12 mg SL DAILY 07/19/17 [History] Non-Formulary Medication 1 each SQ AD 07/19/17 [History] Promethazine [Phenergan] 25 mg PO DAILY PRN 07/19/17 [History] Acetaminophen [Tylenol] 650 mg PO Q6HR PRN tablet 07/22/17 [Rx] 3 Allergy/AdvReac Type Severity Reaction Status Date / Time cephalexin [From Keflex] Allergy Anaphylaxis Verified 08/15/17 03:53 Penicillins [PCN] Allergy Anaphylaxis Verified 08/15/17 03:53 tramadol [From Ultram] Allergy Anaphylaxis Verified 08/15/17 03:53 Exam - Constitutional Constitutional: well developed, no acute distress, average body habitus - Lungs Respiratory exam: CTAB - Cardiovascular Cardiovascular exam: RRR - Abdomen Abdomen: Present: gravid, non tender, bowel sounds hypoactive Abdomen detail: left lower quadrant: tenderness (Left side of mid epigastric) - Extremities Extremities exam: normal capillary refill, normal inspection Results Result Diagrams: 08/15/17 04:57 08/15/17 04:57 Abnormal lab results WBC 14.9 K/mcL (4.3-11.1) H 08/15/17 04:57 Neutrophils # 13.2 K/mcL (1.6-8.9) H 08/15/17 04:57 Carbon Dioxide 21 mEq/L (23-29) L 08/15/17 04:57 Creatinine 0.34 mg/dL (0.60-1.20) L 08/15/17 04:57 Glucose 111 mg/dL (70-105) H 08/15/17 04:57 Ur Specific [place] 1.030 (1.010-1.025) H 08/15/17 04:50 Urine Protein 100 mg/dL (Neg-Trace) H 08/15/17 04:50 Urine Ketones >=160 mg/dL (Negative) H 08/15/17 04:50 Urine Microscopic WBC 3-5 per hpf (0-3) H 08/15/17 04:50 Ur Squamous Epith Cells Many per lpf (None-Few) H 08/15/17 04:50 All other labs normal.
[2017-08-16] MEDS: Ringers Solution, Lactated 1,000 ML IVC SCH (00:36)
[2017-08-16] MEDS: Metoclopramide 10 MG/2 ML VIAL IVP PRN ×3 (02:13→17:53)
[2017-08-16 03:55] LABS: Basophils % 0.2 %; Eosinophils % 0.1 %; Immature Granulocytes % 0.6 % (0-4); Lymphocytes % 13.1 %; Mean Corpuscular HGB Conc 34.4 g/dL (31.6-35.5); Mean Corpuscular Hemoglobin 30.1 pg (28.0-33.3); Mean Corpuscular Volume 87.4 fL (83.0-100.0); Mean Platelet Volume 9.8 fL (9.4-12.4); Monocytes # 0.9 K/mcL (0.0-1.3); Neutrophils # 12.3 K/mcL (1.6-8.9); Platelet Count 266 K/mcL (140-400); Red Blood Count 3.89 M/mcL (3.82-4.97)
[2017-08-16 03:59] LABS: Hemoglobin 11.7 g/dL (11.5-15.4)
[2017-08-16 04:14] LABS: Alanine Aminotransferase 76 Units/L (7-52); Albumin 3.7 g/dL (3.5-5.7); Albumin/Globulin Ratio 1.5 (1.1-2.2); Alkaline Phosphatase 74 Units/L (34-104); Aspartate Amino Transferase 71 Units/L (13-39); BUN/Creatinine Ratio 14 (6-26); Bilirubin,Total 0.8 mg/dL (0.3-1.0); Blood Urea Nitrogen 4 mg/dL (6-20); Calcium 8.5 mg/dL (8.6-10.3); Carbon Dioxide 20 mEq/L (23-29); Chloride 104 mEq/L (98-107); Globulin 2.4 g/dL (2.4-3.5); Glucose 100 mg/dL (70-105); Osmolality,Calculated 277 (280-300); Potassium 3.4 mEq/L (3.5-5.1); Sodium 135 mEq/L (136-145); Total Protein 6.1 g/dL (6.4-8.9); eGFR For African Americans > 60 (> 60); eGFR For Non-African Americans > 60 (> 60)
[2017-08-16] MEDS: Famotidine 20 MG/2 ML VIAL IVP SCH ×3 (05:38→22:11)
--- NOTE | 2017-08-16 05:55 | OB/GYN Progress Note ---
Date of Encounter: 08/16/17 Time of Encounter: 05:46 - Assessment and Plan (1) 26 weeks gestation of Current Visit: Yes Status: Acute (2) Vomiting affecting , antepartum Current Visit: Yes Status: Acute Pt has has 4 emesis this shift, 3 of those emesis since 0200. Discussed with patient need to treat underlying cause of nausea, instead of treating the nausea symptom. Patient states all of her problems be resolved if we would only treat her nausea. Patient again demanding Phenergan, explained to patient that we will not be giving her Phenergan for her nausea, and patient is arty on multiple antiemetics and sedating medication such as Benadryl. Patient finally agreed to take Dulcolax suppository, if provider agreed to leave room. Second dose of IV benadryl given after suppository. (3) Abnormal LFTs Current Visit: No Status: Acute (4) Elevated liver enzymes Current Visit: No Status: Acute Elevated liver enzymes noticed on AM CMP, liver enzymes have not previously been elevated during other admissions. Blood pressures within normal limits. Attempted to obtain UA via voiding and then offered straight catheter. Patient refuses both. UA and protein creatinine ratio ordered to rule out PIH. Once PIH ruled out we will obtain medicine consult for elevated liver enzymes Subjective - Subjective Interval history: Patient continues to be very agitated and upset, with complaints of abdominal discomfort and nausea and emesis. Patient states she does not think this staff want to help her, and continues to make comments that we just want to watch her suffer. She has made comments that she would "rather kill herself", "she wants to diet and cannot do this anymore", "she wants the effing baby out". Patient states she did go to the bathroom and forced herself with manual manipulation to have a bowel movement. RN states there were 8 small buckeye sized stool balls in toilet, very hard in appearance. Has continued to refuse suppostory, and yells at this provider she just wants her nausea to go away. Refuses monitoring for AM NST, states the belts hurt her and we are only concerned about the baby. Antepartum ROS: movement normal, no loss of fluid, no vaginal bleeding, no contractions Objective - Vital Signs Vital Signs: Intake and Output 08/15/17 08/15/17 08/16/17 15:59 23:59 07:59 Intake Total 1000 / 1000 Balance 1000 / 1000 Intake: IV Fluids 1000 / 1000 Lactated Ringers 1,000 ML @ 125 1000 / 1000 mls/hr IVC .Q8H LATESHA Rx#: [id number] - Exam FHR comments: Pt refused adequate NST, but heart tones are WNL on tracing obtained. Baseline 145 Abdomen: Present: soft, gravid (refuses further abdominal assessment. ) - Labs Labs: Abnormal lab results WBC 15.4 K/mcL (4.3-11.1) H 08/16/17 03:34 Hct 34.0 % (35.3-44.9) L 08/16/17 03:34 Neutrophils # 12.3 K/mcL (1.6-8.9) H 08/16/17 03:34 Sodium 135 mEq/L (136-145) L 08/16/17 03:34 Potassium 3.4 mEq/L (3.5-5.1) L 08/16/17 03:34 Carbon Dioxide 20 mEq/L (23-29) L 08/16/17 03:34 BUN 4 mg/dL (6-20) L 08/16/17 03:34 Creatinine 0.28 mg/dL (0.60-1.20) L 08/16/17 03:34 Calculated Osmolality 277 (280-300) L 08/16/17 03:34 Calcium 8.5 mg/dL (8.6-10.3) L 08/16/17 03:34 AST 71 Units/L (13-39) H 08/16/17 03:34 ALT 76 Units/L (7-52) H 08/16/17 03:34 Serum Total Protein 6.1 g/dL (6.4-8.9) L 08/16/17 03:34 Ur Specific [place] 1.030 (1.010-1.025) H 08/15/17 04:50 Urine Protein 100 mg/dL (Neg-Trace) H 08/15/17 04:50 Urine Ketones >=160 mg/dL (Negative) H 08/15/17 04:50 Urine Microscopic WBC 3-5 per hpf (0-3) H 08/15/17 04:50 Ur Squamous Epith Cells Many per lpf (None-Few) H 08/15/17 04:50
[2017-08-16 06:57] LABS: Protein/Creatinine Ratio,Urine 0.67 mg/mg (0.00-0.20)
--- NOTE | 2017-08-16 11:45 | OB/GYN Progress Note ---
Date of Encounter: 08/16/17 Time of Encounter: 11:38 - Assessment and Plan (1) Nausea and vomiting during Current Visit: Yes Status: Acute Pt repeatedly requests Phenergan; currently on ondansetron pump Has associated epigastric pain; 3 years s/p cholecystectomy and not on GERD meds Suspect concurrent PUD; fecal h. pylori pending specimen collection Ordered Omeprazole and Carafate Consider quad therapy / antibiotics if h. pylori positive (2) Narcotic dependence Current Visit: Yes Status: Chronic Pt admits has been taking Subutex in excess of dosing (2 mg vs prescribed 1.5) and last took it on Sunday. She has admitted that she ran out of her medicine. (3) Tobacco abuse Current Visit: Yes Status: Chronic (4) 26 weeks gestation of Current Visit: Yes Status: Acute Subjective - Subjective Principal diagnosis: Nausea, vomiting, epigastric pain Interval history: Continues to have symptoms of nausea and vomiting. Somnolent at time of encounter somewhat limiting to history. Pt describes epigastric pain stating it has been present for 2-3 days; describes as sharp/burning and constant. She does not take any acid-reducing medications. Denies acute fever, hematemesis, diarrhea, melena, hematochezia, dysuria, vaginal bleeding, or other acute symptoms. Does have history of cholecystectomy 3 years ago. During overnight course, patient became upset and expressed suicidal ideation to nursing staff. Personal belongings were removed from patient proximity and patient placed on hold with bedside sitter. Psychiatry consult currently pending. Objective - Vital Signs Vital Signs: Intake and Output 08/15/17 08/16/17 08/16/17 23:59 07:59 15:59 Intake Total 1850 / 1850 Output Total 500 / 500 750 / 750 Balance -500 / -500 1100 / 1100 Intake: Other 1850 / 1850 Output: Urine 400 / 400 400 / 400 Emesis 100 / 100 350 / 350 Other: # Voids 1 - Exam Auscultation: bilateral: normal Abdomen: Present: normal appearance, soft, gravid, tenderness (epigastric region with negative Mcmahon sign) Uterus: Present: normal, firm - Labs Labs: Abnormal lab results WBC 15.4 K/mcL (4.3-11.1) H 08/16/17 03:34 Hct 34.0 % (35.3-44.9) L 08/16/17 03:34 Neutrophils # 12.3 K/mcL (1.6-8.9) H 08/16/17 03:34 Sodium 135 mEq/L (136-145) L 08/16/17 03:34 Potassium 3.4 mEq/L (3.5-5.1) L 08/16/17 03:34 Carbon Dioxide 20 mEq/L (23-29) L 08/16/17 03:34 BUN 4 mg/dL (6-20) L 08/16/17 03:34 Creatinine 0.28 mg/dL (0.60-1.20) L 08/16/17 03:34 Calculated Osmolality 277 (280-300) L 08/16/17 03:34 Calcium 8.5 mg/dL (8.6-10.3) L 08/16/17 03:34 AST 71 Units/L (13-39) H 08/16/17 03:34 ALT 76 Units/L (7-52) H 08/16/17 03:34 Serum Total Protein 6.1 g/dL (6.4-8.9) L 08/16/17 03:34 Ur Specific [place] 1.030 (1.010-1.025) H 08/15/17 04:50 Urine Protein 100 mg/dL (Neg-Trace) H 08/15/17 04:50 Urine Ketones >=160 mg/dL (Negative) H 08/15/17 04:50 Urine Microscopic WBC 3-5 per hpf (0-3) H 08/15/17 04:50 Ur Squamous Epith Cells Many per lpf (None-Few) H 08/15/17 04:50 Protein/Creatinin Ratio 0.67 mg/mg (0.00-0.20) H 08/16/17 06:30 Urine Total Protein 40 mg/dL (1-14) H 08/16/17 06:30
[2017-08-16] MEDS: Sucralfate 1 GM TABLET PO SCH ×2 (12:21→22:11)
--- NOTE | 2017-08-16 13:25 | Consult Note ---
Date of Encounter: 08/16/17 Time of Encounter: 12:55 Assessment & Recommendation (1) Opiate dependence Current visit: Yes Status: Chronic Assessment & Recommendation: Patient has not used subtex since last 2-3 days secondary to her nausea and vomiting. she is having some withdrawl ,need to start her medication . Qualifiers: Substance use status: uncomplicated Qualified Code(s): F11.20 - Opioid dependence, uncomplicated (2) Anxiety Current visit: Yes Status: Chronic History of Present Illness Patient: new to practice Requesting Physician: Lynette Meneses Reason for consult: suicidal ideations History of present illness: Ms. Callahan is a 27 year old female consulted for suicidal ideations , she is 26 weeks with his of anxiety and opiate use on subetex. she came to ER for nausea , vomiting and unable to keep food or fluids down and her children had stomach virus . she stated I just want this pain to stop. at present is restless, anxious and somewhat non cooperative , she was able to give history states has been feeling very uncomfortable and feels like withdrawing , she has not had her subetex 12 mg for 2 days and now having stomach cramps ,anxiety , she denies any depressive s/s, denies any suicidal ideation or harm to self/or baby. states i just said i wanted to because of pain. she has h/o psychiatric treatment in past and has taken medications for depression and anxiety when 15 years old. she lives by herself and her 4 children , her father is supportive. she has been on subtex thru out her . she states had refused monitoring as she is in pain and it hurts , once her pain better she will allow it. A/P OPIATE DEP ON SUBETEX. ANXIETY DISORDER . Will recomend to start Subetex , the dose 12 mg she was taking per her home medication , which will help her discomfort and anxiety. Patient at present not in imenent danger to self/others. will sign out Thank you for consult. CC: Lynette Meneses Past Med Surg Social Fam HX - Past Medical History Medical history: asthma - Past Psychiatric History Psychiatric history: Reports: anxiety, depression Family psychiatric history: Unknown Family History of Suicide: Unknown - Past Surgical History Surgical History: cholecystectomy - Social History Smoking Status: Current every day smoker Smokeless Tobacco Status: No Alcohol use: none Drug use: none, prescription drug abuse - Family History Mother Family Member Ethnicity: Non- Living Status: Still Living Hx Family Cardiac Disorders: No Hx Family Respiratory Disorders: No Hx Family Cancer: No Hx Family GI Disorders: No Hx Family Genitourinary Disorders: No Hx Family Endocrine Disorder: No Hx Family Musculoskeletal Disorders: No Hx Family Neuromuscular Disorders: No Hx Family Neurologic Disorders: No Hx Family HEENT Disorders: No Hx Family Autoimmune Disorders: No Hx Family Reproductive Disorders: No Hx Family Psychosocial Disorders: No Hx Family Medical Disorders: No Medications & Allergies Vit #116/Iron/FA/Dha [ Formula-Dha Softgel] 1 each PO DAILY 08/26 [History] DiphenhydraMINE [Benadryl] 25 mg PO Q8HR #30 capsule 06/22/17 [Rx] Buprenorphine HCl [Subutex] 12 mg SL DAILY 07/19/17 [History] Non-Formulary Medication 1 each SQ AD 07/19/17 [History] Promethazine [Phenergan] 25 mg PO DAILY PRN 07/19/17 [History] Acetaminophen [Tylenol] 650 mg PO Q6HR PRN tablet 07/22/17 [Rx] 3 Allergy/AdvReac Type Severity Reaction Status Date / Time cephalexin [From Keflex] Allergy Anaphylaxis Verified 08/15/17 03:53 Penicillins [PCN] Allergy Anaphylaxis Verified 08/15/17 03:53 tramadol [From Ultram] Allergy Anaphylaxis Verified 08/15/17 03:53 Review of Systems Psychiatric: Reports: anxiety Mental Status Exam Patient orientation: Yes Person, Yes Place Level of alertness: Sedated Patient appearance: Appropriate Behavior: anxious, restless Psychomotor activity: Increased Eye contact: Minimal Contact Mood description: Anxious Affect description: anxious Speech pattern: Coherent Thought process: Intact Thought content: Yes Intact Memory description: Grossly Intact Intelligence estimate: Average Judgment: Fair Insight: Partial Results - Labs Labs: Laboratory Last Values WBC 15.4 K/mcL (4.3-11.1) H 08/16/17 03:34 RBC 3.89 M/mcL (3.82-4.97) 08/16/17 03:34 Hgb 11.7 g/dL (11.5-15.4) D 08/16/17 03:34 Hct 34.0 % (35.3-44.9) L 08/16/17 03:34 MCV 87.4 fL (83.0-100.0) 08/16/17 03:34 MCH 30.1 pg (28.0-33.3) 08/16/17 03:34 MCHC 34.4 g/dL (31.6-35.5) 08/16/17 03:34 RDW 13.0 % (11.5-14.5) 08/16/17 03:34 Plt Count 266 K/mcL (140-400) 08/16/17 03:34 MPV 9.8 fL (9.4-12.4) 08/16/17 03:34 Immature Gran % 0.6 % (0-4) 08/16/17 03:34 Seg Neutrophils % 80.0 % 08/16/17 03:34 Lymphocytes % 13.1 % 08/16/17 03:34 Monocytes % 6.0 % 08/16/17 03:34 Eosinophils % 0.1 % 08/16/17 03:34 Basophils % 0.2 % 08/16/17 03:34 Neutrophils # 12.3 K/mcL (1.6-8.9) H 08/16/17 03:34 Lymphocytes # 2.0 K/mcL (0.6-4.6) 08/16/17 03:34 Monocytes # 0.9 K/mcL (0.0-1.3) 08/16/17 03:34 Eosinophils # 0.0 K/mcL (0.0-0.6) 08/16/17 03:34 Basophils # 0.0 K/mcL (0.0-0.2) 08/16/17 03:34 Sodium 135 mEq/L (136-145) L 08/16/17 03:34 Potassium 3.4 mEq/L (3.5-5.1) L 08/16/17 03:34 Chloride 104 mEq/L (98-107) 08/16/17 03:34 Carbon Dioxide 20 mEq/L (23-29) L 08/16/17 03:34 BUN 4 mg/dL (6-20) L 08/16/17 03:34 Creatinine 0.28 mg/dL (0.60-1.20) L 08/16/17 03:34 Est GFR ( Amer) > 60 (> 60) 08/16/17 03:34 Est GFR (Non-Af Amer) > 60 (> 60) 08/16/17 03:34 BUN/Creatinine Ratio 14 (6-26) 08/16/17 03:34 Glucose 100 mg/dL (70-105) 08/16/17 03:34 Calculated Osmolality 277 (280-300) L 08/16/17 03:34 Calcium 8.5 mg/dL (8.6-10.3) L 08/16/17 03:34 Total Bilirubin 0.8 mg/dL (0.3-1.0) 08/16/17 03:34 AST 71 Units/L (13-39) H 08/16/17 03:34 ALT 76 Units/L (7-52) H 08/16/17 03:34 Alkaline Phosphatase 74 Units/L (34-104) 08/16/17 03:34 Serum Total Protein 6.1 g/dL (6.4-8.9) L 08/16/17 03:34 Albumin 3.7 g/dL (3.5-5.7) 08/16/17 03:34 Globulin 2.4 g/dL (2.4-3.5) 08/16/17 03:34 Albumin/Globulin Ratio 1.5 (1.1-2.2) 08/16/17 03:34 Urine Color Dark Yellow (Yellow) 08/15/17 04:50 Urine Clarity Clear (Clear) 08/15/17 04:50 Urine pH 6.0 pH Units (5.0-8.0) 08/15/17 04:50 Ur Specific [place] 1.030 (1.010-1.025) H 08/15/17 04:50 Urine Protein 100 mg/dL (Neg-Trace) H 08/15/17 04:50 Urine Glucose (UA) Normal mg/dL (Normal) 08/15/17 04:50 Urine Ketones >=160 mg/dL (Negative) H 08/15/17 04:50 Urine Blood Negative (Negative) 08/15/17 04:50 Urine Nitrite Negative (Negative) 08/15/17 04:50 Urine Bilirubin Negative (Negative) 08/15/17 04:50 Urine Urobilinogen Normal mg/dL (Normal) 08/15/17 04:50 Ur Leukocyte Esterase Negative (Negative) 08/15/17 04:50 Urine Microscopic RBC Test Not Performed 08/15/17 04:50 Urine Microscopic WBC 3-5 per hpf (0-3) H 08/15/17 04:50 Ur Squamous Epith Cells Many per lpf (None-Few) H 08/15/17 04:50 Urine Bacteria None Seen per hpf (None-Few) 08/15/17 04:50 Hyaline Casts Test Not Performed 08/15/17 04:50 Urine Yeast Test Not Performed 08/15/17 04:50 Ur Culture Indicated? NO (NO) 08/15/17 04:50 Urine Creatinine 60 mg/dL 08/16/17 06:30 Protein/Creatinin Ratio 0.67 mg/mg (0.00-0.20) H 08/16/17 06:30 Urine Total Protein 40 mg/dL (1-14) H 08/16/17 06:30 Urine Opiates Screen Negative ng/mL (Ckgtsa=511) 08/15/17 04:50 Ur Barbiturates Screen Negative ng/mL (Cqubtb=834) 08/15/17 04:50 Ur Phencyclidine Scrn Negative ng/mL (Cutoff=25) 08/15/17 04:50 Ur Amphetamines Screen Negative ng/mL (Tlcrnq=2872) 08/15/17 04:50 U Benzodiazepines Scrn Negative ng/mL (Qglxvy=584) 08/15/17 04:50 Urine Cocaine Screen Negative ng/mL (Cutoff= 300) 08/15/17 04:50 U Marijuana (THC) Screen Negative ng/mL (Cutoff = 50) 08/15/17 04:50 Consult Discharge Plan - Plan Referrals: NONE,PCP [Primary Care Provider] -
[2017-08-16 15:57] LABS: Alanine Aminotransferase 128 Units/L (7-52); Aspartate Amino Transferase 107 Units/L (13-39)
[2017-08-16 19:00] LABS: Acetaminophen < 1.0 mcg/mL (10-30); Amylase 27 Units/L (29-103); Lipase 18 Units/L (11-82)
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
[~2017-08-16 21:44] MED LIST: Bisacodyl 10 MG RECTAL SUPPOSITORY RC ONE; D5% in Lactated Ringers 1,000 ML IVC ONE; D5% in Lactated Ringers 1,000 ML IVC SCH; Famotidine 20 MG/2 ML VIAL IVP SCH; Metoclopramide 10 MG/2 ML VIAL IVP ONE; Ondansetron 4 MG/2 ML VIAL IVP ONE; Pyridoxine (B-6) 50 MG in Ringers Solution, Lactated 1,000 ML IVP SCH; Ringers Solution, Lactated 1,000 ML IVC ONE; Ringers Solution, Lactated 1,000 ML ONE; Scopolamine Patch 1.5 MG PATCH.TD72 TD ONE; ZOFRAN PUMP SQ SCH
--- NOTE | 2017-08-18 12:29 | Electrocardiograph Report ---
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
== END | disposition short-term general hospital (02) ==
LOC: 1NENULAB
PROVIDERS: ADMIT Advanced Practice Midwife; ATTEND Advanced Practice Midwife

== ENCOUNTER 2017-10-23 01:26 | Observation (INO) ==
[2017-10-23 00:39] LABS: Basophils % 0.3 %; Eosinophils # 0.6 K/mcL (0.0-0.6); Eosinophils % 4.8 %; Hematocrit 30.9 % (35.3-44.9); Immature Granulocytes % 0.3 % (0-4); Lymphocytes # 2.6 K/mcL (0.6-4.6); Lymphocytes % 22.1 %; Mean Corpuscular HGB Conc 35.6 g/dL (31.6-35.5); Mean Corpuscular Hemoglobin 31.5 pg (28.0-33.3); Mean Corpuscular Volume 88.5 fL (83.0-100.0); Mean Platelet Volume 10.3 fL (9.4-12.4); Monocytes # 0.7 K/mcL (0.0-1.3); Monocytes % 6.1 %; Neutrophils # 7.8 K/mcL (1.6-8.9); Platelet Count 185 K/mcL (140-400); Red Blood Count 3.49 M/mcL (3.82-4.97); Red Cell Distribution Width 12.6 % (11.5-14.5); Segmented Neutrophils % 66.4 %
[2017-10-23 00:40] LABS: Bilirubin,Urine Small (Negative); Blood,Urine Negative (Negative); Clarity,Urine Clear (Clear); Color,Urine Dark Yellow (Yellow); Glucose,Urine (UA) Normal (Normal); Ketones,Urine Negative (Negative); Leukocyte Esterase,Urine Negative (Negative); Nitrite,Urine Negative (Negative); PH,Urine 5.5 pH Units (5.0-8.0); Protein,Urine 30 mg/dL (Neg-Trace); Specific Gravity,Urine > 1.030 (1.010-1.025); Urobilinogen,Urine Normal (Normal)
[2017-10-23 00:42] LABS: Bacteria,Urine None Seen per hpf (None-Few); Hyaline Casts,Urine None Seen per lpf (None-Few); Squamous Epithelial Cell,Urine Many per lpf (None-Few)
[2017-10-23 00:58] LABS: Amphetamine Screen,Urine Negative ng/mL (Cutoff=1000); Barbiturate Screen,Urine Negative ng/mL (Cutoff=200); Benzodiazepines Screen,Urine Negative ng/mL (Cutoff=200); Cannabinoid Screen,Urine Positive ng/mL (Cutoff = 50); Cocaine Screen,Urine Negative ng/mL (Cutoff= 300); Creatinine,Urine 133 mg/dL; Opiate Screen,Urine Negative ng/mL (Cutoff=300); Phencyclidine Screen,Urine Negative ng/mL (Cutoff=25)
[2017-10-23 00:59] LABS: Alanine Aminotransferase 6 Units/L (7-52); Aspartate Amino Transferase 10 Units/L (13-39); BUN/Creatinine Ratio 32 (6-26); Blood Urea Nitrogen 11 mg/dL (6-20); Lactate Dehydrogenase 124 Units/L (140-271); eGFR For African Americans > 60 (> 60); eGFR For Non-African Americans > 60 (> 60)
--- NOTE | 2017-10-23 01:18 | OB Labor Progress Note ---
Date of Encounter: 10/23/17 Time of Encounter: 01:16 Labor Progress Note - Subjective Subjective: Patient is very uncomfortable with epidural. Requesting a bolus. - Cervix Cervix: 7/60/-2 - Heart Tones Heart Tones: Baseline 125 Moderate variability Accelerations present 15 x 15 Few variable decelerations FHR category I - [place]: Contractions every 3-4 minutes and palpate moderate - Interventions Interventions: SVE Peanut ball - Plan Plan: Continue expectant management Continue Pitocin augmentation Frequent position changes with peanutball Anticipate vaginal delivery
--- NOTE | 2017-10-23 02:10 | OB/GYN History & Physical ---
Date of Encounter: 10/23/17 Time of Encounter: 01:54 Assessment and Plan (1) 36 weeks gestation of Current visit: Yes Status: Acute Follow up as scheduled (2) Proteinuria affecting in third trimester Current visit: Yes Status: Acute Upon reviewing labs with patient the suggestion was made to her for possible induction. This was very upsetting to her and she began crying hysterically and threatening the elementary summer school teacher. She stated she was going to "punch you in the face." I offered her the other physician who was on this evening and she stated she would see him. After consulting with Dr. Vazquez, the decision was made to offer her admission for 24-hour urine studies, which she refused. She was then offered to take the urine studies with her, which she accepted. At this time she was very upset, but agreeable to leave. She repeatedly asked, "Am I able to come back here to have my baby?" and she was repeatedly assured that she would be able to return at any time for any concern. She asked if she could come back "in a few hours" and was advised to complete her 24 hour urine studies but assured that she could come back at anytime. Precautions were discussed with her and she left without incident accompanied by her mother. (3) Narcotic dependence Current visit: No Status: Chronic (4) Opiate dependence Current visit: No Status: Chronic Qualifiers: Substance use status: uncomplicated Qualified Code(s): F11.20 - Opioid dependence, uncomplicated (5) Tobacco abuse Current visit: No Status: Chronic History of Present Illness Chief complaint: PIH evaluation HPI: Ms. Callahan is a 27 year old female , with an estimated date of of 11/19/17 at 36 weeks 1 days gestation dated by early ultrasound. She presents for PI evaluation. She was instructed to come from her clinic appointment today after a short trip home to gather some things. However, she did not arrive onto the unit until 9 hours after her clinic appointment. She denies contractions, LOF, vaginal bleeding and reports positive movement. She reports MCCOY and blurry vision intermittently, but none presently. Her course has been complicated by a polysubstance abuse including heroin and marijuana. Since the beginning of her she has entered into the centering group and has been on Subutex. However, she has not taken her Subutex as directed throughout the entire by her own admission. She reports she has not recently used any drugs. Past Med Surg Social Fam HX - Past Medical History Medical history: asthma Psychiatric history: anxiety, depression - Past Surgical History Surgical History: cholecystectomy - Social History Smoking Status: Current every day smoker Packs per day: 1/2 pack daily Smokeless Tobacco Status: No Alcohol use: none Drug use: none, marijuana, prescription drug abuse - Family History Mother Family Member Ethnicity: Non- Living Status: Still Living Hx Family Cardiac Disorders: No Hx Family Respiratory Disorders: No Hx Family Cancer: No Hx Family GI Disorders: No Hx Family Genitourinary Disorders: No Hx Family Endocrine Disorder: No Hx Family Musculoskeletal Disorders: No Hx Family Neuromuscular Disorders: No Hx Family Neurologic Disorders: No Hx Family HEENT Disorders: No Hx Family Autoimmune Disorders: No Hx Family Reproductive Disorders: No Hx Family Psychosocial Disorders: No Hx Family Medical Disorders: No Obstetrical History - Pregnancies : 5 Para: 4 Term: 4 : 0 Ab's: 0 Livin Medications and Allergies Vit #116/Iron/FA/Dha [ Formula-Dha Softgel] 1 each PO DAILY 08/26 [History] DiphenhydraMINE [Benadryl] 25 mg PO Q8HR #30 capsule 06/22/17 [Rx] Buprenorphine HCl [Subutex] 12 mg SL DAILY 07/19/17 [History] Non-Formulary Medication 1 each SQ AD 07/19/17 [History] Patient Taking Own Medication 0 each SQ Q48H each 08/16/17 [Rx] Acetaminophen [Tylenol] 650 mg PO Q6HR PRN 10/23/17 [History] Albuterol Sulfate [Albuterol Inhaler] 1 puff .ROUTE PRN PRN 10/23/17 [History] Famotidine [Pepcid] 1 tab PO PRN PRN 10/23/17 [History] Ferrous Sulfate [Iron] 1 tab PO BID 10/23/17 [History] Metoclopramide [Reglan] 10 mg PO PRN PRN 10/23/17 [History] Sucralfate [Carafate] 1 gm PO PRN PRN 10/23/17 [History] 3 Allergy/AdvReac Type Severity Reaction Status Date / Time cephalexin [From Keflex] Allergy Anaphylaxis Verified 10/23/17 00:31 Penicillins [PCN] Allergy Anaphylaxis Verified 10/23/17 00:31 tramadol [From Ultram] Allergy Anaphylaxis Verified 10/23/17 00:31 Review of System OB All systems PM: reviewed and no additional remarkable complaints except as stated Exam - Constitutional Constitutional: well developed, well nourished, no acute distress, average body habitus - HEENT HEENT: Normocephaly, Mucus Membranes Moist - Neck Neck exam: full ROM - Lungs Respiratory exam: CTAB - Cardiovascular Cardiovascular exam: RRR, +S1, +S2 - Abdomen Abdomen: Present: bowel sounds normal, gravid, non tender - Extremities Extremities exam: normal inspection, radial pulses palpable and symmetrical - Uterus Uterus exam: Present: normal size, normal contour Results Result Diagrams: 10/23/17 00:20 10/23/17 00:20 Abnormal lab results WBC 11.7 K/mcL (4.3-11.1) H 10/23/17 00:20 RBC 3.49 M/mcL (3.82-4.97) L 10/23/17 00:20 Hgb 11.0 g/dL (11.5-15.4) L 10/23/17 00:20 Hct 30.9 % (35.3-44.9) L 10/23/17 00:20 MCHC 35.6 g/dL (31.6-35.5) H 10/23/17 00:20 Creatinine 0.34 mg/dL (0.60-1.20) L 10/23/17 00:20 BUN/Creatinine Ratio 32 (6-26) H 10/23/17 00:09 AST 10 Units/L (13-39) L 10/23/17 00:09 ALT 6 Units/L (7-52) L 10/23/17 00:09 Lactate Dehydrogenase 124 Units/L (140-271) L 10/23/17 00:09 Ur Specific [place] > 1.030 (1.010-1.025) H 10/23/17 00:20 Urine Protein 30 mg/dL (Neg-Trace) H 10/23/17 00:20 Urine Bilirubin Small (Negative) H 10/23/17 00:20 Urine Microscopic RBC 3-5 per hpf (0-3) H 10/23/17 00:20 Urine Microscopic WBC 3-5 per hpf (0-3) H 10/23/17 00:20 Ur Squamous Epith Cells Many per lpf (None-Few) H 10/23/17 00:20 Protein/Creatinin Ratio 0.50 mg/mg (0.00-0.20) H 10/23/17 00:20 Urine Total Protein 66 mg/dL (1-14) H 10/23/17 00:20 U Marijuana (THC) Screen Positive ng/mL (Cutoff = 50) H 10/23/17 00:20 All other labs normal. - VTE Reasons for not Prescribing Prophylaxis: Treatment not Indicated - Low risk for VTE
== END 2017-10-23 02:30 | disposition home or self-care (01) ==
LOC: 1NENULAB
PROVIDERS: ADMIT Obstetrics & Gynecology; ATTEND Obstetrics & Gynecology

== ENCOUNTER → 2017-10-24 15:20 | Observation (INO) ==
[2017-10-24 12:56] LABS: Basophils % 0.3 %; Eosinophils # 0.5 K/mcL (0.0-0.6); Eosinophils % 4.2 %; Hemoglobin 11.3 g/dL (11.5-15.4); Immature Granulocytes % 0.4 % (0-4); Lymphocytes # 2.8 K/mcL (0.6-4.6); Lymphocytes % 22.8 %; Mean Corpuscular HGB Conc 35.3 g/dL (31.6-35.5); Mean Corpuscular Hemoglobin 31.2 pg (28.0-33.3); Mean Corpuscular Volume 88.4 fL (83.0-100.0); Mean Platelet Volume 10.2 fL (9.4-12.4); Monocytes # 0.8 K/mcL (0.0-1.3); Monocytes % 6.8 %; Neutrophils # 8.1 K/mcL (1.6-8.9); Platelet Count 183 K/mcL (140-400); Red Blood Count 3.62 M/mcL (3.82-4.97); Red Cell Distribution Width 12.5 % (11.5-14.5); Segmented Neutrophils % 65.5 %
[2017-10-24 13:32] LABS: Alanine Aminotransferase 6 Units/L (7-52); Aspartate Amino Transferase 9 Units/L (13-39); BUN/Creatinine Ratio 30 (6-26); Blood Urea Nitrogen 8 mg/dL (6-20); Lactate Dehydrogenase 113 Units/L (140-271); Uric Acid 3.8 mg/dL (2.3-7.6); eGFR For African Americans > 60 (> 60); eGFR For Non-African Americans > 60 (> 60)
[2017-10-24 13:40] LABS: Amphetamine Screen,Urine Negative ng/mL (Cutoff=1000); Barbiturate Screen,Urine Negative ng/mL (Cutoff=200); Benzodiazepines Screen,Urine Negative ng/mL (Cutoff=200); Cannabinoid Screen,Urine Positive ng/mL (Cutoff = 50); Cocaine Screen,Urine Negative ng/mL (Cutoff= 300); Creatinine,Urine 63 mg/dL; Opiate Screen,Urine Negative ng/mL (Cutoff=300); Phencyclidine Screen,Urine Negative ng/mL (Cutoff=25); Protein/Creatinine Ratio,Urine 0.65 mg/mg (0.00-0.20)
--- NOTE | 2017-10-24 14:12 | OB/GYN Progress Note ---
Date of Encounter: 10/24/17 Time of Encounter: 14:10 - Assessment and Plan (1) Gestational hypertension Current Visit: Yes Status: Acute Labs WNL today. UPCR 0.65 which is slightly higher than 2 days ago. BP initially mild range but low normal after resting in triage. Pt denies s/sx preeclampsia. POC discussed with Dr. Contreras. Discharge home with precautions. Follow-up for NST and BP check Sunday. Qualifiers: Trimester: third trimester Qualified Code(s): O13.3 - Gestational [ -induced] hypertension without significant proteinuria, third trimester (2) 36 weeks gestation of Current Visit: No Status: Acute NST reactive Subjective - Subjective Interval history: 27 year-old presenting at 36w2d to return her 24 hour urine collection. She reports that she spilled part of her urine so her 24 hour collection is not complete. She denies headache, vision changes, or other complaints. Good FM. Antepartum ROS: movement normal, no loss of fluid, no vaginal bleeding, no contractions Objective - Exam FHR: category 1 FHR comments: 130 RNST Auscultation: bilateral: normal Abdomen: Present: soft Uterus: Present: normal Comments: reflexes normal, no clonus - Labs Labs: Abnormal lab results WBC 12.3 K/mcL (4.3-11.1) H 10/24/17 12:38 RBC 3.62 M/mcL (3.82-4.97) L 10/24/17 12:38 Hgb 11.3 g/dL (11.5-15.4) L 10/24/17 12:38 Hct 32.0 % (35.3-44.9) L 10/24/17 12:38 Creatinine 0.27 mg/dL (0.60-1.20) L 10/24/17 12:20 BUN/Creatinine Ratio 30 (6-26) H 10/24/17 12:20 AST 9 Units/L (13-39) L 10/24/17 12:20 ALT 6 Units/L (7-52) L 10/24/17 12:20 Lactate Dehydrogenase 113 Units/L (140-271) L 10/24/17 12:20 Protein/Creatinin Ratio 0.65 mg/mg (0.00-0.20) H 10/24/17 12:38 Urine Total Protein 41 mg/dL (1-14) H 10/24/17 12:38 U Marijuana (THC) Screen Positive ng/mL (Cutoff = 50) H 10/24/17 12:38
== END | disposition home or self-care (01) ==
LOC: 1NENULAB
PROVIDERS: ADMIT Obstetrics & Gynecology; ATTEND Obstetrics & Gynecology

== ENCOUNTER 2017-11-01 00:12 | Inpatient (IN) ==
[2017-11-01] MEDS ORDERED: Naloxone 0.4 MG/ML INJ IVP PRN (00:47)
[2017-11-01] MEDS ORDERED: Ondansetron 4 MG/2 ML VIAL IVP PRN (00:47)
[2017-11-01] MEDS ORDERED: Famotidine 20 MG/2 ML VIAL IVP PRN (00:47)
[2017-11-01] MEDS ORDERED: Metoclopramide 10 MG/2 ML VIAL IVP PRN (00:47)
[2017-11-01] MEDS ORDERED: miSOPROStol 25 MCG TABLET PO PRN (00:55)
[2017-11-01 01:12] LABS: Basophils % 0.2 %; Eosinophils # 0.4 K/mcL (0.0-0.6); Eosinophils % 3.3 %; Hematocrit 31.7 % (35.3-44.9); Hemoglobin 11.3 g/dL (11.5-15.4); Immature Granulocytes % 0.4 % (0-4); Lymphocytes # 2.7 K/mcL (0.6-4.6); Lymphocytes % 23.6 %; Mean Corpuscular HGB Conc 35.6 g/dL (31.6-35.5); Mean Corpuscular Hemoglobin 31.7 pg (28.0-33.3); Mean Corpuscular Volume 88.8 fL (83.0-100.0); Mean Platelet Volume 11.1 fL (9.4-12.4); Monocytes # 0.7 K/mcL (0.0-1.3); Monocytes % 5.8 %; Neutrophils # 7.6 K/mcL (1.6-8.9); Platelet Count 164 K/mcL (140-400); Red Blood Count 3.57 M/mcL (3.82-4.97); Red Cell Distribution Width 12.6 % (11.5-14.5); Segmented Neutrophils % 66.7 %
[2017-11-01 01:32] LABS: Alanine Aminotransferase 6 Units/L (7-52); Aspartate Amino Transferase 12 Units/L (13-39); BUN/Creatinine Ratio 26 (6-26); Blood Urea Nitrogen 10 mg/dL (6-20); Lactate Dehydrogenase 141 Units/L (140-271); Uric Acid 4.4 mg/dL (2.3-7.6); eGFR For African Americans > 60 (> 60); eGFR For Non-African Americans > 60 (> 60)
[2017-11-01 01:43] LABS: Amphetamine Screen,Urine Negative ng/mL (Cutoff=1000); Barbiturate Screen,Urine Negative ng/mL (Cutoff=200); Benzodiazepines Screen,Urine Negative ng/mL (Cutoff=200); Cannabinoid Screen,Urine Positive ng/mL (Cutoff = 50); Cocaine Screen,Urine Negative ng/mL (Cutoff= 300); Opiate Screen,Urine Negative ng/mL (Cutoff=300); Phencyclidine Screen,Urine Negative ng/mL (Cutoff=25)
[2017-11-01 02:50] LABS: Protein/Creatinine Ratio,Urine 0.49 mg/mg (0.00-0.20)
--- NOTE | 2017-11-01 06:12 | OB/GYN History & Physical ---
Date of Encounter: 11/06/17 Time of Encounter: 06:07 Assessment and Plan (1) 37 weeks gestation of Status: Acute (2) Gestational hypertension Status: Acute Admit for IOL. Cytotec for induction. GBS negative Epidural when requested. Anticipate . PIH labs WNL except urine protein:creatinine ratio 0.49. BP WNL at this time. Was 150/90 upon arrival. No preeclampsia sx at this time. Qualifiers: Trimester: unspecified trimester Qualified Code(s): O13.9 - Gestational [ -induced] hypertension without significant proteinuria, unspecified trimester (3) Hyperemesis arising during Status: Acute History of Present Illness Chief complaint: gestational hypertension HPI: Ms. Callahan is a 27 year old female presenting at 37w3d for IOL due to gestational hypertension. She developed hypertension within the last two weeks but denies MCCOY, vision changes, or RUQ pain at this time. She has had intermittently elevated transaminase levels throughout this due to severe hyperemesis but they are currently normal. She has also had proteinuria throughout this and has a current protein-creatinine ratio of 0.49. This is also complicated by tobacco use and opiate addiction for which she is currently on subutex. Past Med Surg Social Fam HX - Past Medical History Medical history: asthma Psychiatric history: anxiety, depression - Past Surgical History Surgical History: cholecystectomy - Social History Smoking Status: Current every day smoker Smokeless Tobacco Status: No Alcohol use: none Drug use: none, marijuana, prescription drug abuse - Family History Mother Family Member Ethnicity: Non- Living Status: Still Living Hx Family Cardiac Disorders: Yes (hypertension) Hx Family Respiratory Disorders: No Hx Family Cancer: Yes Hx Family GI Disorders: No Hx Family Endocrine Disorder: No Hx Family Neuromuscular Disorders: No Hx Family Neurologic Disorders: No Hx Family HEENT Disorders: No Hx Family Autoimmune Disorders: No Hx Family Reproductive Disorders: Yes (multiple miscarriages) Obstetrical History - Pregnancies : 5 Para: 4 Term: 4 Livin Medications and Allergies Buprenorphine HCl [Subutex] 12 mg SL DAILY 07/19/17 [History] Patient Taking Own Medication 0 each SQ Q48H each 08/16/17 [Rx] Famotidine [Pepcid] 1 tab PO PRN PRN 10/23/17 [History] Vit B6/Me-Thfolate/Me-B12/Ala [Podiapn Capsule] 1 each PO 1-2XD 11/01/17 [ History] Ibuprofen [Motrin] 600 mg PO Q6H PRN #60 tablet 11/02/17 [Rx] Metoclopramide [Reglan] 10 mg PO PRN PRN #30 tablet 11/02/17 [Rx] Ondansetron ODT [Zofran ODT] 4 mg SL Q6HR #16 tab.rapdis 11/02/17 [Rx] Vit/FA 1 each PO DAILY tablet 11/02/17 [Rx] 3 Allergy/AdvReac Type Severity Reaction Status Date / Time cephalexin [From Keflex] Allergy Anaphylaxis Verified 10/23/17 00:31 Penicillins [PCN] Allergy Anaphylaxis Verified 10/23/17 00:31 tramadol [From Ultram] Allergy Anaphylaxis Verified 10/23/17 00:31 Review of System OB All systems PM: reviewed and no additional remarkable complaints except as stated Exam - Constitutional Constitutional: well developed, well nourished, no acute distress - HEENT HEENT: Mucus Membranes Moist - Lungs Respiratory exam: CTAB - Cardiovascular Cardiovascular exam: RRR - Abdomen Abdomen: Present: gravid, non tender - Extremities Extremities exam: normal inspection Deep Tendon Reflex Grade: 2+ Normal - Vulva Vulva: bilateral: normal - Vagina Vagina: Present: normal moisture - Cervix Dilation: 3 (3.5 per RN) Effacement: 80 Station: -1 Results Result Diagrams: 11/02/17 04:14 11/01/17 00:53 Abnormal lab results WBC 11.4 K/mcL (4.3-11.1) H 11/01/17 00:53 RBC 3.57 M/mcL (3.82-4.97) L 11/01/17 00:53 Hgb 11.3 g/dL (11.5-15.4) L 11/01/17 00:53 Hct 31.7 % (35.3-44.9) L 11/01/17 00:53 MCHC 35.6 g/dL (31.6-35.5) H 11/01/17 00:53 Creatinine 0.39 mg/dL (0.60-1.20) L 11/01/17 00:53 AST 12 Units/L (13-39) L 11/01/17 00:53 ALT 6 Units/L (7-52) L 11/01/17 00:53 Protein/Creatinin Ratio 0.49 mg/mg (0.00-0.20) H 11/01/17 00:53 Urine Total Protein 110 mg/dL (1-14) H 11/01/17 00:53 U Marijuana (THC) Screen Positive ng/mL (Cutoff = 50) H 11/01/17 00:53 All other labs normal. - VTE Reasons for not Prescribing Prophylaxis: Treatment not Indicated - Low risk for VTE
--- NOTE | 2017-11-01 07:22 | Anesthesia Evaluation PreOp ---
Date of Encounter: 11/01/17 Time of Encounter: 07:15 - Past History Planned Operation: vaginal del, PIH induction 37wk, Cardiac History: Denies any Significant Hx Pulmonary History: Smoker, Asthma CRISIS COUNSELOR History: Other (bipolar, anxiety depression, reported chronic back pain with occ = sciatic electric shocks, patient unable to indicate if position related or any other details related to the electric shocks. not seeking treatment for it, was told it was the baby.) Other Medical History: GERD, Other (hyperemesis during required zofran GTT, freq reglan and phenergan.) Anesthesia History: No Prior Anesthetic Complications, Past Anesthesia ( previous diff epidural, and only one worked of 4.) Alcohol Use: none Drug use: none, marijuana, prescription drug abuse Medications and Allergies Vit #116/Iron/FA/Dha [ Formula-Dha Softgel] 1 each PO DAILY 08/26 [History] DiphenhydraMINE [Benadryl] 25 mg PO Q8HR #30 capsule 06/22/17 [Rx] Buprenorphine HCl [Subutex] 12 mg SL DAILY 07/19/17 [History] Non-Formulary Medication 1 each SQ AD 07/19/17 [History] Patient Taking Own Medication 0 each SQ Q48H each 08/16/17 [Rx] Acetaminophen [Tylenol] 650 mg PO Q6HR PRN 10/23/17 [History] Albuterol Sulfate [Albuterol Inhaler] 1 puff .ROUTE PRN PRN 10/23/17 [History] Famotidine [Pepcid] 1 tab PO PRN PRN 10/23/17 [History] Ferrous Sulfate [Iron] 1 tab PO BID 10/23/17 [History] Metoclopramide [Reglan] 10 mg PO PRN PRN 10/23/17 [History] Sucralfate [Carafate] 1 gm PO PRN PRN 10/23/17 [History] Promethazine [Phenergan] 12.5 mg PO Q6HR PRN 11/01/17 [History] Vit B6/Me-Thfolate/Me-B12/Ala [Podiapn Capsule] 1 each PO 1-2XD 11/01/17 [ History] 3 Allergy/AdvReac Type Severity Reaction Status Date / Time cephalexin [From Keflex] Allergy Anaphylaxis Verified 10/23/17 00:31 Penicillins [PCN] Allergy Anaphylaxis Verified 10/23/17 00:31 tramadol [From Ultram] Allergy Anaphylaxis Verified 10/23/17 00:31 Anesthesia Results - Labs 11/01/17 00:53 11/01/17 00:53 Anesthesia Exam - HEENT Pupil (Motor): Pupils equal Mallampati: II Oral Opening: Greater than 3 - CRISIS COUNSELOR LOC: Oriented CRISIS COUNSELOR Motor: Normal RUE, Normal LUE, Normal RLE, Normal LLE, Normal Face CRISIS COUNSELOR Sensory: Normal: RUE, LUE, RLE, LLE, Face - Cardiac Rhythm: Regular Murmur: None - Pulmonary Breath Sounds: bilateral Clear Respiratory Effort: Symmetrical Anesthesia Assess/Plan ASA Score: 2 Modified Dominic Scale for Level of Consciousness: Cooperative, oriented, and tranquil Anesthetic Plan: General, Regional Monitoring Plan: Standard Monitors Recovery Plan: PACU
[2017-11-01] MEDS ORDERED: Epidural Premix (fent/bupiv) 110 ML EP SCH (07:30)
[2017-11-01] MEDS: Ringers Solution, Lactated 1,000 ML IVC SCH ×2 (08:44→12:41)
[2017-11-01] MEDS ORDERED: Epidural Premix (fent/bupiv) 110 ML EP ONE ×2 (09:16→15:24)
--- NOTE | 2017-11-01 10:01 | Anesthesia Procedures ---
Date of Encounter: 11/01/17 Time of Encounter: 09:23 Procedures: Anesthesia - Epidural/Spinal Patient ID/Chart reviewed: Yes Patient examined: Yes OB Eval: Gestational age: 36 OB Eval: : 5 OB Eval: Hx Para: 4 OB Eval: Contractions: Non-stressed pattern Consent Obtained: Yes Supplemental Oxygen: None/Room Air Site Prep: Aseptic Technique, Sterile prep and drape, 0.5% Chlorhexidine/Alcohol Patient position: upright Local Anesthetic: Lidocaine 1% Amount of Local Anesthetic used: 2 Touhy Needle Gauge: 18 Touhy Needle Depth (cm): 7 Catheter Depth at Skin (cm): 11 Test Dose (1.5% Lido + Epi): Volume given (mls): 3 Test Dose Result: Negative Loading Dose: Other: 10ml from solution Loading Dose Administered: Thru Catheter Infusion Med: 0.125% Bupivacaine w/ 2 mcg/ml Fentanyl Infusion Rate (mls/hr): [address]: Tegaderm, Tape Interspace Used: L3-L4 Loss of Resistance (MAIKEL): Yes (saline) Blood: No CSF: No Paresthesia: No Procedure: vss though out procedure, FHR via RN's stable
--- NOTE | 2017-11-01 11:23 | OB Labor Progress Note ---
Date of Encounter: 11/01/17 Time of Encounter: 11:00 Labor Progress Note - Subjective Subjective: Patient received epidural, denies any pain or pressure currently. - Vital Signs Vital Signs: Vitals stable - Cervix Cervix: Posteriorly tilted, unable to assess dilation per RN's last exam. - Heart Tones Heart Tones: [place] I - [place]: Q3-5 mins - Interventions Interventions: Cytotec given shortly before 4am, patient was sidney well prior to epidural. Epidural started. - Plan Plan: Still sidney, but not as strong. Plan to start pitocin. Anticipate .
[2017-11-01] MEDS ORDERED: Oxytocin 20 units/ LR 1000 mL 20 UNIT/1,000 ML BAG IVC SCH ×2 (11:30→21:30)
--- NOTE | 2017-11-01 14:16 | OB Labor Progress Note ---
Date of Encounter: 11/01/17 Time of Encounter: 14:12 Labor Progress Note - Subjective Subjective: Contractions improved, holding pitocin for now. Patient resting in bed. No acute distress. Comfortable since epidural. - Vital Signs Vital Signs: VSS - Cervix Cervix: 6cm/80%/-1 - Heart Tones Heart Tones: Category I - [place]: Q4mins - Interventions Interventions: AROM, fluid clear. - Plan Plan: Patient slowly progressing, will observe after AROM. Consider pitocin if indicated. Anticipate
[2017-11-01] MEDS: *HR* Buprenorphine HCl 8 MG TAB.SUBL SL SCH ×2 (15:27→21:56)
--- NOTE | 2017-11-01 18:25 | OB/GYN Procedure Note ---
Delivery - Delivery Date: 11/01/17 Provider: Renny Akins Intrapartum events: none Delivery induction: AROM, misoprostol Delivery monitor: external FHT, external uterine Anesthesia: epidural Quantitated Blood Loss: 150 - (s) Infant A Infant Delivery Date: 11/01/17 Delivery Time: 17:53 Presentation: vertex Position: DON Route of delivery: Gender: Male Viability: Viable Pounds: 5 Ounces: 14 Weight Gram: 2660 kg at 1 minute: 8 at 5 mins: 8 Shoulder Dystocia: not encountered Specimens collected: cord blood Placenta: spontaneous, complete extraction Cord: nuchal cord, 3 umbilical vessels, nuchal cut - Repair Episiotomy: none Laceration Description: None - Complications Delivery complications: none Delivery comments: Normal spontaneous vaginal delivery of live male, position DON over intact perineum with epidural anesthesia. Nuchal cord noted, tight, cut and released; baby then delivered spontaneously. Baby placed on maternal abdomen. No meconium. Spontaneous delivery of placenta with 3-vessel cord. No lacerations noted. EBL of 150ml. Baby weight 5lb 14oz (2660g) and apgars 8/8. - Disposition Mom disposition: stable in LDR [place] disposition: taken to nursery
[2017-11-01] MEDS ORDERED: Ibuprofen 600 MG TABLET PO PRN (21:16)
[2017-11-01] MEDS ORDERED: Rho Immune Globulin 1,500 UNIT SYRINGE IM PRN (21:16)
[2017-11-01] MEDS ORDERED: Acetaminophen 325 MG TABLET PO PRN (21:16)
[2017-11-01] MEDS ORDERED: Measles/Mumps/Rubella Vacc 0.5 ML VIAL SQ PRN (21:16)
[2017-11-01] MEDS ORDERED: Nicotine 21 MG PATCH.TD24 TD SCH (21:30)
[2017-11-01] MEDS ORDERED: Methylergonovine 0.2 MG/ML AMPUL IM ONE (23:54)
[2017-11-02] MEDS ORDERED: Metoclopramide 10 MG/2 ML VIAL IVP ONE (03:25)
[2017-11-02 04:37] LABS: Basophils % 0.3 %; Eosinophils # 0.3 K/mcL (0.0-0.6); Eosinophils % 2.6 %; Hematocrit 29.6 % (35.3-44.9); Hemoglobin 10.2 g/dL (11.5-15.4); Immature Granulocytes % 0.4 % (0-4); Lymphocytes # 2.6 K/mcL (0.6-4.6); Lymphocytes % 19.7 %; Mean Corpuscular HGB Conc 34.5 g/dL (31.6-35.5); Mean Corpuscular Hemoglobin 30.5 pg (28.0-33.3); Mean Corpuscular Volume 88.6 fL (83.0-100.0); Mean Platelet Volume 10.6 fL (9.4-12.4); Monocytes # 0.8 K/mcL (0.0-1.3); Monocytes % 5.8 %; Neutrophils # 9.3 K/mcL (1.6-8.9); Platelet Count 151 K/mcL (140-400); Red Blood Count 3.34 M/mcL (3.82-4.97); Red Cell Distribution Width 12.5 % (11.5-14.5); Segmented Neutrophils % 71.2 %
[2017-11-02] MEDS ORDERED: Famotidine 20 MG/2 ML VIAL IVP ONE (04:57)
[2017-11-02 08:13] VITALS: BP 138/93
--- NOTE | 2017-11-02 08:17 | Discharge Summary ---
Date of Encounter: 11/02/17 Time of Encounter: 08:15 - Discharge Diagnosis (1) Vaginal delivery Priority: Primary Status: Acute Comments: continue routine care discharge home follow up with Dr. Akins in 4-6 weeks (2) Encounter for monitoring Subutex maintenance therapy Priority: Secondary Status: Acute Comments: Continue as prescribed - Discharge Medications Prescriptions: Ibuprofen [Motrin] 600 mg PO Q6H PRN #60 tablet PRN Reason: Cramping Metoclopramide [Reglan] 10 mg PO PRN PRN #30 tablet PRN Reason: Nausea Home Medications: Buprenorphine HCl [Subutex] 12 mg SL DAILY 07/19/17 [History] Patient Taking Own Medication 0 each SQ Q48H each 08/16/17 [Rx] Famotidine [Pepcid] 1 tab PO PRN PRN 10/23/17 [History] Vit B6/Me-Thfolate/Me-B12/Ala [Podiapn Capsule] 1 each PO 1-2XD 11/01/17 [ History] Ibuprofen [Motrin] 600 mg PO Q6H PRN #60 tablet 11/02/17 [Rx] Metoclopramide [Reglan] 10 mg PO PRN PRN #30 tablet 11/02/17 [Rx] Vit/FA 1 each PO DAILY tablet 11/02/17 [Rx] Allergies/Adverse Reactions: 3 Allergy/AdvReac Type Severity Reaction Status Date / Time cephalexin [From Keflex] Allergy Anaphylaxis Verified 10/23/17 00:31 Penicillins [PCN] Allergy Anaphylaxis Verified 10/23/17 00:31 tramadol [From Ultram] Allergy Anaphylaxis Verified 10/23/17 00:31 Data Procedures and tests throughout hospitalization: Laboratory Tests 11/01/17 11/01/17 11/01/17 00:53 00:53 00:53 WBC 11.4 H RBC 3.57 L Hgb 11.3 L Hct 31.7 L MCV 88.8 MCH 31.7 MCHC 35.6 H RDW 12.6 Plt Count 164 MPV 11.1 Immature Gran % 0.4 Seg Neutrophils % 66.7 Lymphocytes % 23.6 Monocytes % 5.8 Eosinophils % 3.3 Basophils % 0.2 Neutrophils # 7.6 Lymphocytes # 2.7 Monocytes # 0.7 Eosinophils # 0.4 Basophils # 0.0 BUN 10 Creatinine 0.39 L Est GFR ( Amer) > 60 Est GFR (Non-Af Amer) > 60 BUN/Creatinine Ratio 26 Uric Acid 4.4 AST 12 L ALT 6 L Lactate Dehydrogenase 141 Urine Creatinine Protein/Creatinin Ratio Urine Total Protein Urine Opiates Screen Negative Ur Barbiturates Screen Negative Ur Phencyclidine Scrn Negative Ur Amphetamines Screen Negative U Benzodiazepines Scrn Negative Urine Cocaine Screen Negative U Marijuana (THC) Screen Positive H 11/01/17 11/02/17 00:53 04:14 WBC 13.0 H RBC 3.34 L Hgb 10.2 L Hct 29.6 L MCV 88.6 MCH 30.5 MCHC 34.5 RDW 12.5 Plt Count 151 MPV 10.6 Immature Gran % 0.4 Seg Neutrophils % 71.2 Lymphocytes % 19.7 Monocytes % 5.8 Eosinophils % 2.6 Basophils % 0.3 Neutrophils # 9.3 H Lymphocytes # 2.6 Monocytes # 0.8 Eosinophils # 0.3 Basophils # 0.0 BUN Creatinine Est GFR ( Amer) Est GFR (Non-Af Amer) BUN/Creatinine Ratio Uric Acid AST ALT Lactate Dehydrogenase Urine Creatinine 227 Protein/Creatinin Ratio 0.49 H Urine Total Protein 110 H Urine Opiates Screen Ur Barbiturates Screen Ur Phencyclidine Scrn Ur Amphetamines Screen U Benzodiazepines Scrn Urine Cocaine Screen U Marijuana (THC) Screen Labs on day of discharge: Labs from last 24 hours 11/02/17 04:14 WBC 13.0 H RBC 3.34 L Hgb 10.2 L Hct 29.6 L MCV 88.6 MCH 30.5 MCHC 34.5 RDW 12.5 Plt Count 151 MPV 10.6 Immature Gran % 0.4 Seg Neutrophils % 71.2 Lymphocytes % 19.7 Monocytes % 5.8 Eosinophils % 2.6 Basophils % 0.3 Neutrophils # 9.3 H Lymphocytes # 2.6 Monocytes # 0.8 Eosinophils # 0.3 Basophils # 0.0 Date of admission: 11/01/17 00:12 Primary care physician: PCP NONE Consults: 11/01/17 21:16 Consult to [employer] Lineman [CONS] Routine Comment: Vaginal delivery, consult needed Consult to Jail Guard [CONS] Routine Reason for SW Consult: subutex group Discharging clinician: Alla Cotton Anticipated date of discharge: 11/02/17 - Patient Status Disposition: Home, Self-Care Condition: Good Functional capacity at discharge: independent ambulation - Discharge Instructions Follow Up With: NONE,PCP [Primary Care Provider] - Renny Akins MD [Partnered Physician] - - Diet and Activity Activity: increase activity as tolerated Diet: regular diet Hospital Course Reason for admission: induction of labor Delivery: Episiotomy: none Other procedures: none complications: none Discharge diagnosis: IUP at term delivered [place] baby: male (breast/bottle feeding) Time Attestation: Total time spent providing and/or coordinating discharge services: Time Spent: Less than 30 minutes Exam - Constitutional Vitals: Temp Pulse Resp BP Pulse Ox 97.6 F 90 18 138/93 98 11/02/17 07:30 11/02/17 07:30 11/02/17 07:30 11/02/17 07:30 11/02/17 04:38 General appearance IM: A&O X 3, pleasant, answers questions appropriately - Respiratory Respiratory exam: Present: CTAB - Cardiovascular Cardiovascular exam IM: Present: RRR, +S1, +S2 - GI/Abdominal GI/Abdominal exam IM: normal bowel sounds - Uterine Tone: Firm Uterus Position: At Umbilicus, Midline - Extremities Exam Extremities exam IM: Present: full ROM, normal capillary refill, normal inspection - Neurological Exam Neurological exam: alert, oriented X3, reflexes normal
[2017-11-02] MEDS ORDERED: Ondansetron 4 MG/2 ML VIAL IVP ONE (08:22)
[2017-11-02] MEDS ORDERED: Prenatal Vit/FA 1 EACH TABLET PO SCH (09:00)
[2017-11-02] MEDS: *HR* Buprenorphine HCl 8 MG TAB.SUBL SL SCH (09:50)
== END 2017-11-02 11:30 | disposition home or self-care (01) | DRG 560 ==
LOC: 1NENULAB 00:12 → 1NENUOBS 20:34
PROVIDERS: ADMIT Obstetrics & Gynecology; ATTEND Obstetrics & Gynecology

== ENCOUNTER 2019-02-21 15:55 | Inpatient (IN) ==
[2019-02-21] MEDS ORDERED: *HR* Promethazine 25 MG/ML VIAL IVP ONE (16:26)
[2019-02-21] MEDS ORDERED: 0.9 % Sodium Chloride 1,000 ML IVC ONE (16:27)
[2019-02-21 17:09] LABS: Basophils % 0.2 %; Hematocrit 34.6 % (35.3-44.9); Hemoglobin 11.8 g/dL (11.5-15.4); Immature Granulocytes % 0.2 % (0-4); Lymphocytes # 1.8 K/mcL (0.6-4.6); Lymphocytes % 13.4 %; Mean Corpuscular HGB Conc 34.1 g/dL (31.6-35.5); Mean Corpuscular Hemoglobin 29.9 pg (28.0-33.3); Mean Corpuscular Volume 87.8 fL (83.0-100.0); Mean Platelet Volume 9.8 fL (9.4-12.4); Monocytes # 0.4 K/mcL (0.0-1.3); Monocytes % 2.9 %; Platelet Count 310 K/mcL (140-400); Red Blood Count 3.94 M/mcL (3.82-4.97); Red Cell Distribution Width 12.5 % (11.5-14.5); Segmented Neutrophils % 83.3 %; White Blood Count 13.2 K/mcL (4.3-11.1)
[2019-02-21 17:20] LABS: Alanine Aminotransferase 33 Units/L (7-52); Aspartate Amino Transferase 42 Units/L (13-39); BUN/Creatinine Ratio 24 (6-26); Blood Urea Nitrogen 6 mg/dL (6-20); Lactate Dehydrogenase 137 Units/L (140-271); Uric Acid 3.3 mg/dL (2.3-7.6); eGFR For African Americans > 60 (> 60); eGFR For Non-African Americans > 60 (> 60)
[2019-02-21 17:41] LABS: Bilirubin,Urine Small (Negative); Blood,Urine Negative (Negative); Clarity,Urine Clear (Clear); Color,Urine Dark Yellow (Yellow); Glucose,Urine (UA) Normal (Normal); Ketones,Urine >=160 mg/dL (Negative); Leukocyte Esterase,Urine Small (Negative); Nitrite,Urine Negative (Negative); Protein,Urine 30 mg/dL (Neg-Trace); Specific Gravity,Urine 1.028 (1.010-1.025); Urobilinogen,Urine Normal (Normal)
[2019-02-21 17:44] LABS: Bacteria,Urine Moderate per hpf (None-Few); Hyaline Casts,Urine Few per lpf (None-Few); Squamous Epithelial Cell,Urine Many per lpf (None-Few)
--- NOTE | 2019-02-21 17:44 | Emergency Department Note ---
Disposition Clinical Impression: Nausea/vomiting in Disposition: Admitted As Inpatient Condition: Fair Forms: ED Satisfaction Letter Time of Disposition: 18:15 Nausea/Vomiting/Diarrhea HPI - General Chief complaint: ED Nausea/Vomiting/Diarrhea Stated complaint: N/V Time Seen by Provider: 02/21/19 15:59 Source: EMS Mode of arrival: ambulatory Limitations: no limitations Nursing Notes Reviewed: Yes Vital Signs Reviewed: Yes - History of Present Illness HPI Narrative: 28-year-old female 22 week here for nausea and vomiting. She was here yesterday for similar symptoms. She was sent home with a antibiotic for possible UTI. Said that she has been unable to keep anything down. She has been using Zofran, Phenergan, Reglan with no relief of her nausea and vomiting so she puked out whenever she takes it. Says nonbilious nonbloody. Said this is common for her where she has needed a Zofran pump in the past and previous pregnancies. She also she has history preeclampsia and is worried that also is going on at this time. Otherwise patient is no other complaints. - Related Data Home Medications Medication Instructions Recorded Confirmed Buprenorphine HCl [Subutex] 12 mg SL DAILY 02/19/18 12/27/18 Promethazine [Phenergan] 25 mg PO PRN PRN 12/27/18 12/27/18 Previous Rx's Medication Instructions Recorded Ondansetron [Zofran ODT] 8 mg SL Q8H PRN #12 tab 12/28/18 Promethazine [Phenergan] 25 mg RC Q8HR #6 supp.rect 12/28/18 Ondansetron ODT [Zofran ODT] 4 mg SL Q8HR #12 tab.rapdis 02/20/19 cephALEXin [Keflex] 500 mg PO BID #14 capsule 02/20/19 Allergies Allergy/AdvReac Type Severity Reaction Status Date / Time cephalexin [From Keflex] Allergy Anaphylaxis Verified 04/21/18 17:11 Penicillins [PCN] Allergy Anaphylaxis Verified 04/21/18 17:11 tramadol [From Ultram] Allergy Anaphylaxis Verified 04/21/18 17:11 All systems ED: reviewed and negative except as stated. Review of Systems: As Per HPI Past Medical History - Past Medical History Attestation: Yes The following information was validated with the patient. Source: patient Medical history: Reports: asthma, hypertension, other Surgical history: Reports: cholecystectomy Psychiatric history: Reports: anxiety CAMPAIGN ANALYST history: Reports: no CAMPAIGN ANALYST history - Social History Smoking Status: Current every day smoker Smokeless Tobacco Status: No Alcohol use: Reports: none Drug use: Reports: none Physical Exam - General Limitations: no limitations General appearance: alert, in no apparent distress - Head Head exam: atraumatic, normocephalic, normal inspection - Eye Eye exam: Present: normal appearance, PERRL, EOMI - ENT ENT exam: normal exam, normal oropharynx, mucous membranes moist - Neck Neck exam: Present: normal inspection, full ROM, trachea midline - Chest Chest inspection: Present: normal inspection, symmetric chest wall rise - Respiratory Respiratory exam: Present: normal lung sounds bilaterally - Cardiovascular Cardiovascular exam: Present: regular rate, normal rhythm, normal heart sounds - Abdominal Exam Abdominal exam: Present: soft, Non-Tender, normal bowel sounds. Absent: tenderness, distention, guarding, rebound, rigidity - Extremities Exam Extremities exam: Present: normal inspection, full ROM. Absent: tenderness, pedal edema - Back Exam Back exam: Present: normal inspection, full ROM. Absent: tenderness - Neurological Exam Neurological exam: Present: alert, oriented X3 - Skin Skin exam: Present: warm, dry, intact, normal color Course Course Narrative: We will get a preeclampsia workup including CBC LFTs renal function panel. We will also give patient Benadryl and Phenergan for her nausea and vomiting will give her IV fluids. Disposition pending results will consult with OB for further plan Vital Signs Temperature 98.2 F 02/21/19 16:00 Pulse Rate 90 02/21/19 16:00 Respiratory Rate 16 02/21/19 16:00 Blood Pressure 134/115 02/21/19 16:00 O2 Sat by Pulse Oximetry 99 02/21/19 16:00 Temperature 98.2 F 02/21/19 16:00 Pulse Rate 90 02/21/19 16:00 Respiratory Rate 16 02/21/19 16:00 Blood Pressure 134/115 02/21/19 16:00 O2 Sat by Pulse Oximetry 99 02/21/19 16:00 Oxygen Delivery Oxygen Delivery Room Air Nausea/Vomiting/Diarrhea - MDM Narrative Medical decision making narrative: Unable to keep patient's nausea under control after receiving Phenergan as well as Benadryl. I spoke with the on-call manager business process Rachael Jolly who agreed to admit the patient to their service for nausea and vomiting control. Patient is okay with this plan. Patient is admitted in stable condition to obstetrics floor. - Medical Records Medical records reviewed: Yes I reviewed the patient's medical records. - Lab Data Lab results reviewed: Yes I reviewed the patient's lab results. Result diagrams: 02/21/19 16:44 02/21/19 16:44 Lab Results 02/21/19 02/21/19 02/21/19 Range/Units 16:44 16:44 17:25 WBC 13.2 H (4.3-11.1) K/mcL RBC 3.94 (3.82-4.97) M/mcL Hgb 11.8 (11.5-15.4) g/dL Hct 34.6 L (35.3-44.9) % MCV 87.8 (83.0-100.0) fL MCH 29.9 (28.0-33.3) pg MCHC 34.1 (31.6-35.5) g/dL RDW 12.5 (11.5-14.5) % Plt Count 310 (140-400) K/mcL MPV 9.8 (9.4-12.4) fL Immature Gran % 0.2 (0-4) % Seg Neutrophils % 83.3 % Lymphocytes % 13.4 % Monocytes % 2.9 % Eosinophils % 0.0 % Basophils % 0.2 % Neutrophils # 11.0 H (1.6-8.9) K/mcL Lymphocytes # 1.8 (0.6-4.6) K/mcL Monocytes # 0.4 (0.0-1.3) K/mcL Eosinophils # 0.0 (0.0-0.6) K/mcL Basophils # 0.0 (0.0-0.2) K/mcL BUN 6 (6-20) mg/dL Creatinine 0.25 L (0.60-1.20) mg/dL Est GFR ( Amer) > 60 (> 60) Est GFR (Non-Af Amer) > 60 (> 60) BUN/Creatinine Ratio 24 (6-26) Uric Acid 3.3 (2.3-7.6) mg/dL AST 42 H (13-39) Units/L ALT 33 (7-52) Units/L Lactate Dehydrogenase 137 L (140-271) Units/L Urine Color Dark Yellow (Yellow) Urine Clarity Clear (Clear) Urine pH 7.0 (5.0-8.0) pH Units Ur Specific [place] 1.028 H (1.010-1.025) Urine Protein 30 H (Neg-Trace) mg/dL Urine Glucose (UA) Normal (Normal) mg/dL Urine Ketones >=160 H (Negative) mg/dL Urine Blood Negative (Negative) Urine Nitrite Negative (Negative) Urine Bilirubin Small H (Negative) Urine Urobilinogen Normal (Normal) mg/dL Ur Leukocyte Esterase Small H (Negative) Urine Microscopic RBC 5-15 H (0-3) per hpf Urine Microscopic WBC 5-15 H (0-3) per hpf Ur Squamous Epith Cells Many H (None-Few) per lpf Urine Bacteria Moderate H (None-Few) per hpf Hyaline Casts Few (None-Few) per lpf Ur Culture Indicated? YES A (NO)
--- NOTE | 2019-02-21 18:28 | Emergency Department Note ---
Disposition Clinical Impression: Nausea/vomiting in Disposition: Admitted As Inpatient Condition: Fair Time of Disposition: 18:28 General Adult HPI - General Chief complaint: ED Nausea/Vomiting/Diarrhea Stated complaint: N/V Time Seen by Provider: 02/21/19 15:59 Source: EMS Mode of arrival: ambulatory Limitations: no limitations - History of Present Illness Pain Scale: 9 - Related Data Home Medications Medication Instructions Recorded Confirmed Buprenorphine HCl [Subutex] 12 mg SL DAILY 02/19/18 12/27/18 Promethazine [Phenergan] 25 mg PO PRN PRN 12/27/18 12/27/18 Previous Rx's Medication Instructions Recorded Ondansetron [Zofran ODT] 8 mg SL Q8H PRN #12 tab 12/28/18 Promethazine [Phenergan] 25 mg RC Q8HR #6 supp.rect 12/28/18 Ondansetron ODT [Zofran ODT] 4 mg SL Q8HR #12 tab.rapdis 02/20/19 cephALEXin [Keflex] 500 mg PO BID #14 capsule 02/20/19 Allergies Allergy/AdvReac Type Severity Reaction Status Date / Time cephalexin [From Keflex] Allergy Anaphylaxis Verified 04/21/18 17:11 Penicillins [PCN] Allergy Anaphylaxis Verified 04/21/18 17:11 tramadol [From Ultram] Allergy Anaphylaxis Verified 04/21/18 17:11 Past Medical History - Past Medical History Medical history: Reports: asthma, hypertension, other Surgical history: Reports: cholecystectomy Psychiatric history: Reports: anxiety RISK OFFICER history: Reports: no RISK OFFICER history - Social History Smoking Status: Current every day smoker Smokeless Tobacco Status: No Alcohol use: Reports: none Drug use: Reports: none Physical Exam - General Limitations: no limitations General appearance: alert, in no apparent distress Course Vital Signs Temperature 98.2 F 02/21/19 16:00 Pulse Rate 90 02/21/19 16:00 Respiratory Rate 16 02/21/19 16:00 Blood Pressure 134/115 02/21/19 16:00 O2 Sat by Pulse Oximetry 99 02/21/19 16:00 Temperature 98.2 F 02/21/19 16:00 Pulse Rate 90 02/21/19 16:00 Respiratory Rate 16 02/21/19 16:00 Blood Pressure 134/115 02/21/19 16:00 O2 Sat by Pulse Oximetry 99 02/21/19 16:00 Oxygen Delivery Oxygen Delivery Room Air Medical Decision Making - Lab Data Result diagrams: 02/21/19 16:44 02/21/19 16:44 Lab Results 02/21/19 02/21/19 02/21/19 Range/Units 16:44 16:44 17:25 WBC 13.2 H (4.3-11.1) K/mcL RBC 3.94 (3.82-4.97) M/mcL Hgb 11.8 (11.5-15.4) g/dL Hct 34.6 L (35.3-44.9) % MCV 87.8 (83.0-100.0) fL MCH 29.9 (28.0-33.3) pg MCHC 34.1 (31.6-35.5) g/dL RDW 12.5 (11.5-14.5) % Plt Count 310 (140-400) K/mcL MPV 9.8 (9.4-12.4) fL Immature Gran % 0.2 (0-4) % Seg Neutrophils % 83.3 % Lymphocytes % 13.4 % Monocytes % 2.9 % Eosinophils % 0.0 % Basophils % 0.2 % Neutrophils # 11.0 H (1.6-8.9) K/mcL Lymphocytes # 1.8 (0.6-4.6) K/mcL Monocytes # 0.4 (0.0-1.3) K/mcL Eosinophils # 0.0 (0.0-0.6) K/mcL Basophils # 0.0 (0.0-0.2) K/mcL BUN 6 (6-20) mg/dL Creatinine 0.25 L (0.60-1.20) mg/dL Est GFR ( Amer) > 60 (> 60) Est GFR (Non-Af Amer) > 60 (> 60) BUN/Creatinine Ratio 24 (6-26) Uric Acid 3.3 (2.3-7.6) mg/dL AST 42 H (13-39) Units/L ALT 33 (7-52) Units/L Lactate Dehydrogenase 137 L (140-271) Units/L Urine Color Dark Yellow (Yellow) Urine Clarity Clear (Clear) Urine pH 7.0 (5.0-8.0) pH Units Ur Specific [place] 1.028 H (1.010-1.025) Urine Protein 30 H (Neg-Trace) mg/dL Urine Glucose (UA) Normal (Normal) mg/dL Urine Ketones >=160 H (Negative) mg/dL Urine Blood Negative (Negative) Urine Nitrite Negative (Negative) Urine Bilirubin Small H (Negative) Urine Urobilinogen Normal (Normal) mg/dL Ur Leukocyte Esterase Small H (Negative) Urine Microscopic RBC 5-15 H (0-3) per hpf Urine Microscopic WBC 5-15 H (0-3) per hpf Ur Squamous Epith Cells Many H (None-Few) per lpf Urine Bacteria Moderate H (None-Few) per hpf Hyaline Casts Few (None-Few) per lpf Ur Culture Indicated? YES A (NO) Attestation Statement - Attestation Attestation: I reviewed the residents documentation and agree with the residents assessment and plan of care. I have personally had face to face time with the patient. (Brief History, Brief Exam, and MDM) I personally supervised and was present for the cristina/critical portions of the following procedures completed by the resident: bedside US 28 year old female presents to the eD with complaints of intractable nausea and vomitting pregenancy but does not appear to be malnutritioned from the hyperemesis grarvidum. Loraine has treid mulitple therapies and cannot keep her UTI medicatiosn down and it is worsening. WE discused with OBGYN and state that she is 18 weeks and will need to be admitted to medicine with OBGYN consult.
[2019-02-21] MEDS ORDERED: dimenhyDRINATE 50 MG TABLET PO PRN (20:03)
[2019-02-21] MEDS ORDERED: Famotidine 20 MG/2 ML VIAL IVP ONE (20:04)
[2019-02-21] MEDS ORDERED: Ondansetron 4 MG/2 ML VIAL ONE (20:08)
[2019-02-21 20:13] LABS: Magnesium 1.8 mg/dL (1.6-2.6); Phosphorous 2.5 mg/dL (2.7-4.5); Potassium 3.5 mEq/L (3.5-5.1)
[2019-02-21] MEDS: Ondansetron 4 MG/2 ML VIAL IVP PRN (20:16)
--- NOTE | 2019-02-21 20:54 | Internal Med History&Physical ---
Date of Encounter: 02/21/19 Time of Encounter: 20:52 Internal Medicine - H&P: HPI Chief complaint: vomiting Admitted From: Home Plans for Post Hospital Care: Home History of present illness: Carmen Callahan is a 28-year-old woman () with a history of narcotic dependence now on buprenorphine and chronic tobacco use who is currently at approximately 19 weeks of gestation by ultrasound presenting to the emergency room with nausea and vomiting. It is noted that about 15 months ago she was admitted here during her last with hyperemesis gravidarum. She says this is recurring and it is around the same time of gestation. She has been unable to keep anything down and has been taking oral ondansetron, metoclopramide and promethazine without significant relief. In the ER she was given a liter of saline, 50 mg diphenhydramine and 25 mg promethazine. She was initially meant to be admitted to the OB however because her gestation is less than 20 weeks, per hospital policy she will be admitted to medicine for continued management. Of note, she reports that these symptoms are longstanding and have been present been since her last , never really subsiding but have worsened now. She denies associated diarrhea but has felt chills. Vitals: Reviewed General: Well-developed white female lying in bed in notable discomfort. Skin: Warm, pale and dry. HEENT: Slightly dry mucous membranes. No conjunctivae pallor. Poor dentition. Neck: No lymphadenopathy. No JVD. No carotid bruits. No palpable thyroid. Chest: Normal thoracic expansion. Normal breath sounds. Clear to auscultation. Heart: Normal S1 & S2; tachycardic. Abdomen: Gravid, soft and non-tender to palpation. No peritoneal reaction. Extremities: No clubbing, cyanosis or edema. No calf tenderness. Normal distal pulses. Neurological: Awake, alert and oriented to person, place and time. No focal deficits. Psych: Affect appropriate. Assessment/Plan 1. Hyperemesis gravidarum: resulting in a state of moderate dehydration with an elevated urine specific gravity and concentrated urine as well as dry skin and mucous membranes. Will need to check her electrolytes as these were not done in the ER. Will continue hydration with isotonic fluids. Anti-emetics as needed and clear liquid diet for now which should be advanced as tolerated. I would recommend that she be evaluated by GI as an outpatient for the chronicity of her symptoms after resolution of this acute episode. 2. Narcotic dependence: Check UDS. Continue buprenorphine. 3. Tobacco use: 5 minutes were spent counseling and educating the patient on this habit. health services coordinator and resources were made available. 4. : She will continue to receive care per OB. Urinalysis noted with mild pyuria. Urine culture is in process. Treatment with oral antibiotics should be administered once culture yields results for asymptomatic bacteriuria in . Past Med Surg Social Fam HX - Past Medical History Medical history: asthma, hypertension, other Additional medical history: PER PT ON THIS DATE STATES WAS TAKING PAIN PILLS FOR YEARS AND THEN WANTED TO STOP TAKING PAIN PILLS AND WAS PUT ON SUBUTEX OVER A YEAR AGO. hyperemesis Psychiatric history: anxiety - Past Surgical History Surgical History: cholecystectomy Additional surgical history: wisdom teeth removed (2013) - Social History Smoking Status: Current every day smoker Smokeless Tobacco Status: No Alcohol use: none Drug use: none - Family History Mother Family Member Ethnicity: Non- Living Status: Still Living Hx Family Cardiac Disorders: Yes (hypertension) Hx Family Respiratory Disorders: No Hx Family Cancer: Yes Hx Family GI Disorders: No Hx Family Endocrine Disorder: No Hx Family Neuromuscular Disorders: No Hx Family Neurologic Disorders: No Hx Family HEENT Disorders: No Hx Family Autoimmune Disorders: No Internal Medicine - H&P: Meds Buprenorphine HCl [Subutex] 8 mg SL BID 02/19/18 [History] Promethazine [Phenergan] 25 mg PO BID PRN 12/27/18 [History] Ondansetron [Zofran ODT] 8 mg SL Q8H PRN #12 tab 12/28/18 [Rx] Allergy/AdvReac Type Severity Reaction Status Date / Time cephalexin [From Keflex] Allergy Anaphylaxis Verified 02/21/19 19:49 Naloxone Allergy Swelling Verified 02/21/19 19:49 of Lip/Tongue/Throat Penicillins [PCN] Allergy Anaphylaxis Verified 02/21/19 19:49 tramadol [From Ultram] Allergy Anaphylaxis Verified 02/21/19 19:49 All Systems PM: A 10-system review of systems was performed and is negative for pertinent findings except as documented above in the HPI. - Constitutional Vitals: Temp Pulse Resp BP Pulse Ox 99.4 F 91 18 146/98 97 02/21/19 20:43 02/21/19 20:43 02/21/19 20:43 02/21/19 20:43 02/21/19 20:43 Exam: . Internal Med - H&P Results - Labs CBC & Chem 7: 02/21/19 16:44 02/21/19 16:44 Labs: Short CBC 02/21/19 Range/Units 16:44 WBC 13.2 H (4.3-11.1) K/mcL Hgb 11.8 (11.5-15.4) g/dL Hct 34.6 L (35.3-44.9) % Plt Count 310 (140-400) K/mcL Neutrophils # 11.0 H (1.6-8.9) K/mcL BMP 02/21/19 16:44 Potassium 3.5 BUN 6 Creatinine 0.25 L Liver Function 02/21/19 Range/Units 16:44 AST 42 H (13-39) Units/L ALT 33 (7-52) Units/L Urine 02/21/19 Range/Units 17:25 Urine Color Dark Yellow (Yellow) Urine Clarity Clear (Clear) Urine pH 7.0 (5.0-8.0) pH Units Ur Specific [place] 1.028 H (1.010-1.025) Urine Protein 30 H (Neg-Trace) mg/dL Urine Glucose (UA) Normal (Normal) mg/dL - Time Spent With Patient Total time spent is greater than 50% in coordination of care (as documented) at patient's floor/unit and/or counseling patient:
[2019-02-21] MEDS: *HR* Promethazine 25 MG/ML VIAL IVP PRN (20:57)
[2019-02-21] MEDS: D5% in Lactated Ringers 1,000 ML IVC SCH (21:01)
[2019-02-21] MEDS: *HR* Buprenorphine HCl 8 MG TAB.SUBL SL SCH (21:01)
[2019-02-21] MEDS ORDERED: Sucralfate 1 GM TABLET PO SCH (22:00)
[2019-02-22] MEDS: *HR* Promethazine 25 MG/ML VIAL IVP PRN ×4 (03:40→20:41)
[2019-02-22] MEDS: D5% in Lactated Ringers 1,000 ML IVC SCH (05:30)
[2019-02-22 06:12] LABS: Basophils % 0.3 %; Eosinophils # 0.1 K/mcL (0.0-0.6); Eosinophils % 0.5 %; Hematocrit 34.7 % (35.3-44.9); Hemoglobin 11.7 g/dL (11.5-15.4); Immature Granulocytes % 0.4 % (0-4); Lymphocytes # 2.6 K/mcL (0.6-4.6); Lymphocytes % 25.3 %; Mean Corpuscular HGB Conc 33.7 g/dL (31.6-35.5); Mean Corpuscular Hemoglobin 29.7 pg (28.0-33.3); Mean Corpuscular Volume 88.1 fL (83.0-100.0); Mean Platelet Volume 9.8 fL (9.4-12.4); Monocytes # 0.8 K/mcL (0.0-1.3); Monocytes % 7.5 %; Neutrophils # 6.8 K/mcL (1.6-8.9); Platelet Count 301 K/mcL (140-400); Red Blood Count 3.94 M/mcL (3.82-4.97); Red Cell Distribution Width 12.4 % (11.5-14.5); White Blood Count 10.3 K/mcL (4.3-11.1)
[2019-02-22] MEDS: Pantoprazole 40 MG VIAL IVP SCH ×2 (06:16→07:46)
[2019-02-22] MEDS: Metoclopramide 10 MG/2 ML VIAL IVP PRN ×2 (06:16→18:09)
[2019-02-22 06:25] LABS: BUN/Creatinine Ratio 13 (6-26); Blood Urea Nitrogen 4 mg/dL (6-20); Calcium 8.6 mg/dL (8.6-10.3); Carbon Dioxide 22 mEq/L (23-29); Chloride 103 mEq/L (98-107); Glucose 117 mg/dL (70-105); Osmolality,Calculated 276 (280-300); Sodium 134 mEq/L (136-145); eGFR For African Americans > 60 (> 60); eGFR For Non-African Americans > 60 (> 60)
--- NOTE | 2019-02-22 08:00 | OB/GYN Consult Note ---
Date of Encounter: 02/22/19 Time of Encounter: 07:57 Assessment and Plan (1) 18 weeks gestation of Current Visit: Yes Status: Acute (2) Nausea/vomiting in Current Visit: Yes Status: Acute Management by hospitalist, will obtain daily heart tones. Recommend referral to home health for zofran pump. History of Present Illness Reason for consult: other (hyperemesis) History of present illness: here with intractable nausea and vomiting, 18+4 weeks gestation, states she has been throwing up for weeks has been taking po zofran and phenergan, but they do not help. Was seen in ED on 02/20 and 02/21 then admitted. She requests to be started back on zofran pump, as she has used this in past pregnancies. Pt states she is getting subutex from Dr. Felton at [facility] in [place]. OARRS shows this was recently started in January. reports good movement, denies cramping, vaginal bleeding or leaking of fluid Past Med Surg Social Fam HX - Past Medical History Medical history: asthma, hypertension, other Additional medical history: PER PT ON THIS DATE STATES WAS TAKING PAIN PILLS FOR YEARS AND THEN WANTED TO STOP TAKING PAIN PILLS AND WAS PUT ON SUBUTEX OVER A YEAR AGO. hyperemesis Psychiatric history: anxiety - Past Surgical History Surgical History: cholecystectomy Additional surgical history: wisdom teeth removed (2013) - Social History Smoking Status: Current every day smoker Smokeless Tobacco Status: No Alcohol use: none Drug use: none - Family History Mother Family Member Ethnicity: Non- Living Status: Still Living Hx Family Cardiac Disorders: Yes (hypertension) Hx Family Respiratory Disorders: No Hx Family Cancer: Yes Hx Family GI Disorders: No Hx Family Endocrine Disorder: No Hx Family Neuromuscular Disorders: No Hx Family Neurologic Disorders: No Hx Family HEENT Disorders: No Hx Family Autoimmune Disorders: No Medications and Allergies Buprenorphine HCl [Subutex] 8 mg SL BID 02/19/18 [History] Promethazine [Phenergan] 25 mg PO BID PRN 12/27/18 [History] Ondansetron [Zofran ODT] 8 mg SL Q8H PRN #12 tab 12/28/18 [Rx] Allergy/AdvReac Type Severity Reaction Status Date / Time cephalexin [From Keflex] Allergy Anaphylaxis Verified 02/21/19 19:49 Naloxone Allergy Swelling Verified 02/21/19 19:49 of Lip/Tongue/Throat Penicillins [PCN] Allergy Anaphylaxis Verified 02/21/19 19:49 tramadol [From Ultram] Allergy Anaphylaxis Verified 02/21/19 19:49 Review of Systems Constitutional: as per HPI Exam - Vital Signs Vital signs: Initial Vital Signs Temp Pulse Resp BP Pulse Ox 98.2 F 90 16 134/115 99 02/21/19 16:00 02/21/19 16:00 02/21/19 16:00 02/21/19 16:00 02/21/19 16:00 - Constitutional Constitutional: well developed, average body habitus - Abdomen Abdomen: Present: gravid, non tender (+ fht at 160) Results Result Diagrams: 02/22/19 05:31 02/22/19 05:31 Abnormal lab results WBC 13.2 K/mcL (4.3-11.1) H 02/21/19 16:44 Hct 34.7 % (35.3-44.9) L 02/22/19 05:31 Neutrophils # 11.0 K/mcL (1.6-8.9) H 02/21/19 16:44 Sodium 134 mEq/L (136-145) L 02/22/19 05:31 Potassium 3.0 mEq/L (3.5-5.1) L 02/22/19 05:31 Carbon Dioxide 22 mEq/L (23-29) L 02/22/19 05:31 BUN 4 mg/dL (6-20) L 02/22/19 05:31 Creatinine 0.30 mg/dL (0.60-1.20) L 02/22/19 05:31 Glucose 117 mg/dL (70-105) H 02/22/19 05:31 Calculated Osmolality 276 (280-300) L 02/22/19 05:31 Phosphorus 2.5 mg/dL (2.7-4.5) L 02/21/19 16:44 AST 42 Units/L (13-39) H 02/21/19 16:44 Lactate Dehydrogenase 137 Units/L (140-271) L 02/21/19 16:44 Ur Specific [place] 1.028 (1.010-1.025) H 02/21/19 17:25 Urine Protein 30 mg/dL (Neg-Trace) H 02/21/19 17:25 Urine Ketones >=160 mg/dL (Negative) H 02/21/19 17:25 Urine Bilirubin Small (Negative) H 02/21/19 17:25 Ur Leukocyte Esterase Small (Negative) H 02/21/19 17:25 Urine Microscopic RBC 5-15 per hpf (0-3) H 02/21/19 17:25 Urine Microscopic WBC 5-15 per hpf (0-3) H 02/21/19 17:25 Ur Squamous Epith Cells Many per lpf (None-Few) H 02/21/19 17:25 Urine Bacteria Moderate per hpf (None-Few) H 02/21/19 17:25 Ur Culture Indicated? YES (NO) A 02/21/19 17:25 All other labs normal. Consult Discharge Plan - Plan Referrals: NONE,PCP [Primary Care Provider] -
[2019-02-22 10:09] LABS: Amphetamine Screen,Urine Negative ng/mL (Cutoff=1000); Barbiturate Screen,Urine Negative ng/mL (Cutoff=200); Benzodiazepines Screen,Urine Negative ng/mL (Cutoff=200); Cannabinoid Screen,Urine Positive ng/mL (Cutoff = 50); Cocaine Screen,Urine Negative ng/mL (Cutoff= 300); Opiate Screen,Urine Negative ng/mL (Cutoff=300); Phencyclidine Screen,Urine Negative ng/mL (Cutoff=25)
[2019-02-22] MEDS: Ondansetron 4 MG/2 ML VIAL IVP PRN ×2 (11:45→23:50)
[2019-02-22] MEDS: *HR* Buprenorphine HCl 8 MG TAB.SUBL SL SCH ×2 (11:49→20:41)
[2019-02-22] MEDS: Prenatal Vit/FA 1 EACH TABLET PO SCH (11:49)
[2019-02-22] MEDS ORDERED: Potassium Chloride 40 MEQ, Lidocaine 1% 2 ML in 0.9 % Sodium Chloride 500 ML IVPB ONE (16:36)
--- NOTE | 2019-02-22 16:44 | Internal Med Progress Note ---
Hospitalist Progress Note - Encounter Date of Encounter: 02/22/19 Time of Encounter: 12:00 - Subjective Interval History: Patient was seen and examined at bedside currently she is not experiencing any nausea or vomiting however she is unable to tolerate any orals at this time. Discussed with patient Tameka gaytan she states that she has the pump at home -and that she has used [facility] in the past for her pump's service-we will contact home health services as well as renal social worker to set up Tameka gaytan in the meantime continue with IV fluids and monitor electrolytes closely - Exam Vitals: Temp Pulse Resp BP Pulse Ox 98.2 F 79 20 120/88 97 02/22/19 15:37 02/22/19 15:37 02/22/19 15:37 02/22/19 15:37 02/22/19 15:37 Exam: Skin: Free of rash and discoloration. Eyes: Sclera is white. There is no discharge from eyes. ENMT: Oral/pharyngeal mucosa is normal in appearance. There is no discharge from nose or ears. Respiratory: Normal breath sounds with no crackles and wheezes bilaterally. CV: Heart is regular with no gallop or murmur. GI: Abdomen is flat and soft with no palpable mass or visceromegaly. : There is no tenderness in patient's flanks bilaterally. Neuro exam: He has good strength in upper and lower extremities. He has normal eye movements. Psychiatric: He has normal affect. His thought process is appropriate to the situation. - Assessment and Plan (1) Hyperemesis gravidarum Current Visit: Yes Status: Acute Assessment and Plan: Hyperemesis resulting in stated moderate dehydration elevated urine specific gravity concentrated urine we will give IV fluids monitor lites lites closely and replace as needed OB has recommended and Zofran pump-patient states she currently has a pump at home and goes through [facility] we will consult home health and renal social worker Continue with antiemetics (2) Tobacco use Current Visit: Yes Status: Acute Assessment and Plan: Encourage patient to stop smoking (3) 18 weeks gestation of Current Visit: Yes Status: Acute Assessment and Plan: 1 patient is evaluated by OB services presented with intractable nausea and vomiting 18+4 weeks gestation per OBs notes. Denies any cramping vaginal bleeding or leaking of fluids Management per OB (4) Narcotic dependence Current Visit: No Status: Chronic Assessment and Plan: History of narcotic dependence tox screen has been completed and is positive for marijuana Buprenorphrine Patient receive Subutex from Dr. Felton at [facility] - Time Spent with Patient Total time spent is greater than 50% in coordination of care (as documented) at patient's floor/unit and/or counseling patient: Internal Medicine: Result - Labs CBC & Chem 7: 02/22/19 05:31 02/22/19 05:31 Labs: Short CBC 02/21/19 02/22/19 Range/Units 16:44 05:31 WBC 13.2 H 10.3 (4.3-11.1) K/mcL Hgb 11.8 11.7 (11.5-15.4) g/dL Hct 34.6 L 34.7 L (35.3-44.9) % Plt Count 310 301 (140-400) K/mcL Neutrophils # 11.0 H 6.8 (1.6-8.9) K/mcL BMP 02/21/19 02/22/19 16:44 05:31 Sodium 134 L Potassium 3.5 3.0 L Chloride 103 Carbon Dioxide 22 L BUN 6 4 L Creatinine 0.25 L 0.30 L Glucose 117 H Calcium 8.6 Liver Function 02/21/19 Range/Units 16:44 AST 42 H (13-39) Units/L ALT 33 (7-52) Units/L Urine 02/21/19 Range/Units 17:25 Urine Color Dark Yellow (Yellow) Urine Clarity Clear (Clear) Urine pH 7.0 (5.0-8.0) pH Units Ur Specific [place] 1.028 H (1.010-1.025) Urine Protein 30 H (Neg-Trace) mg/dL Urine Glucose (UA) Normal (Normal) mg/dL Consult Discharge Plan - Plan Referrals: NONE,PCP [Primary Care Provider] -
[2019-02-22] MEDS: 0.9 % Sodium Chloride 1,000 ML IVC SCH (18:09)
[2019-02-22 21:09] LABS: BUN/Creatinine Ratio 17 (6-26); Blood Urea Nitrogen 4 mg/dL (6-20); Carbon Dioxide 23 mEq/L (23-29); Chloride 107 mEq/L (98-107); Glucose 81 mg/dL (70-105); Osmolality,Calculated 278 (280-300); Potassium 3.4 mEq/L (3.5-5.1); Sodium 136 mEq/L (136-145); eGFR For African Americans > 60 (> 60); eGFR For Non-African Americans > 60 (> 60)
[2019-02-22] MEDS: Nicotine 14 MG PATCH.TD24 TD SCH (22:54)
[2019-02-23] MEDS: Magic Mouthwash 10 ML UD Cup PO SCH ×4 (00:26→17:19)
[2019-02-23] MEDS: Metoclopramide 10 MG/2 ML VIAL IVP PRN ×3 (01:09→23:00)
[2019-02-23] MEDS: *HR* Promethazine 25 MG/ML VIAL IVP PRN ×3 (04:20→19:43)
[2019-02-23] MEDS: 0.9 % Sodium Chloride 1,000 ML IVC SCH ×2 (05:39→16:14)
[2019-02-23 05:43] LABS: Basophils % 0.3 %; Eosinophils # 0.2 K/mcL (0.0-0.6); Eosinophils % 1.9 %; Hematocrit 32.1 % (35.3-44.9); Hemoglobin 10.8 g/dL (11.5-15.4); Immature Granulocytes % 0.3 % (0-4); Lymphocytes # 3.3 K/mcL (0.6-4.6); Lymphocytes % 34.9 %; Mean Corpuscular HGB Conc 33.6 g/dL (31.6-35.5); Mean Corpuscular Hemoglobin 29.6 pg (28.0-33.3); Mean Corpuscular Volume 87.9 fL (83.0-100.0); Mean Platelet Volume 9.5 fL (9.4-12.4); Monocytes # 0.6 K/mcL (0.0-1.3); Monocytes % 5.8 %; Neutrophils # 5.4 K/mcL (1.6-8.9); Platelet Count 264 K/mcL (140-400); Red Blood Count 3.65 M/mcL (3.82-4.97); Red Cell Distribution Width 12.5 % (11.5-14.5); Segmented Neutrophils % 56.8 %; White Blood Count 9.5 K/mcL (4.3-11.1)
[2019-02-23 06:02] LABS: BUN/Creatinine Ratio 14 (6-26); Blood Urea Nitrogen 4 mg/dL (6-20); Calcium 8.5 mg/dL (8.6-10.3); Carbon Dioxide 24 mEq/L (23-29); Chloride 106 mEq/L (98-107); Glucose 86 mg/dL (70-105); Osmolality,Calculated 280 (280-300); Potassium 3.7 mEq/L (3.5-5.1); Sodium 137 mEq/L (136-145); eGFR For African Americans > 60 (> 60); eGFR For Non-African Americans > 60 (> 60)
[2019-02-23] MEDS: Ondansetron 4 MG/2 ML VIAL IVP PRN ×2 (07:33→17:01)
[2019-02-23] MEDS: Prenatal Vit/FA 1 EACH TABLET PO SCH (08:01)
[2019-02-23] MEDS: Pantoprazole 40 MG VIAL IVP SCH (08:01)
[2019-02-23] MEDS: *HR* Buprenorphine HCl 8 MG TAB.SUBL SL SCH ×2 (08:01→19:43)
[2019-02-23] MEDS: Nicotine 14 MG PATCH.TD24 TD SCH (08:01)
--- NOTE | 2019-02-23 14:29 | Internal Med Progress Note ---
Hospitalist Progress Note - Encounter Date of Encounter: 02/24/19 Time of Encounter: 11:00 - Subjective Interval History: Patient was seen and examined at bedside states that her nausea is improving she has been eating solid food and tolerating well. Requesting that antiemetics be scheduled since she did not receive any last night and she woke up nauseated this morning. Will review with pharmacy and schedule antiemetics. Patient has been experiencing good movement no loss of fluids no vaginal bleeding or no contractions overnight awaiting high school social science teacher to set up so femoropopliteal - Exam Vitals: Temp Pulse Resp BP Pulse Ox 98.2 F 86 20 97/61 98 02/23/19 11:56 02/23/19 11:56 02/23/19 11:56 02/23/19 11:56 02/23/19 11:56 Exam: Skin: Free of rash and discoloration. Eyes: Sclera is white. There is no discharge from eyes. ENMT: Oral/pharyngeal mucosa is normal in appearance. There is no discharge from nose or ears. Respiratory: Normal breath sounds with no crackles and wheezes bilaterally. CV: Heart is regular with no gallop or murmur. GI: Abdomen is flat and soft with no palpable mass or visceromegaly. : There is no tenderness in patient's flanks bilaterally. Neuro exam: He has good strength in upper and lower extremities. He has normal eye movements. Psychiatric: He has normal affect. His thought process is appropriate to the situation. - Assessment and Plan (1) Hyperemesis gravidarum Current Visit: Yes Status: Acute Assessment and Plan: Hyperemesis resulting in stated moderate dehydration elevated urine specific gravity concentrated urine we will give IV fluids monitor lites lites closely an d replace as needed OB has recommended and Zofran pump-patient states she currently has a pump at [facility] and goes through [facility] we will consult home health and high school social science teacher Continue with antiemetics 02/24 This is improved continue with antiemetics Monitor electrolytes replace as needed Continued IV fluids Zofran Pump which is being set up by high school social science teacher/home health (2) Tobacco use Current Visit: Yes Status: Acute Assessment and Plan: Encourage patient to stop smoking (3) 18 weeks gestation of Current Visit: Yes Status: Acute Assessment and Plan: 1 patient is evaluated by OB services presented with intractable nausea and vomiting 18+4 weeks gestation per OBs notes. Denies any cramping vaginal bleeding or leaking of fluids Management per OB-has had good movement overnight (4) Narcotic dependence Current Visit: No Status: Chronic Assessment and Plan: History of narcotic dependence tox screen has been completed and is positive for marijuana Buprenorphrine Patient receive Subutex from Dr. Felton at [facility] - Time Spent with Patient Total time spent is greater than 50% in coordination of care (as documented) at patient's floor/unit and/or counseling patient: Internal Medicine: Result - Labs CBC & Chem 7: 02/24/19 08:24 02/24/19 08:24 Labs: Short CBC 02/23/19 Range/Units 05:25 WBC 9.5 (4.3-11.1) K/mcL Hgb 10.8 L (11.5-15.4) g/dL Hct 32.1 L (35.3-44.9) % Plt Count 264 (140-400) K/mcL Neutrophils # 5.4 (1.6-8.9) K/mcL BMP 02/22/19 02/23/19 20:29 05:25 Sodium 136 137 Potassium 3.4 L 3.7 Chloride 107 106 Carbon Dioxide 23 24 BUN 4 L 4 L Creatinine 0.23 L 0.29 L Glucose 81 86 Calcium 8.0 L 8.5 L Consult Discharge Plan - Plan Referrals: NONE,PCP [Primary Care Provider] -
--- NOTE | 2019-02-23 16:03 | OB/GYN Progress Note ---
Date of Encounter: 02/23/19 Time of Encounter: 16:00 - Assessment and Plan (1) 18 weeks gestation of Current Visit: Yes Status: Acute (2) Nausea/vomiting in Current Visit: Yes Status: Acute Continue management by medicine, Daily FHT will continue to see until discharge Subjective - Subjective Interval history: Pt remains admitted with hyperemesis, doing better clinically, able to tolerate po diet per patient, noted food eaten off tray in room. Pt states she is waiting on consult for [facility] home health. Reports good movement, Antepartum ROS: movement normal, no loss of fluid, no vaginal bleeding, no contractions Objective - Vital Signs Vital Signs: Vital Signs Temp Pulse Resp BP Pulse Ox 02/23/19 15:44 98.0 F 83 20 92/63 98 02/23/19 11:56 98.2 F 86 20 97/61 98 02/23/19 06:56 98.2 F 82 20 111/76 97 02/23/19 03:44 97.9 F 80 16 105/71 98 02/23/19 01:16 87 14 127/69 96 02/22/19 22:12 97.7 F 80 16 115/83 98 02/22/19 18:42 97.5 F L 84 16 112/71 97 Intake and Output 02/23/19 02/23/19 02/23/19 07:59 15:59 23:59 Intake Total 1000 / 1000 Output Total 325 / 625 300 / 625 Balance 675 / 375 -300 / 375 Intake: IV Fluids 1000 / 1000 0.9 % Sodium Chloride 1,000 ML 1000 / 1000 @ 100 mls/hr IVC .Q10H LATESHA Rx#: [id number] Output: Urine 325 / 625 300 / 625 Other: Weight 73.2 kg Patient Weight 02/23/19 23:59 Weight 73.2 kg - Exam FHR comments: by doppler 140 Abdomen: Present: soft, gravid - Labs Labs: Abnormal lab results WBC 13.2 K/mcL (4.3-11.1) H 02/21/19 16:44 RBC 3.65 M/mcL (3.82-4.97) L 02/23/19 05:25 Hgb 10.8 g/dL (11.5-15.4) L 02/23/19 05:25 Hct 32.1 % (35.3-44.9) L 02/23/19 05:25 Neutrophils # 11.0 K/mcL (1.6-8.9) H 02/21/19 16:44 Sodium 134 mEq/L (136-145) L 02/22/19 05:31 Potassium 3.4 mEq/L (3.5-5.1) L 02/22/19 20:29 Carbon Dioxide 22 mEq/L (23-29) L 02/22/19 05:31 BUN 4 mg/dL (6-20) L 02/23/19 05:25 Creatinine 0.29 mg/dL (0.60-1.20) L 02/23/19 05:25 Glucose 117 mg/dL (70-105) H 02/22/19 05:31 Calculated Osmolality 278 (280-300) L 02/22/19 20:29 Calcium 8.5 mg/dL (8.6-10.3) L 02/23/19 05:25 Phosphorus 2.5 mg/dL (2.7-4.5) L 02/21/19 16:44 AST 42 Units/L (13-39) H 02/21/19 16:44 Lactate Dehydrogenase 137 Units/L (140-271) L 02/21/19 16:44 Ur Specific [place] 1.028 (1.010-1.025) H 02/21/19 17:25 Urine Protein 30 mg/dL (Neg-Trace) H 02/21/19 17:25 Urine Ketones >=160 mg/dL (Negative) H 02/21/19 17:25 Urine Bilirubin Small (Negative) H 02/21/19 17:25 Ur Leukocyte Esterase Small (Negative) H 02/21/19 17:25 Urine Microscopic RBC 5-15 per hpf (0-3) H 02/21/19 17:25 Urine Microscopic WBC 5-15 per hpf (0-3) H 02/21/19 17:25 Ur Squamous Epith Cells Many per lpf (None-Few) H 02/21/19 17:25 Urine Bacteria Moderate per hpf (None-Few) H 02/21/19 17:25 Ur Culture Indicated? YES (NO) A 02/21/19 17:25 Ur Buprenorphine Scrn Positive ng/mL (Cutoff=5) H 02/21/19 17:25 U Marijuana (THC) Screen Positive ng/mL (Cutoff = 50) H 02/21/19 17:25
[2019-02-24] MEDS: 0.9 % Sodium Chloride 1,000 ML IVC SCH ×3 (03:24→16:06)
[2019-02-24] MEDS: *HR* Buprenorphine HCl 8 MG TAB.SUBL SL SCH (08:33)
[2019-02-24] MEDS: Pantoprazole 40 MG VIAL IVP SCH (08:34)
[2019-02-24] MEDS: *HR* Promethazine 25 MG/ML VIAL IVP PRN (08:34)
[2019-02-24] MEDS: Nicotine 14 MG PATCH.TD24 TD SCH (08:34)
[2019-02-24] MEDS: Prenatal Vit/FA 1 EACH TABLET PO SCH (08:34)
[2019-02-24] MEDS: Magic Mouthwash 10 ML UD Cup PO SCH ×3 (08:34→16:05)
[2019-02-24 08:53] LABS: Basophils % 0.4 %; Eosinophils # 0.3 K/mcL (0.0-0.6); Eosinophils % 3.9 %; Immature Granulocytes % 0.1 % (0-4); Lymphocytes # 2.7 K/mcL (0.6-4.6); Lymphocytes % 36.1 %; Mean Corpuscular HGB Conc 32.9 g/dL (31.6-35.5); Mean Corpuscular Hemoglobin 29.9 pg (28.0-33.3); Mean Corpuscular Volume 90.9 fL (83.0-100.0); Mean Platelet Volume 9.8 fL (9.4-12.4); Monocytes # 0.4 K/mcL (0.0-1.3); Monocytes % 5.8 %; Platelet Count 216 K/mcL (140-400); Red Blood Count 3.08 M/mcL (3.82-4.97); Red Cell Distribution Width 12.6 % (11.5-14.5); Segmented Neutrophils % 53.7 %; White Blood Count 7.4 K/mcL (4.3-11.1)
[2019-02-24 08:55] LABS: Hemoglobin 9.2 g/dL (11.5-15.4)
[2019-02-24 09:12] LABS: BUN/Creatinine Ratio 18 (6-26); Blood Urea Nitrogen 5 mg/dL (6-20); Carbon Dioxide 25 mEq/L (23-29); Chloride 105 mEq/L (98-107); Glucose 86 mg/dL (70-105); Osmolality,Calculated 277 (280-300); Potassium 3.9 mEq/L (3.5-5.1); Sodium 135 mEq/L (136-145); eGFR For African Americans > 60 (> 60); eGFR For Non-African Americans > 60 (> 60)
[2019-02-24] MEDS: Ondansetron 4 MG/2 ML VIAL IVP SCH ×2 (11:31→18:12)
[2019-02-24] MEDS: Metoclopramide 10 MG/2 ML VIAL IVP SCH ×2 (11:31→18:11)
[2019-02-24] MEDS ORDERED: *HR* Promethazine 25 MG/ML VIAL IVP SCH (15:00)
[2019-02-24 18:42] VITALS: BP 117/76
--- NOTE | 2019-02-25 13:32 | Internal Med Progress Note ---
Hospitalist Progress Note - Encounter Date of Encounter: 02/24/19 Time of Encounter: 11:00 - Subjective Interval History: Was seen and examined at bedside she is tolerating oral intake at this time stating she feels much better. She has good movement with no vaginal bleeding or leakage. Anticipate possible discharge pending Zofran pump set up for home health - Exam Vitals: Temp Pulse Resp BP Pulse Ox 97.8 F 80 16 117/76 99 02/24/19 18:39 02/24/19 18:39 02/24/19 18:39 02/24/19 18:39 02/24/19 18:39 Exam: Skin: Free of rash and discoloration. Eyes: Sclera is white. There is no discharge from eyes. ENMT: Oral/pharyngeal mucosa is normal in appearance. There is no discharge from nose or ears. Respiratory: Normal breath sounds with no crackles and wheezes bilaterally. CV: Heart is regular with no gallop or murmur. GI: Abdomen round soft with no palpable mass or visceromegaly. : There is no tenderness in patient's flanks bilaterally. Neuro exam: He has good strength in upper and lower extremities. He has normal eye movements. Psychiatric: He has normal affect. His thought process is appropriate to the situation. - Assessment and Plan (1) Hyperemesis gravidarum Status: Acute Assessment and Plan: Hyperemesis resulting in stated moderate dehydration elevated urine specific gravity concentrated urine we will give IV fluids monitor lites lites closely and replace as needed OB has recommended and Zofran pump-patient states she currently has a pump at home and goes through [facility] we will consult home health and social media senior associate Continue with antiemetics 02/24 This is improved continue with antiemetics Monitor electrolytes replace as needed Continued IV fluids Zofran Pump which is being set up by social media senior associate/home health (2) Tobacco use Status: Acute Assessment and Plan: Encourage patient to stop smoking (3) 18 weeks gestation of Status: Acute Assessment and Plan: 1 patient is evaluated by OB services presented with intractable nausea and vomiting 18+4 weeks gestation per OBs notes. Denies any cramping vaginal bleeding or leaking of fluids Management per OB-has had good movement overnight (4) Narcotic dependence Status: Chronic Assessment and Plan: History of narcotic dependence tox screen has been completed and is positive for marijuana Buprenorphrine Patient receive Subutex from Dr. Felton at [facility] - Time Spent with Patient Total time spent is greater than 50% in coordination of care (as documented) at patient's floor/unit and/or counseling patient: Internal Medicine: Result - Labs CBC & Chem 7: 02/24/19 08:24 02/24/19 08:24 Consult Discharge Plan - Plan Referrals: NONE,PCP [Primary Care Provider] -
== END 2019-02-24 20:06 | disposition left against medical advice (07) | DRG 566 ==
LOC: EMEROOARM 15:55 → 1NENUOBS 15:55 → 3BNU 19:49 → UNDODISOB 02-24 20:06
PROVIDERS: ADMIT Advanced Practice Midwife; ATTEND Advanced Practice Midwife

== ENCOUNTER → 2019-03-24 03:25 | Observation (INO) ==
[2019-03-24 01:36] LABS: Protein/Creatinine Ratio,Urine 6.83 mg/mg (0.00-0.20)
[~2019-03-24 03:25] MED LIST changes: -Bisacodyl 10 MG RECTAL SUPPOSITORY RC ONE; -D5% in Lactated Ringers 1,000 ML IVC ONE; -D5% in Lactated Ringers 1,000 ML IVC SCH; -Famotidine 20 MG/2 ML VIAL IVP SCH; -Ondansetron 4 MG/2 ML VIAL IVP ONE; -Pyridoxine (B-6) 50 MG in Ringers Solution, Lactated 1,000 ML IVP SCH; -Ringers Solution, Lactated 1,000 ML IVC ONE; -Scopolamine Patch 1.5 MG PATCH.TD72 TD ONE; -ZOFRAN PUMP SQ SCH
== END | disposition other institution (70) ==
LOC: 1NENULAB
PROVIDERS: ADMIT Advanced Practice Midwife; ATTEND Advanced Practice Midwife

== ENCOUNTER 2019-04-01 22:55 | Observation (INO) ==
[2019-04-01] MEDS ORDERED: 0.9 % Sodium Chloride 1,000 ML IVC ONE (23:13)
[2019-04-01] MEDS ORDERED: Ondansetron 4 MG/2 ML VIAL IVP ONE (23:13)
[2019-04-01 23:58] LABS: Basophils % 0.2 %; Eosinophils % 0.3 %; Hematocrit 40.6 % (35.3-44.9); Hemoglobin 14.1 g/dL (11.5-15.4); Immature Granulocytes % 0.4 % (0-4); Lymphocytes # 1.4 K/mcL (0.6-4.6); Lymphocytes % 12.2 %; Mean Corpuscular HGB Conc 34.7 g/dL (31.6-35.5); Mean Corpuscular Hemoglobin 30.6 pg (28.0-33.3); Mean Corpuscular Volume 88.1 fL (83.0-100.0); Mean Platelet Volume 9.9 fL (9.4-12.4); Monocytes # 0.1 K/mcL (0.0-1.3); Monocytes % 1.2 %; Neutrophils # 9.7 K/mcL (1.6-8.9); Platelet Count 283 K/mcL (140-400); Red Blood Count 4.61 M/mcL (3.82-4.97); Red Cell Distribution Width 12.4 % (11.5-14.5); Segmented Neutrophils % 85.7 %; White Blood Count 11.3 K/mcL (4.3-11.1)
[2019-04-02 00:12] LABS: BUN/Creatinine Ratio 19 (6-26); Blood Urea Nitrogen 7 mg/dL (6-20); Carbon Dioxide 22 mEq/L (23-29); Chloride 102 mEq/L (98-107); Glucose 108 mg/dL (70-105); Lipase 11 Units/L (11-82); Osmolality,Calculated 277 (280-300); Potassium 3.7 mEq/L (3.5-5.1); Sodium 134 mEq/L (136-145); eGFR For African Americans > 60 (> 60); eGFR For Non-African Americans > 60 (> 60)
[2019-04-02] MEDS ORDERED: *HR* Promethazine 25 MG/ML VIAL IVP STA ×2 (00:58→02:38)
[2019-04-02 00:59] LABS: Bacteria,Urine None Seen per hpf (None-Few); Bilirubin,Urine Negative (Negative); Blood,Urine Negative (Negative); Clarity,Urine Cloudy (Clear); Color,Urine Yellow (Yellow); Glucose,Urine (UA) Normal (Normal); Hyaline Casts,Urine None Seen per lpf (None-Few); Ketones,Urine 80 mg/dL (Negative); Leukocyte Esterase,Urine Negative (Negative); Nitrite,Urine Negative (Negative); PH,Urine 5.5 pH Units (5.0-8.0); Protein,Urine 30 mg/dL (Neg-Trace); Specific Gravity,Urine 1.024 (1.010-1.025); Squamous Epithelial Cell,Urine Many per lpf (None-Few); Urobilinogen,Urine Normal (Normal)
[2019-04-02 03:28] LABS: Protein/Creatinine Ratio,Urine 0.36 mg/mg (0.00-0.20)
[2019-04-02 03:29] VITALS: BP 140/97
[2019-04-02 03:36] LABS: Alanine Aminotransferase 15 Units/L (7-52); Albumin 4.6 g/dL (3.5-5.7); Albumin/Globulin Ratio 1.4 (1.1-2.2); Alkaline Phosphatase 75 Units/L (34-104); Aspartate Amino Transferase 13 Units/L (13-39); Bilirubin,Direct 0.1 mg/dL (0.0-0.2); Bilirubin,Indirect 0.3 mg/dL (0.0-1.0); Bilirubin,Total 0.4 mg/dL (0.3-1.0); Globulin 3.2 g/dL (2.4-3.5); Total Protein 7.8 g/dL (6.4-8.9)
[2019-04-02] MEDS ORDERED: Scopolamine Patch 1.5 MG PATCH.TD72 TD ONE (06:44)
[2019-04-02] MEDS ORDERED: Ringers Solution, Lactated 1,000 ML ONE (06:45)
[2019-04-02] MEDS: Prochlorperazine 10 MG/2 ML VIAL IVP PRN ×3 (07:59→20:38)
[2019-04-02] MEDS: Ringers Solution, Lactated 1,000 ML IVC SCH ×2 (08:57→20:37)
[2019-04-02] MEDS ORDERED: *HR* Promethazine 25 MG/ML VIAL IVP ONE (10:02)
[2019-04-02 10:27] LABS: Amphetamine Screen,Urine Negative ng/mL (Cutoff=1000); Barbiturate Screen,Urine Negative ng/mL (Cutoff=200); Benzodiazepines Screen,Urine Negative ng/mL (Cutoff=200); Cannabinoid Screen,Urine Positive ng/mL (Cutoff = 50); Cocaine Screen,Urine Negative ng/mL (Cutoff= 300); Opiate Screen,Urine Negative ng/mL (Cutoff=300); Phencyclidine Screen,Urine Negative ng/mL (Cutoff=25)
[2019-04-02] MEDS ORDERED: Pyridoxine (B-6) 20 MG, DiphenhydraMINE 50 MG, MVI, adult with vitamin K 10 ML in D5%... IVP SCH (13:30)
[2019-04-02] MEDS: *HR* Buprenorphine HCl 8 MG TAB.SUBL SL SCH (23:33)
[2019-04-03] MEDS: Prochlorperazine 10 MG/2 ML VIAL IVP PRN ×2 (05:52→19:34)
[2019-04-03] MEDS ORDERED: Pyridoxine (B-6) 20 MG, DiphenhydraMINE 50 MG, MVI, adult with vitamin K 10 ML in D5%... IVP SCH (06:15)
[2019-04-03] MEDS ORDERED: Capsaicin 0.025% 60 GM TUBE TP PRN (08:21)
[2019-04-03] MEDS: *HR* Buprenorphine HCl 8 MG TAB.SUBL SL SCH ×2 (08:58→19:34)
[2019-04-03 10:12] LABS: Basophils % 0.2 %; Eosinophils % 0.2 %; Hematocrit 31.3 % (35.3-44.9); Immature Granulocytes % 0.3 % (0-4); Lymphocytes # 1.9 K/mcL (0.6-4.6); Lymphocytes % 15.3 %; Mean Corpuscular HGB Conc 33.5 g/dL (31.6-35.5); Mean Corpuscular Volume 89.4 fL (83.0-100.0); Mean Platelet Volume 9.5 fL (9.4-12.4); Monocytes # 0.8 K/mcL (0.0-1.3); Neutrophils # 9.7 K/mcL (1.6-8.9); Platelet Count 271 K/mcL (140-400); Red Cell Distribution Width 12.5 % (11.5-14.5); White Blood Count 12.4 K/mcL (4.3-11.1)
[2019-04-03 10:15] LABS: Hemoglobin 10.5 g/dL (11.5-15.4)
[2019-04-03 10:32] LABS: Potassium 3.1 mEq/L (3.5-5.1)
== END 2019-04-03 20:00 | disposition home or self-care (01) ==
LOC: EMEROOARM 22:55 → 1NENULAB 22:55
PROVIDERS: ADMIT Obstetrics & Gynecology; ATTEND Obstetrics & Gynecology

== ENCOUNTER 2019-06-30 08:57 | Observation (INO) ==
[2019-06-30] MEDS ORDERED: Ringers Solution, Lactated 1,000 ML IVC SCH ×2 (09:00→09:15)
[2019-06-30] MEDS ORDERED: Ringers Solution, Lactated 1,000 ML IVC ONE (09:09)
[2019-06-30] MEDS ORDERED: Ringers Solution, Lactated 1,000 ML ONE ×2 (09:13→10:46)
[2019-06-30 09:51] LABS: Basophils % 0.3 %; Eosinophils # 0.4 K/mcL (0.0-0.6); Eosinophils % 3.3 %; Hematocrit 30.4 % (35.3-44.9); Hemoglobin 10.3 g/dL (11.5-15.4); Immature Granulocytes % 0.2 % (0-4); Lymphocytes # 2.8 K/mcL (0.6-4.6); Lymphocytes % 21.7 %; Mean Corpuscular HGB Conc 33.9 g/dL (31.6-35.5); Mean Corpuscular Hemoglobin 30.6 pg (28.0-33.3); Mean Corpuscular Volume 90.2 fL (83.0-100.0); Mean Platelet Volume 10.3 fL (9.4-12.4); Monocytes # 0.6 K/mcL (0.0-1.3); Monocytes % 4.8 %; Platelet Count 189 K/mcL (140-400); Red Blood Count 3.37 M/mcL (3.82-4.97); Red Cell Distribution Width 12.5 % (11.5-14.5); Segmented Neutrophils % 69.7 %; White Blood Count 12.9 K/mcL (4.3-11.1)
[2019-06-30 10:08] LABS: Alanine Aminotransferase 5 Units/L (7-52); Aspartate Amino Transferase 9 Units/L (13-39); BUN/Creatinine Ratio 23 (6-26); Blood Urea Nitrogen 12 mg/dL (6-20); Lactate Dehydrogenase 125 Units/L (140-271); Uric Acid 3.9 mg/dL (2.3-7.6); eGFR For African Americans > 60 (> 60); eGFR For Non-African Americans > 60 (> 60)
[2019-06-30 10:37] LABS: Bilirubin,Urine Negative (Negative); Blood,Urine Negative (Negative); Clarity,Urine Clear (Clear); Color,Urine Yellow (Yellow); Glucose,Urine (UA) Normal (Normal); Ketones,Urine Negative (Negative); Leukocyte Esterase,Urine Negative (Negative); Nitrite,Urine Negative (Negative); Protein,Urine Negative (Neg-Trace); Specific Gravity,Urine 1.016 (1.010-1.025); Urobilinogen,Urine Normal (Normal)
[2019-06-30 10:46] LABS: Protein/Creatinine Ratio,Urine 0.2 mg/mg (0.00-0.20)
[2019-06-30 10:52] LABS: Amphetamine Screen,Urine Negative ng/mL (Cutoff=1000); Barbiturate Screen,Urine Negative ng/mL (Cutoff=200); Benzodiazepines Screen,Urine Negative ng/mL (Cutoff=200); Cannabinoid Screen,Urine Positive ng/mL (Cutoff = 50); Cocaine Screen,Urine Negative ng/mL (Cutoff= 300); Opiate Screen,Urine Negative ng/mL (Cutoff=300); Phencyclidine Screen,Urine Negative ng/mL (Cutoff=25)
[2019-06-30] MEDS ORDERED: D5% in Lactated Ringers 1,000 ML IVC SCH (12:30)
[2019-06-30 13:56] LABS: Protein/Creatinine Ratio,Urine 0.18 mg/mg (0.00-0.20)
== END 2019-06-30 14:15 | disposition home or self-care (01) ==
LOC: 1NENULAB → MERGE 08:57
PROVIDERS: ADMIT Obstetrics & Gynecology; ATTEND Obstetrics & Gynecology

== ENCOUNTER 2019-07-14 18:34 | Inpatient (IN) ==
[~2019-07-14 18:34] MED LIST changes: +Famotidine 20 MG/2 ML VIAL IVP PRN; +Lidocaine 1% 20 ML MDV INFILT STA; -Metoclopramide 10 MG/2 ML VIAL IVP ONE; +Metoclopramide 10 MG/2 ML VIAL IVP PRN; +Naloxone 0.4 MG/ML INJ IVP PRN; +Ondansetron 4 MG/2 ML VIAL IVP PRN; -Ringers Solution, Lactated 1,000 ML ONE
[2019-07-14] MEDS: Ringers Solution, Lactated 1,000 ML IVC SCH ×2 (18:35→19:55)
[2019-07-14] MEDS ORDERED: Ringers Solution, Lactated 1,000 ML ONE (18:37)
[2019-07-14] MEDS ORDERED: Oxytocin 20 units/ LR 1000 mL 20 UNIT/1,000 ML BAG IVC ONE (18:37)
[2019-07-14 18:48] LABS: Basophils % 0.3 %; Eosinophils # 0.3 K/mcL (0.0-0.6); Eosinophils % 2.7 %; Hematocrit 31.5 % (35.3-44.9); Hemoglobin 11.1 g/dL (11.5-15.4); Immature Granulocytes % 0.5 % (0-4); Lymphocytes # 2.7 K/mcL (0.6-4.6); Lymphocytes % 22.7 %; Mean Corpuscular HGB Conc 35.2 g/dL (31.6-35.5); Mean Corpuscular Hemoglobin 30.5 pg (28.0-33.3); Mean Corpuscular Volume 86.5 fL (83.0-100.0); Mean Platelet Volume 10.1 fL (9.4-12.4); Monocytes # 0.7 K/mcL (0.0-1.3); Monocytes % 5.8 %; Neutrophils # 8.1 K/mcL (1.6-8.9); Platelet Count 211 K/mcL (140-400); Red Blood Count 3.64 M/mcL (3.82-4.97); Red Cell Distribution Width 12.8 % (11.5-14.5); White Blood Count 11.9 K/mcL (4.3-11.1)
[2019-07-14] MEDS ORDERED: Bupivacaine-MPF 0.25% 10 ML VIAL ONE (18:57)
[2019-07-14] MEDS ORDERED: *HR* FentaNYL (PF) 100 MCG/2 ML VIAL ONE (18:57)
[2019-07-14] MEDS ORDERED: Epidural Premix (fent/bupiv) 110 ML EP ONE (18:58)
[2019-07-14] MEDS ORDERED: EPHEDrine 50 MG/ML VIAL IVP PRN (19:39)
[2019-07-14] MEDS ORDERED: Epidural Premix (fent/bupiv) 110 ML EP SCH (19:45)
[2019-07-14 19:57] LABS: Amphetamine Screen,Urine Negative ng/mL (Cutoff=1000); Barbiturate Screen,Urine Negative ng/mL (Cutoff=200); Benzodiazepines Screen,Urine Negative ng/mL (Cutoff=200); Cannabinoid Screen,Urine Positive ng/mL (Cutoff = 50); Cocaine Screen,Urine Negative ng/mL (Cutoff= 300); Opiate Screen,Urine Negative ng/mL (Cutoff=300); Phencyclidine Screen,Urine Negative ng/mL (Cutoff=25)
[2019-07-15] MEDS ORDERED: Oxytocin 20 units/ LR 1000 mL 20 UNIT/1,000 ML BAG IVC SCH (00:18)
[2019-07-15] MEDS ORDERED: Rho Immune Globulin 1,500 UNIT SYRINGE IM PRN (00:18)
[2019-07-15] MEDS ORDERED: Benzocaine/Menthol 56 GM AEROSOL SPRAY TP PRN (00:18)
[2019-07-15] MEDS ORDERED: Lanolin 7 G OINT...G. TP PRN (00:18)
[2019-07-15] MEDS: Ibuprofen 600 MG TABLET PO PRN ×3 (00:26→15:55)
[2019-07-15] MEDS: *HR* Buprenorphine HCl 8 MG TAB.SUBL SL SCH ×2 (08:22→21:08)
[2019-07-15] MEDS: Prenatal Vit/FA 1 EACH TABLET PO SCH (08:22)
[2019-07-15] MEDS ORDERED: Famotidine 20 MG TABLET PO SCH (09:00)
[2019-07-15] MEDS ORDERED: Measles/Mumps/Rubella Vacc 0.5 ML VIAL SQ ONE (11:21)
[2019-07-15] MEDS: Ondansetron ODT 4 MG TAB.RAPDIS SL PRN ×2 (14:48→21:08)
[2019-07-15] MEDS: Acetaminophen 325 MG TABLET PO PRN (21:07)
[2019-07-15] MEDS: Famotidine 20 MG TABLET PO SCH (21:07)
[2019-07-16] MEDS: Ibuprofen 600 MG TABLET PO PRN (01:14)
[2019-07-16] MEDS: Acetaminophen 325 MG TABLET PO PRN (05:54)
[2019-07-16 07:57] VITALS: BP 115/80
[2019-07-16] MEDS: Prenatal Vit/FA 1 EACH TABLET PO SCH (08:30)
[2019-07-16] MEDS: *HR* Buprenorphine HCl 8 MG TAB.SUBL SL SCH (08:30)
[2019-07-16] MEDS: Famotidine 20 MG TABLET PO SCH (08:30)
== END 2019-07-16 14:10 | disposition home or self-care (01) | DRG 560 ==
LOC: 1NENULAB → 1NENUOBS 07-15 00:17
PROVIDERS: ADMIT Registered Nurse; ATTEND Registered Nurse